=== PATIENT | male | born 1935 | race Caucasian/White ===

== ENCOUNTER 2023-08-07 19:16 | Emergency (ER) | payer OTHER, SELFPAY ==
[2023-08-07 19:17] VITALS: BP 184/92
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
[2023-08-07 21:26] VITALS: BP 180/97
[2023-08-07 21:35] LABS: % Basophils 0.2 % (0-2); % Eosinophils 0.6 % (0-6); % Immature Granulocytes 0.8 % (0-0.5); % Monocytes 5.5 % (1.7-9.3); % Neutrophils 89.9 % (42.2-75.2); Absolute Eosinophils 0.1 10^3/uL (0-0.7); Absolute Immature Granulocytes 0.1 10^3/uL (0-0.05); Absolute Lymphocytes 0.6 10^3/uL (1.2-3.4); Absolute Neutrophils 16.7 10^3/uL (1.4-6.5); Hematocrit 43.2 % (39.0-52.0); Hemoglobin 14.7 g/dL (13.0-18.0); Mean Corpuscular Hgb 31.3 pg (27.0-31.0); Mean Corpuscular Volume 91.9 fL (80.0-94.0); Mean Platelet Volume 9.6 fL (7.4-10.4); Nucleated Red Blood Cells % 0 % (-); Platelet Count 346 10^3/uL (130-400); Red Cell Dist. Width 12.2 % (11.5-14.5); White Blood Cell Count 18.6 10^3/uL (4.8-10.8)
[2023-08-07 21:51] LABS: ALT (SGPT) 40 U/L (0-50); AST (SGOT) 59 U/L (17-59); Albumin 4.6 g/dl (3.5-5.0); Alkaline Phosphatase 80 U/L (38-126); Blood Urea Nitrogen 24 mg/dl (9-20); Carbon Dioxide 28 mmol/L (22-30); Chloride 97 mmol/L (98-107); Glucose 153 mg/dl (70-99); Sodium 136 mmol/L (135-145); Total Bilirubin 0.6 mg/dl (0.2-1.3); Total Protein 7.1 g/dl (6.3-8.2); eGFR > 60.00
[2023-08-07 22:00] VITALS: BP 146/91
[2023-08-07] MEDS: TYLENOL 650 MG PO (22:35)
[2023-08-07 23:00] VITALS: BP 148/88
== END 2023-08-07 23:42 | disposition home or self-care (01) ==
LOC: EMR 19:16
PROVIDERS: Physician Assistant; EMERGENCY PHYSICIAN Emergency Medicine; FAMILY PHYSICIAN Registered Nurse
DX: S39.012A Strain of muscle, fascia and tendon of lower back, initial encounter (principal); S80.02XA Contusion of left knee, initial encounter; V89.2XXA Person injured in unspecified motor-vehicle accident, traffic, initial encounter; Y92.410 Unspecified street and highway as the place of occurrence of the external cause; I48.91 Unspecified atrial fibrillation; I10 Essential (primary) hypertension; Z79.01 Long term (current) use of anticoagulants
CPT/HCPCS: 99284; 70450; 71260; 72050; 73564; 74177; 80053; 85025; Q9967

== ENCOUNTER 2023-08-13 14:18 | Emergency (ER) | payer OTHER, SELFPAY ==
[2023-08-13 14:20] VITALS: BP 119/72
[2023-08-13 14:34] LABS: % Basophils 0.2 % (0-2); % Eosinophils 0.4 % (0-6); % Immature Granulocytes 0.9 % (0-0.5); % Lymphocytes 6.7 % (20.5-51.1); % Monocytes 7.6 % (1.7-9.3); % Neutrophils 84.2 % (42.2-75.2); Absolute Eosinophils 0.1 10^3/uL (0-0.7); Absolute Immature Granulocytes 0.1 10^3/uL (0-0.05); Absolute Lymphocytes 0.9 10^3/uL (1.2-3.4); Absolute Neutrophils 11.1 10^3/uL (1.4-6.5); Hematocrit 30.3 % (39.0-52.0); Mean Corp Hgb Conc. 34.7 g/dL (33.0-37.0); Mean Corpuscular Hgb 31.6 pg (27.0-31.0); Mean Corpuscular Volume 91.3 fL (80.0-94.0); Mean Platelet Volume 9.4 fL (7.4-10.4); Nucleated Red Blood Cells % 0 % (-); Platelet Count 347 10^3/uL (130-400); Red Blood Cell Count 3.32 10^6/uL (4.70-6.10); Red Cell Dist. Width 12.6 % (11.5-14.5); White Blood Cell Count 13.2 10^3/uL (4.8-10.8)
[2023-08-13 14:52] LABS: Blood Urea Nitrogen 29 mg/dl (9-20); Calcium 9.4 mg/dl (8.4-10.2); Carbon Dioxide 24 mmol/L (22-30); Chloride 100 mmol/L (98-107); Glucose 216 mg/dl (70-99); Sodium 132 mmol/L (135-145); eGFR > 60.00
[2023-08-13 14:59] LABS: Hemoglobin 10.5 g/dL (13.0-18.0)
[2023-08-13 16:35] VITALS: BMI 23.9
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
[2023-08-13] MEDS: NSS 1000 IV (17:07)
[2023-08-13 18:03] LABS: Urine Albumin Negative (Neg - Trace); Urine Bilirubin Negative (Negative); Urine Character Clear (Clear); Urine Color Yellow; Urine Glucose Negative (Negative); Urine Ketone Negative (Negative); Urine Leukocyte Negative (Negative); Urine Nitrite Negative (Negative); Urine Occult Blood Negative (Negative); Urine Urobilinogen Negative (Neg - 1+); Urine pH 6.5 (5.0-9.0)
[2023-08-13 18:43] VITALS: BP 155/82
== END 2023-08-13 18:44 | disposition home or self-care (01) ==
LOC: EMR 14:18
PROVIDERS: Emergency Medicine; Physician Assistant; EMERGENCY PHYSICIAN Student in an Organized Health Care Education/Training Program; FAMILY PHYSICIAN Family Medicine
DX: S80.12XA Contusion of left lower leg, initial encounter (principal); S80.02XA Contusion of left knee, initial encounter; R53.83 Other fatigue; K59.00 Constipation, unspecified; V49.9XXA Car occupant (driver) (passenger) injured in unspecified traffic accident, initial encounter; D64.9 Anemia, unspecified; I10 Essential (primary) hypertension; I48.91 Unspecified atrial fibrillation; Z79.01 Long term (current) use of anticoagulants; Z88.2 Allergy status to sulfonamides; Z88.8 Allergy status to other drugs, medicaments and biological substances
CPT/HCPCS: 99284; 96360; 80048; 81003; 85025

== ENCOUNTER → 2023-08-18 12:58 | Outpatient (REF) | payer OTHER, SELFPAY | LOC: HWRAD 12:58 | PROVIDERS: ATTENDING PHYSICIAN Student in an Organized Health Care Education/Training Program | DX: S80.12XD Contusion of left lower leg, subsequent encounter (principal); T14.8XXA Other injury of unspecified body region, initial encounter | CPT/HCPCS: 93971 ==

== ENCOUNTER 2023-08-21 21:55 | Inpatient (IN) | payer OTHER, SELFPAY ==
[2023-08-21 13:55] VITALS: BP 129/77
[2023-08-21 14:16] LABS: % Basophils 0.1 % (0-2); % Eosinophils 0.3 % (0-6); % Immature Granulocytes 0.6 % (0-0.5); % Lymphocytes 5.3 % (20.5-51.1); % Monocytes 9.4 % (1.7-9.3); % Neutrophils 84.3 % (42.2-75.2); Absolute Immature Granulocytes 0.1 10^3/uL (0-0.05); Absolute Lymphocytes 0.8 10^3/uL (1.2-3.4); Absolute Monocytes 1.3 10^3/uL (0.1-0.6); Hematocrit 31.6 % (39.0-52.0); Hemoglobin 10.8 g/dL (13.0-18.0); Mean Corp Hgb Conc. 34.2 g/dL (33.0-37.0); Mean Corpuscular Hgb 30.9 pg (27.0-31.0); Mean Corpuscular Volume 90.5 fL (80.0-94.0); Mean Platelet Volume 8.8 fL (7.4-10.4); Nucleated Red Blood Cells % 0 % (-); Platelet Count 695 10^3/uL (130-400); Red Blood Cell Count 3.49 10^6/uL (4.70-6.10); Red Cell Dist. Width 13.3 % (11.5-14.5); White Blood Cell Count 14.2 10^3/uL (4.8-10.8)
[2023-08-21 14:35] LABS: ALT (SGPT) 30 U/L (0-50); AST (SGOT) 35 U/L (17-59); Albumin 4.1 g/dl (3.5-5.0); Alkaline Phosphatase 167 U/L (38-126); Blood Urea Nitrogen 47 mg/dl (9-20); Calcium 9.5 mg/dl (8.4-10.2); Carbon Dioxide 30 mmol/L (22-30); Chloride 95 mmol/L (98-107); Glucose 176 mg/dl (70-99); Potassium 4.9 mmol/L (3.5-5.1); Sodium 131 mmol/L (135-145); Total Bilirubin 1.2 mg/dl (0.2-1.3); eGFR > 60.00
[2023-08-21 14:43] LABS: NT-proBNP 2570 pg/ml
[2023-08-21 19:02] LABS: Lactic Acid 1.3 mmol/L (0.7-2.0)
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
[2023-08-21] MEDS: VANCOCIN 200 IV (20:16)
[2023-08-21 21:25] VITALS: BP 137/76
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
[2023-08-21 22:09] LABS: Iron 59 ug/dl (49-181)
[2023-08-21 22:17] LABS: Percent Saturation 18 % (20-50); Total Iron Binding Capacity 321 ug/dl (261-462)
[2023-08-22] VITALS (8 sets, daily range): BP systolic 113–145; BP diastolic 60–96; PULSE 102; BMI 23.6
[2023-08-22] MEDS: ANCEF 10 IV ×3 (02:19→17:55)
--- NOTE | 2023-08-22 04:45 | PTCARENOTE ---
Pt received from the ED NAD. BRIA Pt with no complaints of pain at this time. Oriented to room, call rodney within reach
[2023-08-22 05:15] LABS: Folate 13.4 ng/ml (2.76-20); Vitamin B12 296 pg/ml (239-931)
[2023-08-22 05:37] LABS: Hematocrit 26.9 % (39.0-52.0); Hemoglobin 9.4 g/dL (13.0-18.0); Mean Corp Hgb Conc. 34.9 g/dL (33.0-37.0); Mean Corpuscular Hgb 31.2 pg (27.0-31.0); Mean Corpuscular Volume 89.4 fL (80.0-94.0); Mean Platelet Volume 8.7 fL (7.4-10.4); Platelet Count 545 10^3/uL (130-400); Red Blood Cell Count 3.01 10^6/uL (4.70-6.10)
[2023-08-22 06:04] LABS: Blood Urea Nitrogen 38 mg/dl (9-20); Calcium 9.1 mg/dl (8.4-10.2); Carbon Dioxide 29 mmol/L (22-30); Chloride 95 mmol/L (98-107); Estimated Creatinine Clearance 63 ml/min; Glucose 131 mg/dl (70-99); Potassium 3.9 mmol/L (3.5-5.1); Sodium 132 mmol/L (135-145); eGFR > 60.00
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
[2023-08-22 08:10] LABS: Glucose - Point of Care 131 mg/dl (70-99)
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
[2023-08-22 08:32] LABS: Glycohemoglobin (HgbA1c) 6.8 % (4.0-5.6)
[2023-08-22] MEDS: NOVOLOG FLEXPEN-LOW RESISTANCE SC (08:36)
[2023-08-22] MEDS: TENORMIN 50 MG PO (08:37)
[2023-08-22] MEDS: ZESTRIL 40 MG PO (08:37)
[2023-08-22] MEDS: ORETIC 25 MG PO (08:37)
[2023-08-22] MEDS: TYLENOL 1000 MG PO ×3 (09:52→21:08)
--- NOTE | 2023-08-22 10:58 | WOUNDNOTE ---
L DORSAL FOOT WITH PHOTO FLASH
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
[2023-08-22] MEDS: ROXICODONE 5 MG PO (12:03)
[2023-08-22 12:07] LABS: Glucose - Point of Care 253 mg/dl (70-99)
[2023-08-22] MEDS: NOVOLOG FLEXPEN-LOW RESISTANCE 3 UNITS SC ×2 (12:20→17:55)
[2023-08-22] MEDS: SANTYL OINTMENT 1 APPLIC TOPICAL (12:33)
[2023-08-22] MEDS: LOPRESSOR 50 MG PO ×3 (15:55→23:29)
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
[2023-08-22 16:48] LABS: Glucose - Point of Care 178 mg/dl (70-99)
[2023-08-22 17:44] LABS: Glucose - Point of Care 263 mg/dl (70-99)
[2023-08-22] MEDS: CRESTOR 20 MG PO (17:54)
[2023-08-22 21:50] LABS: Glucose - Point of Care 153 mg/dl (70-99)
[2023-08-23] MEDS: ANCEF 10 IV ×3 (01:55→18:02)
[2023-08-23] MEDS: ROXICODONE 5 MG PO ×3 (05:10→18:00)
[2023-08-23] MEDS: LOPRESSOR 50 MG PO (06:25)
[2023-08-23 06:42] LABS: Hematocrit 29.1 % (39.0-52.0); Hemoglobin 9.6 g/dL (13.0-18.0); Mean Corpuscular Hgb 30.5 pg (27.0-31.0); Mean Corpuscular Volume 92.4 fL (80.0-94.0); Mean Platelet Volume 8.9 fL (7.4-10.4); Platelet Count 550 10^3/uL (130-400); Red Blood Cell Count 3.15 10^6/uL (4.70-6.10); Red Cell Dist. Width 13.1 % (11.5-14.5); White Blood Cell Count 9.2 10^3/uL (4.8-10.8)
[2023-08-23 07:00] VITALS: BP 125/73
[2023-08-23 07:02] LABS: Blood Urea Nitrogen 26 mg/dl (9-20); Calcium 8.7 mg/dl (8.4-10.2); Carbon Dioxide 31 mmol/L (22-30); Chloride 98 mmol/L (98-107); Estimated Creatinine Clearance 72 ml/min; Glucose 149 mg/dl (70-99); Magnesium 1.9 mg/dl (1.6-2.3); Sodium 133 mmol/L (135-145); eGFR > 60.00
[2023-08-23 07:53] LABS: Glucose - Point of Care 155 mg/dl (70-99)
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
[2023-08-23] MEDS: SANTYL OINTMENT 1 APPLIC TOPICAL (09:15)
[2023-08-23] MEDS: TYLENOL 1000 MG PO ×3 (09:15→20:42)
[2023-08-23] MEDS: NOVOLOG FLEXPEN-LOW RESISTANCE 1 UNITS SC ×2 (09:16→18:01)
[2023-08-23] MEDS: ORETIC 25 MG PO (09:16)
[2023-08-23] MEDS: ZESTRIL 40 MG PO (09:16)
[2023-08-23] MEDS: LOPRESSOR 25 MG PO ×2 (11:25→20:42)
[2023-08-23 12:11] LABS: Glucose - Point of Care 260 mg/dl (70-99)
--- NOTE | 2023-08-23 12:14 | VNURNOTE ---
Home Health Liaison met with patient and son Florian at 1145 to discuss [facility] nurse/therapy, visits, schedule and homebound status. Patient is agreeable and understands that visits at home will be 2-3 x per week to assess and teach medical management
and wound care.
[facility] brochure provided with contact information. Patient is aware that [facility] will contact him for start of care in 1-2 days after discharge from .
[facility] referral completed in [facility].
--- NOTE | 2023-08-23 14:14 | W.PN.GS2 ---
Today's Communication / Plan
-
No acute surgical intervention warranted at this time. The black eschar over the knee will slough off with time.
Wound care/activity: Ricky wrap and elevate the leg above the level of the heart is much as possible to reduce swelling when resting. Periodic ice packs as able as well. Company with nonocclusive dressing. Okay to ambulate and bear weight as able.
NSAIDs for pain control.
Continue holding anticoagulation for now, consider restarting tomorrow.
Reasonable for short course of antibiotics x 7 days
Surgery will continue to follow.
Assessment / Plan
-
This is an 88-year-old male with a history of A-fib on Eliquis, CHF, diabetes, COPD who presents with a traumatic left lower extremity hematoma. There is no underlying bony pathology and his motor sensory exam is reassuring. His white count is
normal and he is afebrile. There are no signs of infected hematoma at this time.
No acute surgical intervention warranted at this time. The black eschar over the knee will slough off with time.
Wound care/activity: Ricky wrap and elevate the leg above the level of the heart is much as possible to reduce swelling when resting. Periodic ice packs as able as well. Company with nonocclusive dressing. Okay to ambulate and bear weight as able.
NSAIDs for pain control.
Continue holding anticoagulation for now, consider restarting tomorrow.
Reasonable for short course of antibiotics x 7 days
Surgery will continue to follow.
Time Spent
Total Time Spent with Patient (in minutes): 20
Subjective Data
-
Date of Service: August 23, 2023
Interval Events:
No acute events overnight. Slept well. Pain Controlled.
Objective Data
-
Intake and Output
08/22/23 08/23/23 08/24/23
06:59 06:59 06:59
Intake Total 1380 / 1380
Output Total 200 / 200 1575 / 1575
Balance -200 / -200 -195 / -195
Intake:
Oral fluids 1380 / 1380
Output:
Urine, Voided 200 / 200 1575 / 1575
Vital Signs
Temp Pulse Resp BP Pulse Ox
97.4 F 83 16 125/73 98
08/23/23 07:00 08/23/23 07:00 08/23/23 07:00 08/23/23 07:00 08/23/23 07:00
Lab Results
08/23/23 06:12
08/23/23 06:12
Calcium 8.7 mg/dl (8.4-10.2) 08/23/23 06:12
Magnesium 1.9 mg/dl (1.6-2.3) 08/23/23 06:12
Total Bilirubin 1.2 mg/dl (0.2-1.3) 08/21/23 14:07
AST 35 U/L (17-59) 08/21/23 14:07
ALT 30 U/L (0-50) 08/21/23 14:07
Alkaline Phosphatase 167 U/L (38-126) H 08/21/23 14:07
Total Protein 7.0 g/dl (6.3-8.2) 08/21/23 14:07
Albumin 4.1 g/dl (3.5-5.0) 08/21/23 14:07
Physical Exam
-
GENERAL/NEURO: Awake, Alert, no distress
CHEST: Unlabored breathing on RA
ABDOMEN: Soft, Non-Tender, Non-Distended
Left lower extremity: He has some mild edema in the left lower extremity below the knee. He has a roughly 3 x 4 cm black eschar over the knee with no sign of an underlying infection. There is bruising noted down to the level of the toes however
motor and sensation is intact and equal bilaterally.
[2023-08-23 15:00] VITALS: BP 132/70
[2023-08-23 15:08] LABS: Glucose - Point of Care 291 mg/dl (70-99)
[2023-08-23] MEDS: NOVOLOG FLEXPEN-LOW RESISTANCE 3 UNITS SC (15:31)
[2023-08-23 17:17] LABS: Glucose - Point of Care 151 mg/dl (70-99)
[2023-08-23] MEDS: CRESTOR 20 MG PO (18:02)
[2023-08-23] MEDS: ANCEF IV (18:08)
[2023-08-23 21:35] LABS: Glucose - Point of Care 201 mg/dl (70-99)
[2023-08-23 23:35] VITALS: BP 118/59
[2023-08-24] MEDS: ANCEF 10 IV ×3 (02:38→17:04)
[2023-08-24] MEDS: ROXICODONE 5 MG PO ×3 (03:51→20:41)
[2023-08-24 05:40] LABS: Hematocrit 32.4 % (39.0-52.0); Hemoglobin 10.8 g/dL (13.0-18.0); Mean Corp Hgb Conc. 33.3 g/dL (33.0-37.0); Mean Corpuscular Hgb 30.9 pg (27.0-31.0); Mean Corpuscular Volume 92.8 fL (80.0-94.0); Mean Platelet Volume 8.8 fL (7.4-10.4); Platelet Count 614 10^3/uL (130-400); Red Blood Cell Count 3.49 10^6/uL (4.70-6.10); Red Cell Dist. Width 13.1 % (11.5-14.5); White Blood Cell Count 10.3 10^3/uL (4.8-10.8)
[2023-08-24 05:58] LABS: Blood Urea Nitrogen 26 mg/dl (9-20); Carbon Dioxide 29 mmol/L (22-30); Chloride 99 mmol/L (98-107); Estimated Creatinine Clearance 72 ml/min; Glucose 138 mg/dl (70-99); Magnesium 1.9 mg/dl (1.6-2.3); Potassium 4.3 mmol/L (3.5-5.1); Sodium 132 mmol/L (135-145); eGFR > 60.00
[2023-08-24 06:00] VITALS: BMI 22.3
[2023-08-24 07:41] VITALS: BP 143/79
[2023-08-24 08:02] LABS: Glucose - Point of Care 147 mg/dl (70-99)
[2023-08-24] MEDS: NOVOLOG FLEXPEN-LOW RESISTANCE SC ×2 (08:03→16:51)
[2023-08-24] MEDS: TYLENOL 1000 MG PO ×3 (08:58→21:37)
[2023-08-24] MEDS: ZESTRIL 20 MG PO (08:58)
[2023-08-24] MEDS: ELIQUIS 5 MG PO ×2 (08:59→20:41)
[2023-08-24] MEDS: ORETIC 25 MG PO (08:59)
[2023-08-24] MEDS: LOPRESSOR 25 MG PO ×2 (08:59→20:42)
[2023-08-24] MEDS: SANTYL OINTMENT 1 APPLIC TOPICAL (08:59)
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
--- NOTE | 2023-08-24 10:54 | W.PN.GS2 ---
Addendum entered and electronically signed by Mikey Mcgregor MD 08/24/23 11:44:
pt seen and examined with FI[employer] PRO[employer] MANAGER
family at bedside
pt and family report significant improvement in redness and swelling
LLE dressing/wrap removed: minimal erythema, persistent knee swelling/fluctuance and dry clean eschar in place
A/P: no role for surgical debridement/drainage
compression
just simple wound care to keep eschar covered for now
abx for cellulitis
outpt follow up with [facility]
signing off, please call if can be of further assistance with care
Original Note:
Today's Communication / Plan
-
Local wound care
Assessment / Plan
-
This is an 88-year-old male with a history of A-fib on Eliquis, CHF, diabetes, COPD who presents with a traumatic left lower extremity hematoma. There is no underlying bony pathology and his motor sensory exam is reassuring. His white count is
normal and he is afebrile. There are no signs of infected hematoma at this time.
[facility]
Labs stable
Will continue to follow non-operatively. The black eschar over the knee will slough off with time.
Wound care/activity: Ricky wrap and elevate the leg to reduce swelling when resting. Periodic ice packs as able as well. Company with nonocclusive dressing. Okay to ambulate and bear weight as able.
NSAIDs for pain control.
Ok to restart AC
Reasonable for short course of antibiotics x 7 days
Follow up in wound care clinic
Subjective Data
-
Date of Service: August 24, 2023
Patient seen and examined at bedside with Dr. Mcgregor. No significant pain to extremity. Edema improved.
Objective Data
-
Intake and Output
08/23/23 08/24/23 08/25/23
06:59 06:59 06:59
Intake Total 1380 / 1380 920 / 920
Output Total 1575 / 1575 750 / 750
Balance -195 / -195 170 / 170
Intake:
Oral fluids 1380 / 1380 920 / 920
Output:
Urine, Voided 1575 / 1575 750 / 750
Vital Signs
Temp Pulse Resp BP Pulse Ox
97.3 F 75 16 143/79 98
08/24/23 07:41 08/24/23 07:41 08/24/23 07:41 08/24/23 07:41 08/24/23 07:41
Lab Results
08/24/23 05:17
08/24/23 05:17
Calcium 9.0 mg/dl (8.4-10.2) 08/24/23 05:17
Magnesium 1.9 mg/dl (1.6-2.3) 08/24/23 05:17
Total Bilirubin 1.2 mg/dl (0.2-1.3) 08/21/23 14:07
AST 35 U/L (17-59) 08/21/23 14:07
ALT 30 U/L (0-50) 08/21/23 14:07
Alkaline Phosphatase 167 U/L (38-126) H 08/21/23 14:07
Total Protein 7.0 g/dl (6.3-8.2) 08/21/23 14:07
Albumin 4.1 g/dl (3.5-5.0) 08/21/23 14:07
Physical Exam
-
NAD
Left lower extremity: He has some mild edema in the left lower extremity below the knee. He has a roughly 3 x 4 cm black eschar over the knee with underlying hematoma. There is bruising noted down to the level of the toes however motor and
sensation is intact and equal bilaterally.
[2023-08-24 12:19] LABS: Glucose - Point of Care 260 mg/dl (70-99)
[2023-08-24] MEDS: LEXAPRO 10 MG PO (12:40)
[2023-08-24] MEDS: NOVOLOG FLEXPEN-LOW RESISTANCE 3 UNITS SC (12:40)
[2023-08-24 14:01] VITALS: BP 127/75
[2023-08-24 15:40] VITALS: BP 123/62
[2023-08-24 16:46] LABS: Glucose - Point of Care 129 mg/dl (70-99)
[2023-08-24] MEDS: CRESTOR 20 MG PO (17:04)
[2023-08-24 21:40] LABS: Glucose - Point of Care 273 mg/dl (70-99)
[2023-08-24 23:33] VITALS: BP 110/66
[2023-08-25] MEDS: ANCEF 10 IV ×2 (02:00→08:51)
[2023-08-25 05:37] LABS: Hematocrit 32.7 % (39.0-52.0); Hemoglobin 10.7 g/dL (13.0-18.0); Mean Corp Hgb Conc. 32.7 g/dL (33.0-37.0); Mean Corpuscular Hgb 30.5 pg (27.0-31.0); Mean Corpuscular Volume 93.2 fL (80.0-94.0); Mean Platelet Volume 8.6 fL (7.4-10.4); Platelet Count 602 10^3/uL (130-400); Red Blood Cell Count 3.51 10^6/uL (4.70-6.10); White Blood Cell Count 9.2 10^3/uL (4.8-10.8)
[2023-08-25 06:00] VITALS: BMI 22.1
[2023-08-25 06:10] LABS: Blood Urea Nitrogen 24 mg/dl (9-20); Calcium 9.2 mg/dl (8.4-10.2); Carbon Dioxide 29 mmol/L (22-30); Chloride 97 mmol/L (98-107); Estimated Creatinine Clearance 69 ml/min; Glucose 142 mg/dl (70-99); Potassium 4.2 mmol/L (3.5-5.1); Sodium 133 mmol/L (135-145); eGFR > 60.00
[2023-08-25 07:54] VITALS: BP 151/90
[2023-08-25 08:10] LABS: Glucose - Point of Care 136 mg/dl (70-99)
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
[2023-08-25] MEDS: NOVOLOG FLEXPEN-LOW RESISTANCE SC (08:40)
[2023-08-25] MEDS: TYLENOL 1000 MG PO (08:48)
[2023-08-25] MEDS: ZESTRIL 20 MG PO (08:49)
[2023-08-25] MEDS: SANTYL OINTMENT 1 APPLIC TOPICAL (08:49)
[2023-08-25] MEDS: LEXAPRO 10 MG PO (08:49)
[2023-08-25] MEDS: LOPRESSOR 25 MG PO (08:49)
[2023-08-25] MEDS: ORETIC 25 MG PO (08:49)
[2023-08-25] MEDS: ELIQUIS 5 MG PO (08:49)
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
--- NOTE | 2023-08-25 11:39 | CM ---
Pt for discharge today
[facility] to follow for wound care
Pt has ride home
Discussed IMM
Plan - home with [facility]
[2023-08-25 11:59] LABS: Glucose - Point of Care 253 mg/dl (70-99)
[2023-08-25] MEDS: NOVOLOG FLEXPEN-LOW RESISTANCE 3 UNITS SC (12:13)
[2023-08-25 12:27] VITALS: BP 132/83
--- NOTE | 2023-08-25 14:43 | VNURNOTE ---
Call received from patient's daughter in law late 08/24 to discuss private caregivers.
Private caregiver resource list provided along with contact for Stacy Knowles and discussed.
Wound care instructions scanned and emailed to above [employer] coordinator Stacy Knowles.
== END 2023-08-25 12:36 | disposition home health service (06) | DRG 872 ==
LOC: 3 WEST ACU 21:55
PROVIDERS: Nurse Practitioner; Physician Assistant Medical; Student in an Organized Health Care Education/Training Program; ADMITTING PHYSICIAN Hospitalist; ATTENDING PHYSICIAN Family Medicine; EMERGENCY PHYSICIAN Emergency Medicine; FAMILY PHYSICIAN Student in an Organized Health Care Education/Training Program; OTHER PHYSICIAN Surgery
DX: A41.9 Sepsis, unspecified organism (principal); L03.116 Cellulitis of left lower limb; I48.21 Permanent atrial fibrillation; E87.1 Hypo-osmolality and hyponatremia; Z66 Do not resuscitate; D50.0 Iron deficiency anemia secondary to blood loss (chronic); I50.9 Heart failure, unspecified; I11.0 Hypertensive heart disease with heart failure; E11.9 Type 2 diabetes mellitus without complications; Z87.891 Personal history of nicotine dependence; J44.89 Other specified chronic obstructive pulmonary disease; Z79.01 Long term (current) use of anticoagulants; S80.12XA Contusion of left lower leg, initial encounter; E78.00 Pure hypercholesterolemia, unspecified; F41.9 Anxiety disorder, unspecified; F32.A Depression, unspecified; V49.9XXD Car occupant (driver) (passenger) injured in unspecified traffic accident, subsequent encounter
CPT/HCPCS: 76882; 80048; 80053; 82607; 82728; 82746; 82962; 83036; 83540; 83550; 83605; 83735; 83880; 85025; 85027; 87040; 96365; 97116; 97162; 97166; 97530; 97535; 99285

== ENCOUNTER → 2023-09-01 12:36 | Outpatient (REF) | payer OTHER, SELFPAY | LOC: WOUND 12:36 | PROVIDERS: ATTENDING PHYSICIAN Surgery; FAMILY PHYSICIAN Student in an Organized Health Care Education/Training Program | DX: S80.12XA Contusion of left lower leg, initial encounter (principal); X58.XXXA Exposure to other specified factors, initial encounter; L97.229 Non-pressure chronic ulcer of left calf with unspecified severity; I87.2 Venous insufficiency (chronic) (peripheral); I73.9 Peripheral vascular disease, unspecified; I48.91 Unspecified atrial fibrillation; E11.21 Type 2 diabetes mellitus with diabetic nephropathy; I13.0 Hypertensive heart and chronic kidney disease with heart failure and stage 1 through stage 4 chronic kidney disease, or unspecified chronic kidney disease; N18.1 Chronic kidney disease, stage 1; I50.23 Acute on chronic systolic (congestive) heart failure; Z79.01 Long term (current) use of anticoagulants | CPT/HCPCS: 99204 ==

== ENCOUNTER → 2023-09-08 11:32 | Outpatient (REF) | payer OTHER, SELFPAY | LOC: WOUND 11:32 | PROVIDERS: ATTENDING PHYSICIAN Surgery; FAMILY PHYSICIAN Student in an Organized Health Care Education/Training Program | DX: S80.12XA Contusion of left lower leg, initial encounter (principal); L97.229 Non-pressure chronic ulcer of left calf with unspecified severity; I87.2 Venous insufficiency (chronic) (peripheral); I73.9 Peripheral vascular disease, unspecified; I48.91 Unspecified atrial fibrillation; E11.21 Type 2 diabetes mellitus with diabetic nephropathy; I13.0 Hypertensive heart and chronic kidney disease with heart failure and stage 1 through stage 4 chronic kidney disease, or unspecified chronic kidney disease; I50.23 Acute on chronic systolic (congestive) heart failure; Z79.01 Long term (current) use of anticoagulants; N18.1 Chronic kidney disease, stage 1; X58.XXXA Exposure to other specified factors, initial encounter | CPT/HCPCS: 99213 ==

== ENCOUNTER → 2023-09-22 11:16 | Outpatient (REF) | payer OTHER, SELFPAY | LOC: WOUND 11:16 | PROVIDERS: ATTENDING PHYSICIAN Surgery; FAMILY PHYSICIAN Student in an Organized Health Care Education/Training Program | DX: L97.229 Non-pressure chronic ulcer of left calf with unspecified severity (principal); S80.12XA Contusion of left lower leg, initial encounter; I87.2 Venous insufficiency (chronic) (peripheral); I73.9 Peripheral vascular disease, unspecified; I48.91 Unspecified atrial fibrillation; E11.21 Type 2 diabetes mellitus with diabetic nephropathy; I13.0 Hypertensive heart and chronic kidney disease with heart failure and stage 1 through stage 4 chronic kidney disease, or unspecified chronic kidney disease; I50.23 Acute on chronic systolic (congestive) heart failure; N18.1 Chronic kidney disease, stage 1; Z79.01 Long term (current) use of anticoagulants; V89.2XXA Person injured in unspecified motor-vehicle accident, traffic, initial encounter | CPT/HCPCS: 10140; 99213 ==

== ENCOUNTER → 2023-09-29 14:51 | Outpatient (REF) | payer OTHER, SELFPAY | LOC: WOUND 14:51 | PROVIDERS: ATTENDING PHYSICIAN Surgery; FAMILY PHYSICIAN Student in an Organized Health Care Education/Training Program | DX: L97.229 Non-pressure chronic ulcer of left calf with unspecified severity (principal); S51.012A Laceration without foreign body of left elbow, initial encounter; S81.812A Laceration without foreign body, left lower leg, initial encounter; S80.12XA Contusion of left lower leg, initial encounter; I87.2 Venous insufficiency (chronic) (peripheral); I73.9 Peripheral vascular disease, unspecified; I48.91 Unspecified atrial fibrillation; E11.21 Type 2 diabetes mellitus with diabetic nephropathy; I13.0 Hypertensive heart and chronic kidney disease with heart failure and stage 1 through stage 4 chronic kidney disease, or unspecified chronic kidney disease; I50.23 Acute on chronic systolic (congestive) heart failure; N18.1 Chronic kidney disease, stage 1; Z79.01 Long term (current) use of anticoagulants; V89.2XXA Person injured in unspecified motor-vehicle accident, traffic, initial encounter | CPT/HCPCS: 99213 ==

== ENCOUNTER → 2023-10-06 14:39 | Outpatient (REF) | payer OTHER, SELFPAY | LOC: WOUND 14:39 | PROVIDERS: ATTENDING PHYSICIAN Surgery; FAMILY PHYSICIAN Student in an Organized Health Care Education/Training Program | DX: L97.229 Non-pressure chronic ulcer of left calf with unspecified severity (principal); S51.012A Laceration without foreign body of left elbow, initial encounter; S81.812A Laceration without foreign body, left lower leg, initial encounter; I87.2 Venous insufficiency (chronic) (peripheral); I73.9 Peripheral vascular disease, unspecified; I48.91 Unspecified atrial fibrillation; E11.21 Type 2 diabetes mellitus with diabetic nephropathy; I13.0 Hypertensive heart and chronic kidney disease with heart failure and stage 1 through stage 4 chronic kidney disease, or unspecified chronic kidney disease; I50.23 Acute on chronic systolic (congestive) heart failure; N18.1 Chronic kidney disease, stage 1; Z79.01 Long term (current) use of anticoagulants | CPT/HCPCS: 11042 ==

== ENCOUNTER → 2023-10-13 13:52 | Outpatient (REF) | payer OTHER, SELFPAY | LOC: WOUND 13:52 | PROVIDERS: ATTENDING PHYSICIAN Surgery; FAMILY PHYSICIAN Student in an Organized Health Care Education/Training Program | DX: L97.229 Non-pressure chronic ulcer of left calf with unspecified severity (principal); S51.012A Laceration without foreign body of left elbow, initial encounter; S81.812A Laceration without foreign body, left lower leg, initial encounter; S80.12XA Contusion of left lower leg, initial encounter; I87.2 Venous insufficiency (chronic) (peripheral); I73.9 Peripheral vascular disease, unspecified; I48.91 Unspecified atrial fibrillation; E11.21 Type 2 diabetes mellitus with diabetic nephropathy; I13.0 Hypertensive heart and chronic kidney disease with heart failure and stage 1 through stage 4 chronic kidney disease, or unspecified chronic kidney disease; I50.23 Acute on chronic systolic (congestive) heart failure; Z79.01 Long term (current) use of anticoagulants; N18.1 Chronic kidney disease, stage 1; V89.2XXA Person injured in unspecified motor-vehicle accident, traffic, initial encounter | CPT/HCPCS: 99213 ==

== ENCOUNTER → 2023-10-27 13:50 | Outpatient (REF) | payer OTHER, SELFPAY | LOC: WOUND 13:50 | PROVIDERS: ATTENDING PHYSICIAN Surgery; FAMILY PHYSICIAN Student in an Organized Health Care Education/Training Program | DX: L97.229 Non-pressure chronic ulcer of left calf with unspecified severity (principal); S51.012A Laceration without foreign body of left elbow, initial encounter; S81.812A Laceration without foreign body, left lower leg, initial encounter; S80.12XA Contusion of left lower leg, initial encounter; I87.2 Venous insufficiency (chronic) (peripheral); X58.XXXA Exposure to other specified factors, initial encounter | CPT/HCPCS: 11042 ==

== ENCOUNTER → 2023-11-01 12:46 | Outpatient (REF) | payer OTHER, SELFPAY | LOC: RAD 12:46 | PROVIDERS: ATTENDING PHYSICIAN Surgery; FAMILY PHYSICIAN Student in an Organized Health Care Education/Training Program | DX: S80.12XA Contusion of left lower leg, initial encounter (principal); I73.9 Peripheral vascular disease, unspecified; I87.2 Venous insufficiency (chronic) (peripheral) | CPT/HCPCS: 93922; 93925; 93971 ==

== ENCOUNTER → 2023-11-07 13:16 | Outpatient (REF) | payer OTHER, MEDICARE, SELFPAY | LOC: WOUND 13:16 | PROVIDERS: ATTENDING PHYSICIAN Surgery; FAMILY PHYSICIAN Student in an Organized Health Care Education/Training Program | DX: L97.229 Non-pressure chronic ulcer of left calf with unspecified severity (principal); S51.021A Laceration with foreign body of right elbow, initial encounter; X58.XXXA Exposure to other specified factors, initial encounter; S81.812A Laceration without foreign body, left lower leg, initial encounter; S80.12XA Contusion of left lower leg, initial encounter; I87.2 Venous insufficiency (chronic) (peripheral); I73.9 Peripheral vascular disease, unspecified | CPT/HCPCS: 11042 ==

== ENCOUNTER → 2023-11-16 13:33 | Outpatient (REF) | payer OTHER, MEDICARE, SELFPAY | LOC: WOUND 13:33 | PROVIDERS: ATTENDING PHYSICIAN Surgery; FAMILY PHYSICIAN Student in an Organized Health Care Education/Training Program | DX: L97.229 Non-pressure chronic ulcer of left calf with unspecified severity (principal); S51.012A Laceration without foreign body of left elbow, initial encounter; S81.812A Laceration without foreign body, left lower leg, initial encounter; S80.12XA Contusion of left lower leg, initial encounter; I87.2 Venous insufficiency (chronic) (peripheral); I73.9 Peripheral vascular disease, unspecified; I48.91 Unspecified atrial fibrillation; E11.21 Type 2 diabetes mellitus with diabetic nephropathy; I13.0 Hypertensive heart and chronic kidney disease with heart failure and stage 1 through stage 4 chronic kidney disease, or unspecified chronic kidney disease; I50.23 Acute on chronic systolic (congestive) heart failure; N18.1 Chronic kidney disease, stage 1; Z79.01 Long term (current) use of anticoagulants; V89.2XXA Person injured in unspecified motor-vehicle accident, traffic, initial encounter | CPT/HCPCS: 11042 ==

== ENCOUNTER → 2023-12-01 10:54 | Outpatient (REF) | payer OTHER, MEDICARE, SELFPAY | LOC: WOUND 10:54 | PROVIDERS: ATTENDING PHYSICIAN Surgery; FAMILY PHYSICIAN Student in an Organized Health Care Education/Training Program | DX: L97.229 Non-pressure chronic ulcer of left calf with unspecified severity (principal); S51.012A Laceration without foreign body of left elbow, initial encounter; S81.812A Laceration without foreign body, left lower leg, initial encounter; S80.12XA Contusion of left lower leg, initial encounter; I87.2 Venous insufficiency (chronic) (peripheral); I73.9 Peripheral vascular disease, unspecified; I48.91 Unspecified atrial fibrillation; E11.21 Type 2 diabetes mellitus with diabetic nephropathy; I13.0 Hypertensive heart and chronic kidney disease with heart failure and stage 1 through stage 4 chronic kidney disease, or unspecified chronic kidney disease; I50.23 Acute on chronic systolic (congestive) heart failure; Z79.01 Long term (current) use of anticoagulants; N18.1 Chronic kidney disease, stage 1; E11.29 Type 2 diabetes mellitus with other diabetic kidney complication | CPT/HCPCS: 11042 ==

== ENCOUNTER → 2023-12-15 10:54 | Outpatient (REF) | payer OTHER, SELFPAY | LOC: WOUND 10:54 | PROVIDERS: ATTENDING PHYSICIAN Surgery; FAMILY PHYSICIAN Student in an Organized Health Care Education/Training Program | DX: L97.823 Non-pressure chronic ulcer of other part of left lower leg with necrosis of muscle (principal); S81.812A Laceration without foreign body, left lower leg, initial encounter; S80.12XA Contusion of left lower leg, initial encounter; I87.2 Venous insufficiency (chronic) (peripheral); I73.9 Peripheral vascular disease, unspecified; I48.91 Unspecified atrial fibrillation; E11.21 Type 2 diabetes mellitus with diabetic nephropathy; I13.0 Hypertensive heart and chronic kidney disease with heart failure and stage 1 through stage 4 chronic kidney disease, or unspecified chronic kidney disease; I50.23 Acute on chronic systolic (congestive) heart failure; N18.1 Chronic kidney disease, stage 1; Z79.01 Long term (current) use of anticoagulants; E11.22 Type 2 diabetes mellitus with diabetic chronic kidney disease | CPT/HCPCS: 11042 ==

== ENCOUNTER → 2024-01-05 11:03 | Outpatient (REF) | payer OTHER, SELFPAY | LOC: WOUND 11:03 | PROVIDERS: ATTENDING PHYSICIAN Surgery; FAMILY PHYSICIAN Student in an Organized Health Care Education/Training Program | DX: L97.823 Non-pressure chronic ulcer of other part of left lower leg with necrosis of muscle (principal); S81.812A Laceration without foreign body, left lower leg, initial encounter; S80.12XA Contusion of left lower leg, initial encounter; I87.2 Venous insufficiency (chronic) (peripheral); I73.9 Peripheral vascular disease, unspecified; I48.91 Unspecified atrial fibrillation; E11.21 Type 2 diabetes mellitus with diabetic nephropathy; I13.0 Hypertensive heart and chronic kidney disease with heart failure and stage 1 through stage 4 chronic kidney disease, or unspecified chronic kidney disease; N18.1 Chronic kidney disease, stage 1; W19.XXXA Unspecified fall, initial encounter | CPT/HCPCS: 11042 ==

== ENCOUNTER → 2024-01-10 12:52 | Outpatient (REF) | payer OTHER, SELFPAY | LOC: RCS 12:52 | PROVIDERS: ATTENDING PHYSICIAN Internal Medicine Cardiovascular Disease; FAMILY PHYSICIAN Student in an Organized Health Care Education/Training Program | DX: I35.1 Nonrheumatic aortic (valve) insufficiency (principal) | CPT/HCPCS: 93306 ==

== ENCOUNTER → 2024-01-26 11:20 | Outpatient (REF) | payer OTHER, SELFPAY | LOC: WOUND 11:20 | PROVIDERS: ATTENDING PHYSICIAN Surgery; FAMILY PHYSICIAN Student in an Organized Health Care Education/Training Program | DX: L97.823 Non-pressure chronic ulcer of other part of left lower leg with necrosis of muscle (principal); S81.812A Laceration without foreign body, left lower leg, initial encounter; S80.12XA Contusion of left lower leg, initial encounter; I73.9 Peripheral vascular disease, unspecified; I87.2 Venous insufficiency (chronic) (peripheral); I48.91 Unspecified atrial fibrillation; E11.21 Type 2 diabetes mellitus with diabetic nephropathy; I13.0 Hypertensive heart and chronic kidney disease with heart failure and stage 1 through stage 4 chronic kidney disease, or unspecified chronic kidney disease; I50.23 Acute on chronic systolic (congestive) heart failure; N18.1 Chronic kidney disease, stage 1; Z79.01 Long term (current) use of anticoagulants; X58.XXXA Exposure to other specified factors, initial encounter | CPT/HCPCS: 99212 ==

== ENCOUNTER 2024-04-01 08:12 | Inpatient (IN) | payer OTHER, SELFPAY ==
[2024-03-30 12:02] VITALS: BP 131/68
--- NOTE | 2024-03-30 13:00 | ED.GENMED ---
History of Present Illness
<Saritha Vela PA-C - Last Filed: 03/30/24 20:20>
General
Chief Complaint: Swelling
Source: patient and family
Exam Limitations: none
Time Seen by Provider: 03/30/24 12:59
Nursing documentation reviewed up to this point in time: agreed with
History of Present Illness
History of Present Illness:
Patient is an 89-year-old male with history atrial fibrillation on Eliquis, hypertension, hyperlipidemia, chronic back pain presenting to the emergency department with generalized weakness and left lower extremity swelling. Patient states that over
the past week he has been generally weak and fatigued with lack of appetite. Approximately 3 days ago he noticed that his left lower leg was swollen and left foot was red and painful. He is having difficulty ambulating due to pain. He may have
had some chills over the past week. No recent falls or trauma to the foot patient denies any known fevers, chest pain, cough, abdominal pain, urinary symptoms.
Family states that approximately week ago when they saw their dad he was at his baseline and has gradually declined over the past week. They feel that he has been more short of breath with minimal exertion, as well.
Patient did miss a few doses of Eliquis this past week.
Past History
<Saritha Vela PA-C - Last Filed: 03/30/24 20:20>
Past History
ED Past Medical History: Arrthythmia (Atrial fibrillation) and HTN
ED Past Surgical History: None
Social History
Tobacco: Non-smoker
Alcohol: None
Personal:
Living: with family
Employment: Retired
Review of Systems
<Saritha Vela PA-C - Last Filed: 03/30/24 20:20>
Review of Systems
Allergies reviewed?: Yes
All Other Systems: ROS reviewed and negative except as documented in HPI and ROS
Phy Exam
<Saritha Vela PA-C - Last Filed: 03/30/24 20:20>
Physical Exam
Physical Exam:
Vitals: Patient's vital signs are stable. Afebrile
General: Patient is weak appearing. In no apparent distress.
Skin: Warm and dry, no rashes or lesions
Head: Normocephalic, atraumatic
Eyes: Sclera nonicteric. EOMs intact. No nystagmus.
Throat: Dry mucous membranes. Protecting airway
Neck: Normal ROM, no cervical spine tenderness, no meningismus
Cardiac: Irregular rate, normal rhythm, no murmurs.
Pulm: Normal respiratory effort, no wheezes, rales, rhonchi heard on exam.
Abdomen: Abdomen soft and nontender. No rebound tenderness or guarding.
Extremities: 2+ pitting edema of left lower extremity from mid calf to foot. Erythema and tenderness of left foot most notable at left MTP joint with extension across dorsum of foot. Palpable left DP pulse. Negative Homans' sign of left lower
extremity. No edema or cyanosis of RLE with palpable distal pulse.
Neuro: AAOx3. Grossly intact.
Psychiatric: Normal affect.
Scores
<Saritha Vela PA-C - Last Filed: 03/30/24 20:20>
Heart Failure Risk
Heart Failure Risk Score: Yes
History of Stroke or TIA: No
History of intubation for respiratory distress: No
Heart rate on ED arrival >/= 110: No
SaO2 <90% on arrival on room air: No
HR >/=110 during 3min walk test (or too ill to perform test): No
ECG has acute ischemic changes: No
Urea >/=12mmol/L (BUN 33.6mg/dL): Yes
Serum CO2>/=35mmol/L: No
Troponin I or T elevated to OR Level (0.4mg/dL): No
NT-proBNP >/=5,000ng/L (5,000pg/ml): Yes
HF Risk Score: 2
Admission Status: MEDIUM RISK 9.2% Consider observation or discharge to home with homecare & f/u visit to PCP/[employer] Technician, or SNF for treatment
Course
<Saritha Vela PA-C - Last Filed: 03/30/24 20:20>
Orders/Labs/Results
Orders:
Orders
03/30/24 13:24
Electrocardiogram (*1) Urgent
Reason for Study: Fatigue / Weakness
Foot, Left 3 View [CR Foot - Left Min 3 Views] Urgent
Comment:
Reason For Exam: atraumatic pain/swelling L foot near MTP
US Periph Venous LOWER Ext LT Urgent
Comment:
Reason For Exam: atraumtic LLE swelling
03/30/24 13:40
COVID-19 Antigen Urgent
Source: Nasal Swab
Complete Blood Count/With Diff Urgent
Comprehensive Metabolic Panel Urgent
NT-proBNP Urgent
Troponin I Urgent
Uric Acid Urgent
Comment: URIC ACID ADDED ON BY FLOOR 2PM 03-30-24
Influenza A+B Rapid Molecular Urgent
MATTHIEU Source: Nasal Swab
Specimen Description:
03/30/24 14:02
Add On- LAB Urgent
Tests Added?: uric acid
03/30/24 Dinner
Regular
At Your Request: Full Participation
Does patient need a safe tray?: No
03/30/24 15:19
CR Chest - 2 Views Urgent
Comment:
Reason For Exam: shortness of breath, elevated pro-bnp
03/30/24 15:22
0.9% Sodium Chloride 500 ml [Nss] 500 ml IV BOLUS
03/30/24 15:47
Urinalysis Reflex To Culture Urgent
Date Specimen was Collected: 03/30/24
Time Specimen was Collected: 14:51
Urine Microscopic Reflex Cult Urgent
Urine Culture Urgent
MATTHIEU Source: U
Specimen Description:
Date Specimen was Collected: 03/30/24
Time Specimen was Collected: 14:51
03/30/24 16:39
CeFAZolin 2 GRAM [Ancef] 2 grams in 10 ml IV NOW
03/30/24 17:08
Admit/Transfer Patient As Directed
Co-Sign Provider:
Level of Care: Observation services
Assign to:: Medical/Surgical
Physician / Group: preet
Diagnosis: cellulitis, gout
PRN Pain Medication Management As Directed
May give lesser potent ordered pain med per pt: Yes
preference::
Protocol:: Medication orders for pain may be administered in a
manner that supports deferring to patient preference
when the pt is:
- Requesting an ordered lesser potent pain medication.
Least to most potent pain medications are defined
as: acetaminophen < NSAID < tramadol < opioids
(morphine, oxycodone, hydromorphone).
- Requesting a lesser dose of the same medication IF
ORDERED.
- Requesting a less intrusive route of administration
if both routes are prescribed by the provider (PO <
IV).
03/30/24 17:09
Code Status As Directed
Resuscitation Status: Do not resuscitate
Reached after discussion with pt or family/Healthcare POA: Yes
DNR Bracelet Application ONCE
03/30/24 17:45
Acetaminophen [Tylenol] 1,000 mg PO TIDPRN PRN
Dextrose 50%-Water [Dextrose 50% Syringe] 12.5 grams IV [id number] PRN
Glucagon [GlucaGen] 1 mg IM PRN PRN
03/30/24 17:45
VTE Contraindication Routine
VTE Mechanical Device Contraindication: Medical Contraindication
Pharmocologic Contraindication: Medical Contraindication
Activity As Directed
Activity Level: As Tolerated
Bedside Glucose Monitoring As Directed
Frequency: AC&HS
Additional Instructions:: Change to q6h if pt on TPN, tube feeding or not eating
Vital Signs As Directed
Frequency: Per unit guidelines
03/30/24 18:00
Prednisone [Deltasone] 40 mg PO DAILY
Rosuvastatin Calcium [Crestor] 20 mg PO QPM
03/30/24 20:00
Apixaban [Eliquis] 5 mg PO BID
METFORMIN HCl [Glucophage] 500 mg PO BID
Metoprolol [Lopressor] 25 mg PO BID
03/31/24 00:00
CeFAZolin 1 GRAM [Ancef] 1 gram in 5 ml IV Q8
03/31/24 06:00
Complete Blood Count/With Diff IN AM
Comprehensive Metabolic Panel IN AM
Glycohemoglobin (HgbA1c) IN AM
03/31/24 07:30
Insulin Aspart Corrective Low [Novolog Flexpen-Low Resistance] See Protocol SC AC
03/31/24 08:00
Hydrochlorothiazide [Oretic] 25 mg PO DAILY
Lisinopril [Zestril] 10 mg PO DAILY
Abnormal Lab Results
03/30/24 03/30/24
13:40 15:47
WBC 14.8 H 10^3/uL
(4.8-10.8)
RBC 4.34 L 10^6/uL
(4.70-6.10)
Hgb 12.8 L g/dL
(13.0-18.0)
Hct 37.9 L %
(39.0-52.0)
Abs Immat Gran (auto) 0.2 H 10^3/uL
(0-0.05)
Absolute Neuts (auto) 13.3 H 10^3/uL
(1.4-6.5)
Absolute Lymphs (auto) 0.4 L 10^3/uL
(1.2-3.4)
Absolute Monos (auto) 1.0 H 10^3/uL
(0.1-0.6)
Immature Gran % 1.0 H %
(0-0.5)
Neutrophils % 89.4 H %
(42.2-75.2)
Lymphocytes % 2.6 L %
(20.5-51.1)
Sodium 134 L mmol/L
(135-145)
Chloride 94 L mmol/L
(98-107)
BUN 34 H mg/dl
(9-20)
Glucose 158 H mg/dl
(70-99)
Alkaline Phosphatase 191 H U/L
(38-126)
Total Protein 5.9 L g/dl
(6.3-8.2)
Albumin 3.4 L g/dl
(3.5-5.0)
Urine Ketones 1+ A
(Negative)
Ur Occult Blood Reflex 1+ A
(Negative)
Urine Bilirubin 1+ A
(Negative)
Urine RBC 3-6 A /HPF
(0-2)
Urine WBC (Reflex) 11-15 A /HPF
(0-5)
Urine Bacteria (Reflex) Few A
(Negative)
Urine Albumin (Reflex) 2+ A
(Neg - Trace)
03/30/24 13:40
03/30/24 13:40
Vital Signs
Initial and Last Documented VS:
Initial Vital Signs
Temp Pulse Resp BP Pulse Ox
98.1 F 96 18 131/68 99
03/30/24 12:02 03/30/24 12:02 03/30/24 12:02 03/30/24 12:02 03/30/24 12:02
Last Documented Vital Signs
Temp Pulse Resp BP Pulse Ox
98 F 120 18 168/88 94
03/30/24 18:33 03/30/24 17:55 03/30/24 17:55 03/30/24 17:55 03/30/24 18:33
<Chandan Miguel, DO - Last Filed: 03/30/24 15:28>
Orders/Labs/Results
Orders:
Orders
03/30/24 13:24
Electrocardiogram (*1) Urgent
Reason for Study: Fatigue / Weakness
Foot, Left 3 View [CR Foot - Left Min 3 Views] Urgent
Comment:
Reason For Exam: atraumatic pain/swelling L foot near MTP
US Periph Venous LOWER Ext LT Urgent
Comment:
Reason For Exam: atraumtic LLE swelling
03/30/24 13:40
COVID-19 Antigen Urgent
Source: Nasal Swab
Complete Blood Count/With Diff Urgent
Comprehensive Metabolic Panel Urgent
NT-proBNP Urgent
Troponin I Urgent
Uric Acid Urgent
Comment: URIC ACID ADDED ON BY FLOOR 2PM 03-30-24
Influenza A+B Rapid Molecular Urgent
MATTHIEU Source: Nasal Swab
Specimen Description:
03/30/24 14:02
Add On- LAB Urgent
Tests Added?: uric acid
03/30/24 Dinner
Regular
At Your Request: Full Participation
Does patient need a safe tray?: No
03/30/24 15:19
CR Chest - 2 Views Urgent
Comment:
Reason For Exam: shortness of breath, elevated pro-bnp
03/30/24 15:22
0.9% Sodium Chloride 500 ml [Nss] 500 ml IV BOLUS
03/30/24 15:47
Urinalysis Reflex To Culture Urgent
Date Specimen was Collected: 03/30/24
Time Specimen was Collected: 14:51
Urine Microscopic Reflex Cult Urgent
Urine Culture Urgent
MATTHIEU Source: U
Specimen Description:
Date Specimen was Collected: 03/30/24
Time Specimen was Collected: 14:51
03/30/24 16:39
CeFAZolin 2 GRAM [Ancef] 2 grams in 10 ml IV NOW
03/30/24 17:08
Admit/Transfer Patient As Directed
Co-Sign Provider:
Level of Care: Observation services
Assign to:: Medical/Surgical
Physician / Group: preet
Diagnosis: cellulitis, gout
PRN Pain Medication Management As Directed
May give lesser potent ordered pain med per pt: Yes
preference::
Protocol:: Medication orders for pain may be administered in a
manner that supports deferring to patient preference
when the pt is:
- Requesting an ordered lesser potent pain medication.
Least to most potent pain medications are defined
as: acetaminophen < NSAID < tramadol < opioids
(morphine, oxycodone, hydromorphone).
- Requesting a lesser dose of the same medication IF
ORDERED.
- Requesting a less intrusive route of administration
if both routes are prescribed by the provider (PO <
IV).
03/30/24 17:09
Code Status As Directed
Resuscitation Status: Do not resuscitate
Reached after discussion with pt or family/Healthcare POA: Yes
DNR Bracelet Application ONCE
03/30/24 17:45
Acetaminophen [Tylenol] 1,000 mg PO TIDPRN PRN
Dextrose 50%-Water [Dextrose 50% Syringe] 12.5 grams IV [id number] PRN
Glucagon [GlucaGen] 1 mg IM PRN PRN
03/30/24 17:45
VTE Contraindication Routine
VTE Mechanical Device Contraindication: Medical Contraindication
Pharmocologic Contraindication: Medical Contraindication
Activity As Directed
Activity Level: As Tolerated
Bedside Glucose Monitoring As Directed
Frequency: AC&HS
Additional Instructions:: Change to q6h if pt on TPN, tube feeding or not eating
Vital Signs As Directed
Frequency: Per unit guidelines
03/30/24 18:00
Prednisone [Deltasone] 40 mg PO DAILY
Rosuvastatin Calcium [Crestor] 20 mg PO QPM
03/30/24 20:00
Apixaban [Eliquis] 5 mg PO BID
METFORMIN HCl [Glucophage] 500 mg PO BID
Metoprolol [Lopressor] 25 mg PO BID
03/31/24 00:00
CeFAZolin 1 GRAM [Ancef] 1 gram in 5 ml IV Q8
03/31/24 06:00
Complete Blood Count/With Diff IN AM
Comprehensive Metabolic Panel IN AM
Glycohemoglobin (HgbA1c) IN AM
03/31/24 07:30
Insulin Aspart Corrective Low [Novolog Flexpen-Low Resistance] See Protocol SC AC
03/31/24 08:00
Hydrochlorothiazide [Oretic] 25 mg PO DAILY
Lisinopril [Zestril] 10 mg PO DAILY
Abnormal Lab Results
03/30/24 03/30/24
13:40 15:47
WBC 14.8 H 10^3/uL
(4.8-10.8)
RBC 4.34 L 10^6/uL
(4.70-6.10)
Hgb 12.8 L g/dL
(13.0-18.0)
Hct 37.9 L %
(39.0-52.0)
Abs Immat Gran (auto) 0.2 H 10^3/uL
(0-0.05)
Absolute Neuts (auto) 13.3 H 10^3/uL
(1.4-6.5)
Absolute Lymphs (auto) 0.4 L 10^3/uL
(1.2-3.4)
Absolute Monos (auto) 1.0 H 10^3/uL
(0.1-0.6)
Immature Gran % 1.0 H %
(0-0.5)
Neutrophils % 89.4 H %
(42.2-75.2)
Lymphocytes % 2.6 L %
(20.5-51.1)
Sodium 134 L mmol/L
(135-145)
Chloride 94 L mmol/L
(98-107)
BUN 34 H mg/dl
(9-20)
Glucose 158 H mg/dl
(70-99)
Alkaline Phosphatase 191 H U/L
(38-126)
Total Protein 5.9 L g/dl
(6.3-8.2)
Albumin 3.4 L g/dl
(3.5-5.0)
Urine Ketones 1+ A
(Negative)
Ur Occult Blood Reflex 1+ A
(Negative)
Urine Bilirubin 1+ A
(Negative)
Urine RBC 3-6 A /HPF
(0-2)
Urine WBC (Reflex) 11-15 A /HPF
(0-5)
Urine Bacteria (Reflex) Few A
(Negative)
Urine Albumin (Reflex) 2+ A
(Neg - Trace)
03/30/24 13:40
03/30/24 13:40
Vital Signs
Initial and Last Documented VS:
Initial Vital Signs
Temp Pulse Resp BP Pulse Ox
98.1 F 96 18 131/68 99
03/30/24 12:02 03/30/24 12:02 03/30/24 12:02 03/30/24 12:02 03/30/24 12:02
Last Documented Vital Signs
Temp Pulse Resp BP Pulse Ox
98 F 120 18 168/88 94
03/30/24 18:33 03/30/24 17:55 03/30/24 17:55 03/30/24 17:55 03/30/24 18:33
<Saritha Vela PA-C - Last Filed: 03/30/24 20:20>
MDM/Problems Addressed
Differential Diagnosis Includes:
Not limited to: Dehydration, viral illness, UTI, cardiac arrhythmia, DVT, cellulitis, gouty arthritis, osteomyelitis, CHF, etc.
MDM/Problems Addressed:
89-year-old male with history as documented presenting with new onset left lower extremity swelling and fatigue over the past week. No fevers. No chest pain or shortness of breath. Patient did miss a few doses of his Eliquis this week. Vital
stable. Patient is afebrile. He is not hypoxic. On exam�patient does appear weak appearing although in no apparent distress. He does have 2+ pitting edema of his left lower extremity from mid calf to foot with erythema noted at left first MTP
extending across his dorsal foot. There is no open wound or purulent drainage. LLE with palpable distal pulses. Patient's family did also mention that he seems more short of breath over the past few weeks. Differential broad at this time although
concern for possible cellulitis versus gout of foot. Will check labs, urine, x-ray left foot. Given recent noncompliance with Eliquis�will obtain ultrasound to rule out DVT. Given possible dyspnea and weakness�will check BNP, troponin, and chest
x-ray. Will closely monitor and reassess.
Chronic conditions affecting care:
Hypertension, atrial fibrillation on Eliquis
Acute Exacerbation and/or Progression of Chronic Illness:
N/A
<Saritha Vela PA-C - Last Filed: 03/30/24 20:20>
*Radiology
Radiology exam reviewed: preliminary read by ED provider (Chest x-ray reviewed by dc-no acute abnormalities) and radiology read reviewed
*Pulse Oximetry
Patient hypoxic: no
*EKG
Interpreted by ED Provider?: Yes
EKG Intrepretation Date: 03/30/24
Interpretation: abnormal
Comparison EKG: no changes
Heart Rate: 105
Rate: tachycardiac
Rhythm: a-fib and PVC's
[place]: normal axis
Interval: normal QT interval
Ischemia: no ischemia
*Computer Operations Supervisor Interpretation
Rate: normal
Interpretation: abnormal
Heart Rate: 96
Rhythm: a-fib
*Critical Care Note
Total Time (30-74mins, 75-104mins- exclusive of procedures): Not Applicable
Data Reviewed
Review of Other/Old Records Reveals: Progress Notes (Hospital records from admission from 08/21/2023 to 08/25/2023 for cellulitis of left lower leg treated with Ancef)
<Saritha Vela PA-C - Last Filed: 03/30/24 20:20>
Patient Management
Discussion with other providers: Hospitalist
Escalation/DeEscalation of care consider admission/obs:
Admit for IV antibiotics
<Saritha Vela PA-C - Last Filed: 03/30/24 20:20>
Update Note
Update Note:
Update: Labs reviewed. Leukocytosis of 14.8 noted. Mild dehydration noted on chemistry. proBNP 5790, troponin of 0.021. Viral swabs negative. X-ray of left foot shows degenerative changes around the first MTP joint without acute abnormalities.
Fortunately�ultrasound was negative for DVT of left lower extremity. Chest x-ray without acute disease. Given patient is not overtly in heart failure�will small bolus of IV fluids given he has been without p.o. intake over the past week.
Consideration of cellulitis versus gout of left lower extremity. Given history of cellulitis and left leg with [place] ptosis and distribution of erythema�will initiate antibiotics to cover possible infectious process. Patient will be admitted to
the hospital for IV antibiotics, further evaluation. Patient started on Ancef in emergency department. Patient accepted to hospitalist service in stable condition with urine studies still pending. Case seen with attending physician.
ED Attending Note
<Saritha Vela PA-C - Last Filed: 03/30/24 20:20>
-
Portions of this chart may have been created with voice recognition software.� Occasional wrong word or��sound alike� substitutions may have occurred due to the inherent limitations of voice recognition software.
<Chandan Miguel DO - Last Filed: 03/30/24 15:28>
ED Attending Note
Patient seen and examined by attending physician: Yes
I performed the substantive portion of visit, reviewed & personally made and approve the management plan that is documented in note by myself or SUJIT.: Yes
ED Attending Note:
89-year-old male with a history of sciatica, A-fib, cellulitis of left lower extremity who presents with generalized weakness, mild shortness of breath and swelling and redness to the left lower extremity. Patient's son's had additional history.
They present a picture of the way his foot look last night which was much darker small standing. Today looks little better but still red and swollen. He did hold his ELiquis due to recent dental infection and bleeding. felt a little feverish. no
cp. mild SOB on exertion. also noted redness in the R 2nd MCP joint. Son also reports that he is just not been himself. Exam: Redness noted at the right second MCP joint with some mild swelling. There is normal motion here. Left lower extremity
is edematous. There is redness noted starting at the left MTP but radiates across the dorsum of the foot and has redness at the left lower extremity as well. Her is warm and well-perfused. Right lower extremity grossly unremarkable. Heart
irregularly irregular. Lungs clear. Assessment plan: Check chest x-ray, await DVT scan. Question whether this is cellulitic as he has a history of that left lower gouty arthritis. Given his age and findings, admit for IV antibiotics and
reassessment.
Discharge Plan
Departure
Patient Disposition: Admit
Date of Disposition: 03/30/24
Time of Disposition: 16:41
Presentation/result/management discussed w/ accepting MD/DO: Hospitalist
Discharge Problem:
Cellulitis of foot, left, Left leg swelling, Weakness
Interventions
Interventions:
*Risk Screen - Suicide Last Done: 03/30/24 12:02
*General Assessment Last Done: 03/30/24 12:02
*Neglect/Abuse Screening Last Done: 03/30/24 12:02
ED- Fall Risk Assessment Last Done: 03/30/24 17:43
*ED COVID-19 Vaccine History Last Done: 03/30/24 17:58
*Nursing Disposition Last Done: 03/30/24 17:43
ED- Cardiac Assessment Last Done: 03/30/24 15:58
ED- Pulmonary Assessment Last Done: 03/30/24 15:58
ED-Skin Assessment Last Done: 03/30/24 15:58
Discharge Date and Time
Discharge Date/Time: 03/30/24 17:45
[2024-03-30 13:51] LABS: % Basophils 0.2 % (0-2); % Lymphocytes 2.6 % (20.5-51.1); % Monocytes 6.8 % (1.7-9.3); % Neutrophils 89.4 % (42.2-75.2); Absolute Immature Granulocytes 0.2 10^3/uL (0-0.05); Absolute Lymphocytes 0.4 10^3/uL (1.2-3.4); Absolute Neutrophils 13.3 10^3/uL (1.4-6.5); Hematocrit 37.9 % (39.0-52.0); Hemoglobin 12.8 g/dL (13.0-18.0); Mean Corp Hgb Conc. 33.8 g/dL (33.0-37.0); Mean Corpuscular Hgb 29.5 pg (27.0-31.0); Mean Corpuscular Volume 87.3 fL (80.0-94.0); Nucleated Red Blood Cells % 0 % (-); Platelet Count 283 10^3/uL (130-400); Red Blood Cell Count 4.34 10^6/uL (4.70-6.10); Red Cell Dist. Width 13.5 % (11.5-14.5); White Blood Cell Count 14.8 10^3/uL (4.8-10.8)
[2024-03-30 14:08] LABS: ALT (SGPT) 44 U/L (0-50); AST (SGOT) 47 U/L (17-59); Albumin 3.4 g/dl (3.5-5.0); Alkaline Phosphatase 191 U/L (38-126); Blood Urea Nitrogen 34 mg/dl (9-20); Calcium 8.5 mg/dl (8.4-10.2); Carbon Dioxide 29 mmol/L (22-30); Chloride 94 mmol/L (98-107); Glucose 158 mg/dl (70-99); Potassium 3.5 mmol/L (3.5-5.1); Sodium 134 mmol/L (135-145); Total Bilirubin 0.7 mg/dl (0.2-1.3); Total Protein 5.9 g/dl (6.3-8.2); eGFR > 60.00
[2024-03-30 14:19] LABS: NT-proBNP 5790 pg/ml; Troponin I 0.021 ng/ml
[2024-03-30 14:23] LABS: COVID-19 Antigen Negative (Negative)
[2024-03-30 15:08] LABS: Uric Acid 6.2 mg/dl (3.5-8.5)
[2024-03-30] MEDS: NSS 500 IV (15:46)
[2024-03-30 15:50] VITALS: BP 135/69
[2024-03-30 16:37] LABS: Urine Albumin 2+ (Neg - Trace); Urine Bilirubin 1+ (Negative); Urine Character Slightly Cloudy (Clear); Urine Color Yellow; Urine Glucose Negative (Negative); Urine Ketone 1+ (Negative); Urine Leukocyte Negative (Negative); Urine Nitrite Negative (Negative); Urine Occult Blood 1+ (Negative); Urine Specific Gravity 1.015 (<1.030); Urine Urobilinogen 1+ (Neg - 1+)
[2024-03-30] MEDS: ANCEF 10 IV (16:53)
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
[2024-03-30 17:26] LABS: Urine Granular Cast >15 /LPF (0)
[2024-03-30 17:28] LABS: Urine Amorphous Seen; Urine Bacteria Few (Negative)
[2024-03-30 17:55] VITALS: BP 168/88
[2024-03-30 18:03] LABS: Glucose - Point of Care 174 mg/dl (70-99)
[2024-03-30] MEDS: CRESTOR 20 MG PO (18:17)
[2024-03-30] MEDS: DELTASONE 40 MG PO (18:17)
[2024-03-30] MEDS: TYLENOL 1000 MG PO (18:18)
[2024-03-30 18:20] VITALS: BMI 23.2
[2024-03-30 19:55] VITALS: BP 120/77
[2024-03-30] MEDS: ELIQUIS 5 MG PO (20:31)
[2024-03-30] MEDS: GLUCOPHAGE 500 MG PO (20:32)
[2024-03-30] MEDS: LOPRESSOR 25 MG PO (20:32)
[2024-03-30 21:31] LABS: Glucose - Point of Care 190 mg/dl (70-99)
[2024-03-30] MEDS: ANCEF 5 IV (23:05)
[2024-03-30 23:38] VITALS: BP 139/81
[2024-03-31 06:00] VITALS: BMI 22.6
[2024-03-31 07:25] LABS: Glucose - Point of Care 157 mg/dl (70-99)
[2024-03-31] MEDS: ORETIC 25 MG PO (07:35)
[2024-03-31] MEDS: LOPRESSOR 25 MG PO ×2 (07:36→21:57)
[2024-03-31] MEDS: NOVOLOG FLEXPEN-LOW RESISTANCE 1 UNITS SC ×2 (07:36→12:58)
[2024-03-31] MEDS: ZESTRIL 10 MG PO (07:36)
[2024-03-31] MEDS: ELIQUIS 5 MG PO ×2 (07:36→21:57)
[2024-03-31] MEDS: DELTASONE 40 MG PO (07:36)
[2024-03-31] MEDS: GLUCOPHAGE 500 MG PO ×2 (07:36→21:57)
[2024-03-31] MEDS: ANCEF 5 IV ×3 (07:37→23:00)
[2024-03-31] MEDS: FLUSH (NSS) 1 FLUSH IV ×2 (07:37→16:31)
[2024-03-31 07:40] VITALS: BP 153/107
[2024-03-31 07:41] LABS: % Basophils 0.2 % (0-2); % Immature Granulocytes 1.1 % (0-0.5); % Lymphocytes 2.7 % (20.5-51.1); % Monocytes 3.3 % (1.7-9.3); % Neutrophils 92.7 % (42.2-75.2); Absolute Immature Granulocytes 0.2 10^3/uL (0-0.05); Absolute Lymphocytes 0.5 10^3/uL (1.2-3.4); Absolute Monocytes 0.6 10^3/uL (0.1-0.6); Absolute Neutrophils 15.4 10^3/uL (1.4-6.5); Hematocrit 38.6 % (39.0-52.0); Hemoglobin 13.6 g/dL (13.0-18.0); Mean Corp Hgb Conc. 35.2 g/dL (33.0-37.0); Mean Corpuscular Hgb 30.5 pg (27.0-31.0); Mean Corpuscular Volume 86.5 fL (80.0-94.0); Mean Platelet Volume 10.7 fL (7.4-10.4); Nucleated Red Blood Cells % 0 % (-); Platelet Count 318 10^3/uL (130-400); Red Blood Cell Count 4.46 10^6/uL (4.70-6.10); Red Cell Dist. Width 13.3 % (11.5-14.5); White Blood Cell Count 16.6 10^3/uL (4.8-10.8)
[2024-03-31 08:31] LABS: ALT (SGPT) 35 U/L (0-50); AST (SGOT) 40 U/L (17-59); Albumin 3.4 g/dl (3.5-5.0); Alkaline Phosphatase 209 U/L (38-126); Blood Urea Nitrogen 33 mg/dl (9-20); Calcium 8.4 mg/dl (8.4-10.2); Carbon Dioxide 29 mmol/L (22-30); Chloride 94 mmol/L (98-107); Estimated Creatinine Clearance 61 ml/min; Glucose 181 mg/dl (70-99); Potassium 3.5 mmol/L (3.5-5.1); Sodium 139 mmol/L (135-145); Total Bilirubin 0.7 mg/dl (0.2-1.3); Total Protein 6.1 g/dl (6.3-8.2); eGFR > 60.00
[2024-03-31 11:11] LABS: Glucose - Point of Care 189 mg/dl (70-99)
--- NOTE | 2024-03-31 12:55 | W.PN.HOSP.TC ---
Today's Communication/Plan
-
stop HCTZ
stop steroids
add Colchicine
continue Ancef
consult Inf Dis
Assessment / Plan
Assessment / Plan
# Left lower extremity cellulitis of calf region and left distal foot
# Prior history of left lower extremity cellulitis after traumatic injury
-Leukocytosis
-Venous ultrasound without evidence of DVT
-IV fluids given, hold further fluids
-Cefazolin. Calf looks like cellulitis, difficult to tell if foot is cellulitic or gout, pt on steroids since yesterday and does not look classic for either entity
WBC 14.8-->16.6k
# Likely gout of right MCP joint of thumb
-Uric acid level 6.2
-Ankle x-ray unremarkable
-Stop prednisone 40 mg daily and change to daily Colchicine
Will request opinion of Inf Dis
# Chronic dyspnea
-Not overtly in heart failure
-Influenza and flu negative
-Cardiac BNP of 5700
-Chest x-ray negative
-Hold further IV fluids
Permanent atrial fibrillation
-Continue metoprolol
-Continue Eliquis
Essential hypertension
-Continue lisinopril,
stop hydrochlorothiazide, concern for association with gout
Hyperlipidemia
-Continue statin
Chronic back pain
-Continue Tylenol
Anxiety/depression
Type 2 diabetes
-Continue metformin
-Insulin sliding scale
Hga1c 7.0%
will stop steroids in pt who is diabetic
DNR/DNI
DVT prophylaxis-Eliquis
Regular diet
met with 2 sons and d-i-l in room, many questions and issues
time 50 minutes
Anticipated Discharge: 24 - 48 hours
Subjective/Interval History
-
Date of Service: March 31, 2024
Still with pain in left foot and rt hand
Objective Data
-
Labs:
Laboratory Results
03/31/24
06:37
WBC 16.6 H
Hgb 13.6
Hct 38.6 L
Plt Count 318
Sodium 139
Potassium 3.5
Chloride 94 L
Carbon Dioxide 29
BUN 33 H
Creatinine 0.8
Glucose 181 H
Calcium 8.4
Total Bilirubin 0.7
AST 40
ALT 35
Alkaline Phosphatase 209 H
Vital Signs:
Vital Signs
Temp Pulse Resp BP Pulse Ox
97.6 F 91 19 153/107 98
03/31/24 07:40 03/31/24 07:40 03/31/24 07:40 03/31/24 07:40 03/31/24 10:00
I&O
03/30/24 03/31/24 04/01/24
06:59 06:59 06:59
Intake Total 240 / 240
Output Total 250 / 250
Balance -10 / -10
Review of Systems
-
History Source: Patient and Family (2 sons and 1 d-i-l)
Constitutional: Denies Fever
EENT: Reports No Symptoms Reported
Respiratory: Reports Trouble Breathing (chronic sob)
Cardiac: Reports No Symptoms; Denies Chest Pain
Abdomen/GI: Reports No Symptoms
Genitourinary: Reports No Symptoms
Skin: Reports Rash
Physical Exam
-
General: Well Developed, Well Nourished and No Apparent Distress
HEENT: Normocephalic, Atraumatic and Moist Mucous Membranes
Respiratory: Clear to Auscultation; Negative Wheezes, Rales or Rhonchi
Cardiac: S1/S2 and Irregular Rhythm
GI: Nontender and Nondistended
Skin: Rash (Rt 1st MCP joint with gout changes. Left foot and distal left leg with marked errythema and cellulitic changes)
Neuro: Awake, Alert and Oriented
--- NOTE | 2024-03-31 13:46 | CM ---
Patient seen at bedside.
Dx: gout, cellulitis
PMH: chronic back pain, htn, afib, hyperlipidemia
Lives in a 2 story home alone, 1 step to enter - has a stair glide
PLOF: Independent, driving
DME: walker, shower chair, cane,toilet rails,
Denies SNF/[facility] in past
Denies housing/utilities/food/transportation insecurities
PCP: Simi Green
Pharmacy: [facility] [place] [facility], [place]
PLAN: Home, no needs anticipated
[2024-03-31] MEDS: COLCHICINE 0.6 MG PO (14:09)
[2024-03-31 15:39] VITALS: BP 132/79
[2024-03-31 15:52] LABS: Glucose - Point of Care 214 mg/dl (70-99)
[2024-03-31] MEDS: TYLENOL 1000 MG PO ×2 (16:30→22:04)
[2024-03-31] MEDS: CRESTOR 20 MG PO (18:01)
[2024-03-31] MEDS: NOVOLOG FLEXPEN-LOW RESISTANCE 2 UNITS SC (18:02)
[2024-03-31 21:40] LABS: Glucose - Point of Care 297 mg/dl (70-99)
[2024-03-31 23:30] VITALS: BP 117/72
[2024-04-01 07:45] LABS: Glucose - Point of Care 166 mg/dl (70-99)
[2024-04-01 07:54] VITALS: BP 146/93
[2024-04-01] MEDS: NOVOLOG FLEXPEN-LOW RESISTANCE 1 UNITS SC ×2 (08:00→11:57)
[2024-04-01] MEDS: ZESTRIL 10 MG PO (08:01)
[2024-04-01] MEDS: ELIQUIS 5 MG PO ×2 (08:01→22:10)
[2024-04-01] MEDS: ANCEF 5 IV (08:01)
[2024-04-01] MEDS: GLUCOPHAGE 500 MG PO ×2 (08:02→22:10)
[2024-04-01] MEDS: COLCHICINE 0.6 MG PO (08:02)
[2024-04-01] MEDS: LOPRESSOR 25 MG PO ×2 (08:02→22:10)
[2024-04-01 08:05] LABS: Hematocrit 39.2 % (39.0-52.0); Hemoglobin 13.8 g/dL (13.0-18.0); Mean Corp Hgb Conc. 35.2 g/dL (33.0-37.0); Mean Corpuscular Hgb 30.1 pg (27.0-31.0); Mean Corpuscular Volume 85.6 fL (80.0-94.0); Red Blood Cell Count 4.58 10^6/uL (4.70-6.10); Red Cell Dist. Width 13.5 % (11.5-14.5); White Blood Cell Count 26.4 10^3/uL (4.8-10.8)
[2024-04-01 08:15] LABS: Erythrocyte Sed Rate 37 mm/hour (0-20)
[2024-04-01 08:17] LABS: % Basophils 0.2 % (0-2); % Immature Granulocytes 1.3 % (0-0.5); % Lymphocytes 2.8 % (20.5-51.1); % Monocytes 4.5 % (1.7-9.3); % Neutrophils 91.2 % (42.2-75.2); Absolute Immature Granulocytes 0.4 10^3/uL (0-0.05); Absolute Lymphocytes 0.8 10^3/uL (1.2-3.4); Absolute Monocytes 1.2 10^3/uL (0.1-0.6); Absolute Neutrophils 24.1 10^3/uL (1.4-6.5); Mean Platelet Volume 10.4 fL (7.4-10.4); Nucleated Red Blood Cells % 0 % (-); Platelet Count 405 10^3/uL (130-400)
[2024-04-01 08:39] LABS: Blood Urea Nitrogen 53 mg/dl (9-20); Calcium 8.4 mg/dl (8.4-10.2); Carbon Dioxide 29 mmol/L (22-30); Chloride 93 mmol/L (98-107); Estimated Creatinine Clearance 40 ml/min; Glucose 160 mg/dl (70-99); Potassium 3.5 mmol/L (3.5-5.1); Sodium 136 mmol/L (135-145); eGFR 58.17
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
[2024-04-01 11:36] LABS: Glucose - Point of Care 168 mg/dl (70-99)
[2024-04-01 15:20] VITALS: BP 136/93
--- NOTE | 2024-04-01 15:21 | CM ---
Addendum entered by Peyton Linder 04/01/24 16:38:
Physical therapy are recommending home health for patient and behavioral health case manager reviewed options with patient and patient is agreeable to [facility], referral sent to [facility].
Original Note:
Chart reviewed and patient switched to inpatient, IMM completed and placed on chart. Patient would benefit from PT/OT to assisted with discharge planing for patient.
Plan; Await PT/OT evaluations.
--- NOTE | 2024-04-01 15:34 | W.PN.HOSP.TC ---
Today's Communication/Plan
-
PT/OT evals for possible DC
Assessment / Plan
Assessment / Plan
Assessment:
LLE foot gout
R MCP joint of thumb gout
- both acute flares
- continue Colchicine daily x 7 days and PCP f/u
- no concern per ID for infectious etiology requiring Abx. Abx stopped. DVT study was negative.
Steroid induced leukocytosis
- no concern per ID for infectious etiology requiring Abx. Abx stopped.
Chronic dyspnea
- Not overtly in heart failure
- Influenza and flu negative
- Cardiac BNP of 5700
- Chest x-ray negative
Permanent atrial fibrillation
- continue metoprolol
- continue Eliquis
Essential hypertension
- continue lisinopril,
- stop hydrochlorothiazide, concern for association with gout
Hyperlipidemia
- continue statin
Chronic back pain
- continue Tylenol
Anxiety/depression
Type 2 diabetes
- continue metformin
- insulin sliding scale
- A1c 7.0%
DVT ppx: Eliquis
Code: DNR/DNI
Anticipated Discharge: Within 24 hours
Subjective/Interval History
-
Date of Service: April 01, 2024
reports R thumb improving, L foot improving
Objective Data
-
Labs:
Laboratory Results
04/01/24
07:09
WBC 26.4 H
Hgb 13.8
Hct 39.2
Plt Count 405 H D
Sodium 136
Potassium 3.5
Chloride 93 L
Carbon Dioxide 29
BUN 53 H
Creatinine 1.2
Glucose 160 H
Calcium 8.4
Vital Signs:
Vital Signs
Temp Pulse Resp BP Pulse Ox
97.3 F 123 20 136/93 96
04/01/24 15:20 04/01/24 15:20 04/01/24 15:20 04/01/24 15:20 04/01/24 15:20
I&O
03/31/24 04/01/24 04/02/24
06:59 06:59 06:59
Intake Total 240 / 240 720 / 720
Output Total 250 / 250 650 / 650
Balance -10 / -10 70 / 70
Physical Exam
-
General: No Apparent Distress
HEENT: Normocephalic and Atraumatic
Respiratory: Negative Wheezes
Cardiac: Regular Rhythm and S1/S2
GI: Soft
Genito-urinary: No Costovertebral Tender
Musculoskeletal: Other (R thumb gout, improving. LLE gout improving)
Neuro: AO x 3
Hematologic / Lymphatic: No Lymphadenopathy
Psych: Calm
Data Reviewed
-
Total Time Spent with Patient (in minutes): 42
Labs: Labs Reviewed by me
[2024-04-01 16:08] VITALS: BP 142/96; PULSE 110; O2SAT 94
[2024-04-01] MEDS: NOVOLOG FLEXPEN-LOW RESISTANCE SC (16:14)
[2024-04-01 16:40] LABS: Glucose - Point of Care 160 mg/dl (70-99)
[2024-04-01] MEDS: CRESTOR 20 MG PO (17:47)
[2024-04-01 21:43] LABS: Glucose - Point of Care 186 mg/dl (70-99)
[2024-04-01 23:44] VITALS: BP 160/89
[2024-04-02] MEDS: TYLENOL 1000 MG PO ×2 (02:51→07:46)
[2024-04-02 07:07] VITALS: BP 156/86
[2024-04-02 07:29] LABS: Glucose - Point of Care 155 mg/dl (70-99)
[2024-04-02] MEDS: NOVOLOG FLEXPEN-LOW RESISTANCE 1 UNITS SC (07:46)
[2024-04-02] MEDS: ZESTRIL 10 MG PO (07:47)
[2024-04-02] MEDS: GLUCOPHAGE 500 MG PO (07:47)
[2024-04-02] MEDS: ELIQUIS 5 MG PO (07:47)
[2024-04-02] MEDS: LOPRESSOR 25 MG PO (07:47)
[2024-04-02] MEDS: COLCHICINE 0.6 MG PO (07:48)
--- NOTE | 2024-04-02 09:56 | VNURNOTE ---
Home Health Liaison met with patient and sons at bedside to discuss [facility] nurse/therapy, visits, schedule and homebound status. Patient is agreeable and understands that visits at home will be 2-3 x per week to assess and teach medical management.
He is familiar with [facility] services.
[facility] brochure provided with contact information. Patient is aware that [facility] will contact them for start of care in 1-2 days after discharge from .
[facility] referral updated in [facility].
--- NOTE | 2024-04-02 10:04 | W.PN.HOSP.TC ---
Today's Communication/Plan
-
dc to home/VN
Assessment / Plan
Assessment / Plan
Assessment:
LLE foot gout
R MCP joint of thumb gout
- both acute flares
- continue Colchicine daily x 7 days and PCP f/u
- no concern per ID for infectious etiology requiring Abx. Abx stopped. DVT study was negative.
Steroid induced leukocytosis
- no concern per ID for infectious etiology requiring Abx. Abx stopped.
Chronic dyspnea
- Not overtly in heart failure
- Influenza and flu negative
- Cardiac BNP of 5700
- Chest x-ray negative
Permanent atrial fibrillation
- continue metoprolol
- continue Eliquis
Essential hypertension
- continue lisinopril,
- stop hydrochlorothiazide, concern for association with gout
Hyperlipidemia
- continue statin
Chronic back pain
- continue Tylenol
Anxiety/depression
Type 2 diabetes
- continue metformin
- insulin sliding scale
- A1c 7.0%
DVT ppx: Eliquis
Code: DNR/DNI
More than 30 minutes spent in discharge including
Final examination of the patient
Summarizing hospital stay
Instructions for continuing care to all relevant caregivers
Preparation of discharge records, prescriptions, and referral forms
Total time spent (in minutes): 41
Anticipated Discharge: Today
Subjective/Interval History
-
Date of Service: April 02, 2024
denies any new complaints
Objective Data
-
Vital Signs:
Vital Signs
Temp Pulse Resp BP Pulse Ox
97.8 F 112 18 156/86 95
04/02/24 07:07 04/02/24 07:07 04/02/24 07:07 04/02/24 07:47 04/02/24 07:07
I&O
04/01/24 04/02/24 04/03/24
06:59 06:59 06:59
Intake Total 720 / 720 540 / 540
Output Total 650 / 650 1165 / 1165
Balance 70 / 70 -625 / -625
Physical Exam
-
General: No Apparent Distress
HEENT: Normocephalic and Atraumatic
Respiratory: Negative Wheezes
Cardiac: Regular Rhythm and S1/S2
GI: Soft and Nontender
Genito-urinary: No Costovertebral Tender
Neuro: AO x 3
Hematologic / Lymphatic: No Lymphadenopathy
Psych: Calm
Data Reviewed
-
Total Time Spent with Patient (in minutes): 42
Labs: Labs Reviewed by me
--- NOTE | 2024-04-02 10:06 | W.DS.TRANS ---
DC Summary - Clinical Transplant Coordinator
-
Discharge Instructions:
Discharge Diagnosis/Procedures gout flares R thumb, LLE foot
Diet Regular
Activity As tolerated
Instructions:
Stand-Alone Forms:
Changes to Home Medications: Yes
Discharge Medications:
DC Medications w/original date entered in [employer]
apixaban 5 mg tablet (Eliquis) 5 mg PO BID Blood Clot Prevention/Tx 08/21/23
metformin 500 mg tablet 500 mg PO BID Diabetes 08/21/23
omega 4-dfg-duy-fish oil 1,000 mg (120 mg-180 mg) capsule (Fish Oil) 1 cap PO DAILY Supplement 08/21/23
rosuvastatin 20 mg tablet 20 mg PO QPM High Cholesterol 08/21/23
metoprolol tartrate 25 mg tablet 25 mg PO BID #60 tabs 08/25/23
acetaminophen 500 mg tablet (Tylenol Extra Strength) 1,000 mg PO TIDPRN PRN mild pain 03/30/24
lisinopril 10 mg tablet 10 mg PO DAILY Blood Pressure 03/30/24
colchicine 0.6 mg tablet 0.6 mg PO DAILY #7 tabs 04/01/24
Home Medication Changes
stop HCTZ
Pending Results: No
Total time spent discharging patient (in min): 41
--- NOTE | 2024-04-02 10:16 | CM ---
Chart reviewed and [facility] has been cleared for discharge home today with [facility].
Plan; Home with [facility].
[2024-04-02 12:04] LABS: Glucose - Point of Care 203 mg/dl (70-99)
[2024-04-02 12:20] VITALS: BP 148/78
== END 2024-04-02 13:15 | disposition home health service (06) | DRG 554 ==
LOC: 4 WEST ACU 08:12
PROVIDERS: Internal Medicine; Physician Assistant; ADMITTING PHYSICIAN Hospitalist; ATTENDING PHYSICIAN Internal Medicine; EMERGENCY PHYSICIAN Emergency Medicine; FAMILY PHYSICIAN Student in an Organized Health Care Education/Training Program; OTHER PHYSICIAN Internal Medicine Infectious Disease
DX: M1A.0720 Idiopathic chronic gout, left ankle and foot, without tophus (tophi) (principal); L03.116 Cellulitis of left lower limb; I48.21 Permanent atrial fibrillation; I50.30 Unspecified diastolic (congestive) heart failure; Z79.01 Long term (current) use of anticoagulants; I11.0 Hypertensive heart disease with heart failure; E78.5 Hyperlipidemia, unspecified; G89.29 Other chronic pain; E11.9 Type 2 diabetes mellitus without complications; F32.A Depression, unspecified; F41.9 Anxiety disorder, unspecified; Z66 Do not resuscitate; M10.9 Gout, unspecified; M19.90 Unspecified osteoarthritis, unspecified site; Z11.52 Encounter for screening for COVID-19
CPT/HCPCS: 71046; 73630; 80048; 80053; 81003; 81015; 82962; 83036; 83880; 84484; 84550; 85025; 85652; 87086; 87502; 87811; 93005; 93971; 96361; 96374; 97163; 99285

== ENCOUNTER 2024-04-08 09:59 | Inpatient (IN) | payer OTHER, SELFPAY ==
[2024-04-08] VITALS (8 sets, daily range): BP systolic 104–143; BP diastolic 57–89
--- NOTE | 2024-04-08 05:56 | ED.GENMED ---
History of Present Illness
<Maribel Bartlett MD, Resident - Last Filed: 04/08/24 22:54>
General
Chief Complaint: Back Pain
Time Seen by Provider: 04/08/24 05:22
History of Present Illness
History of Present Illness:
89-year-old male with past medical history of A-fib on Eliquis, diabetes, hypertension, hyperlipidemia and chronic back pain presenting to the ED with chronic back pain. Patient gets intraspinal injection for his pain and is due for his fourth
injection next week. Patient was seen here about 1 week ago for gout flares (right MCP and left MTP) and was treated with steroid and colchicine. Patient family notes he was driving and living independently until 2 weeks but has not been his usual
self recently, has had low energy, decreased appetite and trouble sleeping due to pain. Patient notes worsening of bilateral lower back pain for the past 3 days, with radiation to anterior left thigh. Denies urinary incontinence, fever, vomiting,
chest pain, abdominal pain, URI. Family also notes urinary retention for the past few days.
Past History
<Maribel Bartlett MD, Resident - Last Filed: 04/08/24 22:54>
Past History
ED Past Medical History: Arrthythmia (Atrial fibrillation) and HTN
ED Past Surgical History: None
Social History
Tobacco: Non-smoker
Alcohol: None
Personal:
Living: with family
Employment: Retired
Review of Systems
<Maribel Bartlett MD, Resident - Last Filed: 04/08/24 22:54>
Review of Systems
Constitutional: Reports fatigue and sleep disturbance
EENT: Reports no symptoms
Respiratory: Reports no symptoms
Cardiac: Reports no symptoms
ABD/GI: Reports no symptoms
: Reports difficulty voiding
Musculoskeletal: Reports edema
Skin: Reports no symptoms
Neurological: Reports no symptoms
Endocrine: Reports no symptoms
Hematologic/Lymphatic: Reports no symptoms
Psychiatric: Reports no symptoms
Phy Exam
<Maribel Bartlett MD, Resident - Last Filed: 04/08/24 22:54>
Physical Exam
Physical Exam:
GENERAL: Alert, awake, in no apparent distress.
EYE: Pupils equal and reactive.
NECK: Supple, no significant adenopathy. No midline tenderness.
ENT: o/p clr, mmm.
CARDIAC: Regular rate.
LUNGS: Clear breath sounds bilaterally, no acute respiratory distress, no wheezes/rales/rhonchi
ABDOMEN: Soft, without focal tenderness, no r/g, no cvat.
NEUROLOGICAL: Alert and oriented, equally weak lower extremities due to pain.
SKIN: Warm and dry, skin intact.
MUSCULOSKELETAL: Bilateral lower extremity edema (left greater than right), well perfused. Pulses strong bilaterally.
PSYCH: Normal and appropriate interaction.
Course
<Maribel aBrtlett MD, Resident - Last Filed: 04/08/24 22:54>
Orders/Labs/Results
Orders:
Orders
04/08/24 06:39
Ondansetron Injectable [Zofran] 4 mg IV NOW STA
04/08/24 06:40
Electrocardiogram (*1) Urgent
Reason for Study: Fatigue / Weakness
EKG- Treatment ONCE
04/08/24 06:43
Ketorolac [Toradol] 30 mg IV NOW STA
04/08/24 07:17
COVID-19 Antigen Urgent
Source: Nasal Swab
Complete Blood Count/With Diff Urgent
Comprehensive Metabolic Panel Urgent
Magnesium Urgent
Troponin I Urgent
Urinalysis Reflex To Culture Urgent
Date Specimen was Collected: 04/08/24
Time Specimen was Collected: 07:00
Urine Microscopic Reflex Cult Urgent
Influenza A+B Rapid Molecular Urgent
MATTHIEU Source: Nasal Swab
Specimen Description:
04/08/24 07:58
Metoprolol [Lopressor] 5 mg IV NOW STA
04/08/24 08:07
CR Lumbar Spine 2 Or 3 Views Urgent
Reason For Exam: low back pain
04/08/24 08:44
Lower Ext Arterial & JUANJOSE US [US Periph Art LOWER Ext w JUANJOSE] Urgent
Comment:
Reason For Exam: back pain, weakness
04/08/24 09:21
Admit/Transfer Patient As Directed
Co-Sign Provider:
Level of Care: Inpatient admission
Assign to:: Telemetry
Physician / Group: Hospitalist
Diagnosis: Weakness
Reason for Telemetry: Medication for Arrhythmia
Date to Stop Telemetry: 04/10/24
Time to Stop Telemetry: 11:00
Reason for Hospitalization: .
Expected length of stay greater than two midnights?: Yes
ELOS- Estimated Length of Stay in days: 3
I certify the patient meets the requirements for IP care: Yes
PRN Pain Medication Management As Directed
May give lesser potent ordered pain med per pt: Yes
preference::
Protocol:: Medication orders for pain may be administered in a
manner that supports deferring to patient preference
when the pt is:
- Requesting an ordered lesser potent pain medication.
Least to most potent pain medications are defined
as: acetaminophen < NSAID < tramadol < opioids
(morphine, oxycodone, hydromorphone).
- Requesting a lesser dose of the same medication IF
ORDERED.
- Requesting a less intrusive route of administration
if both routes are prescribed by the provider (PO <
IV).
04/08/24 09:22
Code Status As Directed
Resuscitation Status: Do not resuscitate
Reached after discussion with pt or family/Healthcare POA: Yes
04/08/24 09:23
DNR Bracelet Application ONCE
04/08/24 Lunch
Regular
At Your Request: Limited, Winding Department Supervisor Required
04/08/24 11:35
Metoprolol [Lopressor] 5 mg IV Q4HPRN PRN
04/08/24 15:07
Allopurinol [Zyloprim] 100 mg PO DAILY
MethylPREDNISolone PF [Solu-Medrol Pf] 40 mg IV DAILY
04/08/24 15:07
Consult Vascular Surgery [Vascular Surgery Consult] Routine
Consulting Provider: Jeferson Huertas
Was physician already notified: Yes
Reason for consult: .
04/08/24 16:30
Metoclopramide [Reglan] 5 mg IV AC
04/08/24 18:00
Rosuvastatin Calcium [Crestor] 20 mg PO QPM
04/08/24 20:00
Apixaban [Eliquis] 5 mg PO BID
Metoprolol [Lopressor] 25 mg PO BID
04/09/24 06:00
Ot Eval And Treat IN AM
Pt Eval And Treat IN AM
Activity Level: Ambulate
04/10/24 11:00
DC Protocol for Telemetry ONCE
Abnormal Lab Results
04/08/24
07:17
WBC 15.6 H 10^3/uL
(4.8-10.8)
RBC 4.31 L 10^6/uL
(4.70-6.10)
Hgb 12.5 L g/dL
(13.0-18.0)
Hct 38.5 L %
(39.0-52.0)
MCHC 32.5 L g/dL
(33.0-37.0)
Plt Count 476 H 10^3/uL
(130-400)
Abs Immat Gran (auto) 0.2 H 10^3/uL
(0-0.05)
Absolute Neuts (auto) 13.7 H 10^3/uL
(1.4-6.5)
Absolute Lymphs (auto) 0.4 L 10^3/uL
(1.2-3.4)
Absolute Monos (auto) 1.2 H 10^3/uL
(0.1-0.6)
Immature Gran % 1.0 H %
(0-0.5)
Neutrophils % 88.2 H %
(42.2-75.2)
Lymphocytes % 2.7 L %
(20.5-51.1)
Chloride 96 L mmol/L
(98-107)
BUN 26 H mg/dl
(9-20)
Glucose 165 H mg/dl
(70-99)
Alkaline Phosphatase 235 H U/L
(38-126)
Albumin 3.3 L g/dl
(3.5-5.0)
Urine Ketones 1+ A
(Negative)
Leukocyte Esterase Rfl Trace A
(Negative)
Urine Bacteria (Reflex) Few A
(Negative)
Urine Albumin (Reflex) 1+ A
(Neg - Trace)
04/08/24 07:17
04/08/24 07:17
Vital Signs
Initial and Last Documented VS:
Initial Vital Signs
Temp Pulse Resp BP Pulse Ox
98.2 F 87 16 143/86 94
04/08/24 03:38 04/08/24 03:38 04/08/24 03:38 04/08/24 03:38 04/08/24 03:38
Last Documented Vital Signs
Temp Pulse Resp BP Pulse Ox
98.6 F 127 20 129/85 96
04/08/24 18:20 04/08/24 19:58 04/08/24 18:20 04/08/24 19:58 04/08/24 18:20
<Mazin Iyer, DO - Last Filed: 04/08/24 10:11>
Orders/Labs/Results
Orders:
Orders
04/08/24 06:39
Ondansetron Injectable [Zofran] 4 mg IV NOW STA
04/08/24 06:40
Electrocardiogram (*1) Urgent
Reason for Study: Fatigue / Weakness
EKG- Treatment ONCE
04/08/24 06:43
Ketorolac [Toradol] 30 mg IV NOW STA
04/08/24 07:17
COVID-19 Antigen Urgent
Source: Nasal Swab
Complete Blood Count/With Diff Urgent
Comprehensive Metabolic Panel Urgent
Magnesium Urgent
Troponin I Urgent
Urinalysis Reflex To Culture Urgent
Date Specimen was Collected: 04/08/24
Time Specimen was Collected: 07:00
Urine Microscopic Reflex Cult Urgent
Influenza A+B Rapid Molecular Urgent
MATTHIEU Source: Nasal Swab
Specimen Description:
04/08/24 07:58
Metoprolol [Lopressor] 5 mg IV NOW STA
04/08/24 08:07
CR Lumbar Spine 2 Or 3 Views Urgent
Reason For Exam: low back pain
04/08/24 08:44
Lower Ext Arterial & JUANJOSE US [US Periph Art LOWER Ext w JUANJOSE] Urgent
Comment:
Reason For Exam: back pain, weakness
04/08/24 09:21
Admit/Transfer Patient As Directed
Co-Sign Provider:
Level of Care: Inpatient admission
Assign to:: Telemetry
Physician / Group: Hospitalist
Diagnosis: Weakness
Reason for Telemetry: Medication for Arrhythmia
Date to Stop Telemetry: 04/10/24
Time to Stop Telemetry: 11:00
Reason for Hospitalization: .
Expected length of stay greater than two midnights?: Yes
ELOS- Estimated Length of Stay in days: 3
I certify the patient meets the requirements for IP care: Yes
PRN Pain Medication Management As Directed
May give lesser potent ordered pain med per pt: Yes
preference::
Protocol:: Medication orders for pain may be administered in a
manner that supports deferring to patient preference
when the pt is:
- Requesting an ordered lesser potent pain medication.
Least to most potent pain medications are defined
as: acetaminophen < NSAID < tramadol < opioids
(morphine, oxycodone, hydromorphone).
- Requesting a lesser dose of the same medication IF
ORDERED.
- Requesting a less intrusive route of administration
if both routes are prescribed by the provider (PO <
IV).
04/08/24 09:22
Code Status As Directed
Resuscitation Status: Do not resuscitate
Reached after discussion with pt or family/Healthcare POA: Yes
04/08/24 09:23
DNR Bracelet Application ONCE
04/08/24 Lunch
Regular
At Your Request: Limited, Winding Department Supervisor Required
04/08/24 11:35
Metoprolol [Lopressor] 5 mg IV Q4HPRN PRN
04/08/24 15:07
Allopurinol [Zyloprim] 100 mg PO DAILY
MethylPREDNISolone PF [Solu-Medrol Pf] 40 mg IV DAILY
04/08/24 15:07
Consult Vascular Surgery [Vascular Surgery Consult] Routine
Consulting Provider: Jeferson Huertas
Was physician already notified: Yes
Reason for consult: .
04/08/24 16:30
Metoclopramide [Reglan] 5 mg IV AC
04/08/24 18:00
Rosuvastatin Calcium [Crestor] 20 mg PO QPM
04/08/24 20:00
Apixaban [Eliquis] 5 mg PO BID
Metoprolol [Lopressor] 25 mg PO BID
04/09/24 06:00
Ot Eval And Treat IN AM
Pt Eval And Treat IN AM
Activity Level: Ambulate
04/10/24 11:00
DC Protocol for Telemetry ONCE
Abnormal Lab Results
04/08/24
07:17
WBC 15.6 H 10^3/uL
(4.8-10.8)
RBC 4.31 L 10^6/uL
(4.70-6.10)
Hgb 12.5 L g/dL
(13.0-18.0)
Hct 38.5 L %
(39.0-52.0)
MCHC 32.5 L g/dL
(33.0-37.0)
Plt Count 476 H 10^3/uL
(130-400)
Abs Immat Gran (auto) 0.2 H 10^3/uL
(0-0.05)
Absolute Neuts (auto) 13.7 H 10^3/uL
(1.4-6.5)
Absolute Lymphs (auto) 0.4 L 10^3/uL
(1.2-3.4)
Absolute Monos (auto) 1.2 H 10^3/uL
(0.1-0.6)
Immature Gran % 1.0 H %
(0-0.5)
Neutrophils % 88.2 H %
(42.2-75.2)
Lymphocytes % 2.7 L %
(20.5-51.1)
Chloride 96 L mmol/L
(98-107)
BUN 26 H mg/dl
(9-20)
Glucose 165 H mg/dl
(70-99)
Alkaline Phosphatase 235 H U/L
(38-126)
Albumin 3.3 L g/dl
(3.5-5.0)
Urine Ketones 1+ A
(Negative)
Leukocyte Esterase Rfl Trace A
(Negative)
Urine Bacteria (Reflex) Few A
(Negative)
Urine Albumin (Reflex) 1+ A
(Neg - Trace)
04/08/24 07:17
04/08/24 07:17
Vital Signs
Initial and Last Documented VS:
Initial Vital Signs
Temp Pulse Resp BP Pulse Ox
98.2 F 87 16 143/86 94
04/08/24 03:38 04/08/24 03:38 04/08/24 03:38 04/08/24 03:38 04/08/24 03:38
Last Documented Vital Signs
Temp Pulse Resp BP Pulse Ox
98.6 F 127 20 129/85 96
04/08/24 18:20 04/08/24 19:58 04/08/24 18:20 04/08/24 19:58 04/08/24 18:20
<Mazin Iyer, DO - Last Filed: 04/08/24 10:11>
MDM/Problems Addressed
Differential Diagnosis Includes:
Arterial occlusion, vertebral compression fracture
MDM/Problems Addressed:
89-year-old male with low back pain, likely vertebral compression fracture, but unknown age. Discussed with vascular surgery, who evaluated patient as well, and were able to locate dorsalis pedis pulses. Rapid atrial fibrillation with mild with IV
Lopressor admit to hospitalist for further evaluation
Chronic conditions affecting care: Arrhythmia
Acute Exacerbation and/or Progression of Chronic Illness: Arrhythmia
<Mazin Iyer, DO - Last Filed: 04/08/24 10:11>
*Radiology
Radiology exam reviewed: preliminary read by ED provider (Lumbar x-ray with L1 compression fracture of uncertain age)
*Pulse Oximetry
Patient hypoxic: no
*EKG
Interpreted by ED Provider?: Yes
EKG Intrepretation Date: 04/08/24
EKG Intrepretation Time: 06:58
Interpretation: abnormal
Comparison EKG: changes noted
Heart Rate: 121
Rate: tachycardiac
Rhythm: a-fib
[place]: normal axis
Interval: normal interval
QRS Pattern: normal QRS
Ischemia: non-specific ST changes
*Frog Catcher Interpretation
Rate: tachycardiac
Interpretation: abnormal
Heart Rate: 121
Rhythm: a-fib
*Critical Care Note
Total Time (30-74mins, 75-104mins- exclusive of procedures): 30
comment:
Critical care statement: A total of 30 minutes of critical care time was provided for this patient. This includes management of unstable vital signs, evaluation of the patient at bedside, reviewing the patient's pertinent medical records, discussion
with consultants, review of old EKGs and review of pertinent medical records. This time with separate from time utilized to perform the aforementioned documented procedures
<Mazin Iyer, - Last Filed: 04/08/24 10:11>
Patient Management
Social determinants of health affecting care: Living situation
Discussion with other providers: Hospitalist and Pipe Line Walker (Vascular surgeon, Dr. Huertas)
Escalation/DeEscalation of care consider admission/obs:
Admit indicated
ED Attending Note
<Maribel Bartlett MD, Resident - Last Filed: 04/08/24 22:54>
-
Portions of this chart may have been created with voice recognition software.� Occasional wrong word or��sound alike� substitutions may have occurred due to the inherent limitations of voice recognition software.
<Mazin Iyer DO - Last Filed: 04/08/24 10:11>
ED Attending Note
Patient seen and examined by attending physician: Yes
I performed a history and physical exam of patient and discussed management with resident, I reviewed resident's note and agree with documented findings and plan of care.: Yes
ED Attending Note:
I reviewed and agree with history and treatment plan by Maribel Verdugo MD. My exam revealed
Physical Exam
General: Elderly, afebrile
Neck: supple. no meningeal signs. normal posterior pharynx
Heart: s1/s2 irregular rhythm, no murmur. equal radial
pulses.
HEENT: Pupils equal round reactive to light, EOMI
Lungs: no acute respiratory distress. clear bilaterally
Abdomen: normal bowel sounds. not tender. no CVAT
Neuro: alert and oriented. no focal neurological deficits cranial nerves II through XII intact
Skin: no rash
Psychiatric: well kept. interactive and cooperative
Extremities: no edema. no calf tenderness. negative homans. good distal pulses
Discharge Plan
Departure
Patient Disposition: Admit
Date of Disposition: 04/08/24
Time of Disposition: 07:59
Admit to: IMU
Presentation/result/management discussed w/ accepting MD/DO: Hospitalist
Patient with high blood pressure during this ER visit?: Yes
Condition: Fair
Discharge Problem:
Atrial fibrillation with rapid ventricular response, Closed compression fracture of lumbar vertebra
Interventions
Interventions:
*Risk Screen - Suicide Last Done: 04/08/24 19:30
*General Assessment Last Done: 04/08/24 03:38
*Neglect/Abuse Screening Last Done: 04/08/24 05:55
ED- Fall Risk Assessment Last Done: 04/08/24 05:55
*ED COVID-19 Vaccine History Last Done: 04/08/24 19:30
*Nursing Disposition Last Done: 04/08/24 18:22
ED-Musculoskeletal Assessment Last Done: 04/08/24 05:55
Discharge Date and Time
Discharge Date/Time: 04/08/24 18:23
[2024-04-08] MEDS: TORADOL 30 MG IV (07:23)
[2024-04-08] MEDS: ZOFRAN 4 MG IV (07:23)
[2024-04-08 07:35] LABS: Urine Albumin 1+ (Neg - Trace); Urine Bilirubin Negative (Negative); Urine Character Clear (Clear); Urine Color Yellow; Urine Glucose Negative (Negative); Urine Ketone 1+ (Negative); Urine Leukocyte Trace (Negative); Urine Nitrite Negative (Negative); Urine Occult Blood Negative (Negative); Urine Urobilinogen Negative (Neg - 1+)
[2024-04-08 07:37] LABS: % Basophils 0.1 % (0-2); % Eosinophils 0.1 % (0-6); % Lymphocytes 2.7 % (20.5-51.1); % Monocytes 7.9 % (1.7-9.3); % Neutrophils 88.2 % (42.2-75.2); Absolute Immature Granulocytes 0.2 10^3/uL (0-0.05); Absolute Lymphocytes 0.4 10^3/uL (1.2-3.4); Absolute Monocytes 1.2 10^3/uL (0.1-0.6); Absolute Neutrophils 13.7 10^3/uL (1.4-6.5); Hematocrit 38.5 % (39.0-52.0); Hemoglobin 12.5 g/dL (13.0-18.0); Mean Corp Hgb Conc. 32.5 g/dL (33.0-37.0); Mean Corpuscular Volume 89.3 fL (80.0-94.0); Mean Platelet Volume 9.4 fL (7.4-10.4); Nucleated Red Blood Cells % 0 % (-); Platelet Count 476 10^3/uL (130-400); Red Blood Cell Count 4.31 10^6/uL (4.70-6.10); Red Cell Dist. Width 13.7 % (11.5-14.5); White Blood Cell Count 15.6 10^3/uL (4.8-10.8)
[2024-04-08 07:51] LABS: ALT (SGPT) 40 U/L (0-50); AST (SGOT) 37 U/L (17-59); Albumin 3.3 g/dl (3.5-5.0); Alkaline Phosphatase 235 U/L (38-126); Blood Urea Nitrogen 26 mg/dl (9-20); Calcium 8.7 mg/dl (8.4-10.2); Carbon Dioxide 28 mmol/L (22-30); Chloride 96 mmol/L (98-107); Glucose 165 mg/dl (70-99); Magnesium 1.6 mg/dl (1.6-2.3); Potassium 3.7 mmol/L (3.5-5.1); Sodium 137 mmol/L (135-145); Total Bilirubin 0.9 mg/dl (0.2-1.3); Total Protein 6.3 g/dl (6.3-8.2); eGFR > 60.00
[2024-04-08 07:53] LABS: Urine Squamous Cell 0-2 /LPF (Few)
[2024-04-08 07:54] LABS: Urine Hyaline Cast 0-2 /LPF (0-2); Urine Red Blood Cell None Seen /HPF (0-2)
[2024-04-08 07:55] LABS: Urine Bacteria Few (Negative)
[2024-04-08 07:56] LABS: COVID-19 Antigen Negative (Negative)
[2024-04-08 08:02] LABS: Troponin I < 0.012 ng/ml
[2024-04-08] MEDS: LOPRESSOR 5 MG IV ×3 (08:04→19:58)
--- NOTE | 2024-04-08 09:05 | CON.VAS ---
Addendum entered and electronically signed by Jeferson Huertas MD 04/08/24 13:33:
Seen and examined with TOMER Mcguire. Agree with findings as noted below. Patient presented as noted with generalized weakness/decreased p.o. intake/nausea and worsening lower back pain. He has history of gout that affected his left foot but even that
has been improving. He endorses no pain or symptoms in his right lower extremity. However in the emergency room was noted to have concern for diminished pulses in the right foot and therefore we were consulted. On exam he is awake and alert. He
is in no acute distress. Breathing is unlabored. Abdomen is soft. Lower extremity with 2+ femoral and popliteal pulses. Nonpalpable distally bilaterally. Feet are both warm. Right distal toes may be slightly cooler than the left side but still
pink with reasonable capillary refill. Doppler signals present as noted below. Noninvasive arterial imaging studies reviewed. Plan/likely some degree of chronic peripheral arterial disease with medial calcinosis (JUANJOSE not obtainable) and possible
small vessel disease with TBI of 0 (although may be not reliable as well). Regardless no evidence of acute ischemic symptoms, no rest pain/tissue loss. No indication for any urgent revascularization. Recommend management of his current ongoing
issues, and we can see him in the outpatient setting.
Original Note:
Consultation
Consultation Request
Date/Time Consultation Performed: 04/08/24 9040
Requesting Provider: Mazin Iyer MD
Performing Provider: Zandra Mcguire, WELDER FITTER APPRENTICE-C for Jeferson Huertas MD
Reason for Consultation: PAD, unable to obtain DP pulse in right foot
Medical History
-
Chief Complaint: Generalized weakness and poor p.o. intake
History of Present Illness:
This is an 89-year-old male with significant past medical history for atrial fibrillation, diabetes, hypertension, hyperlipidemia, chronic back pain, and recent diagnosis of gout who presents to [facility] with reports of worsening generalized
weakness, decreased p.o. intake, nausea, and worsening chronic lower back pain. Patient and 3 sons who are at bedside are contributing to HPI, and all parties agree starting roughly 10 days patient exhibited generalized fatigue/weakness, poor p.o.
intake, and worsening of his chronic back pain that has just continued to progress over the past 2 weeks. Of note patient was recently admitted to the hospital from 03/30/2024 to 04/02/2024 with left foot/lower extremity pain he was ultimately
diagnosed with gout and discharged after treatment. Vascular surgery has been consulted from the ED as reports of difficulty obtaining right foot DP Doppler signal. Patient denies any pain, decreased motor function, coolness to right foot, or
changes in sensation to right lower extremity. He notes prior to 10 days ago he was able to ambulate without difficulty and denies symptoms of claudication or rest pain. Denies prior history of vascular surgical interventions. Offers no
complaints of bilateral lower extremity pain, does endorse chronic back pain. He denies fever, chills, cough, abdominal pain, vomiting, and loose stools.
Past Medical History
Past Medical History: Arrhythmias (Atrial fibrillation), Asthma, GERD, HTN, NIDDM and Other (Hyperlipidemia)
Past Surgical History: Tonsilectomy
Social History
Tobacco: Former Smoker (Quit in )
Allergies / Home Medications
Allergy/AdvReac Type Severity Reaction Status Date / Time
diltiazem Allergy Severe Unknown Verified 03/30/24 12:05
sulfamethoxazole Allergy Severe Unknown Verified 03/30/24 12:05
Sulfa (Sulfonamide Allergy Unknown Verified 03/30/24 12:05
Antibiotics)
�Medication �Instructions �Recorded �Confirmed �Type
apixaban 5 mg tablet (Eliquis) 5 mg PO BID Blood Clot 08/21/23 04/08/24 History
Prevention/Tx
metformin 500 mg tablet 500 mg PO BID Diabetes 08/21/23 04/08/24 History
omega [id number]-zzu-fish oil 1,000 mg 1 cap PO DAILY Supplement 08/21/23 04/08/24 History
(120 mg-180 mg) capsule (Fish Oil)
rosuvastatin 20 mg tablet 20 mg PO QPM High Cholesterol 08/21/23 04/08/24 History
metoprolol tartrate 25 mg tablet 25 mg PO BID #60 tabs 08/25/23 04/08/24 Rx
lisinopril 10 mg tablet 10 mg PO DAILY Blood Pressure 03/30/24 04/08/24 History
colchicine 0.6 mg tablet 0.6 mg PO DAILY #7 tabs 04/01/24 04/08/24 Rx
acetaminophen 650 mg 1,300 mg PO Q8HPRN PRN mild pain 04/08/24 04/08/24 History
tablet,extended release (Tylenol
Arthritis Pain)
Review of Systems
-
History Source: Patient
Constitutional: Reports Fatigue and Other (Generalized weakness)
Respiratory: Reports Other (Does endorse dyspnea on exertion)
Cardiac: Reports No Symptoms
Vascular: Denies Leg Pain / Claudication, Numbness or Tingling
Abdomen/GI: Reports No Symptoms
: Reports No Symptoms
Musculoskeletal: Reports Other (Back pain)
Skin: Reports Other (Erythema at left foot present since diagnosis of gout)
Neurological: Reports Weakness (Generalized); Denies Numbness
Endocrine: Reports No Symptoms
Physical Exam
Vital Signs
Temp Pulse Resp BP Pulse Ox
98.2 F 117 16 125/76 94
04/08/24 07:29 04/08/24 08:04 04/08/24 08:08 04/08/24 08:04 04/08/24 08:04
Lab Results
04/08/24 07:17
04/08/24 07:17
Troponin I < 0.012 ng/ml 04/08/24 07:17
Physical Exam
General: No Apparent Distress
HEENT: Normocephalic, Anicteric and Atraumatic
Respiratory: Non Labored Respirations
Cardiac: Irregular Rhythm; Negative JVD
GI: Soft, Non Tender and Non Distended
Musculoskeletal: Edema (+1 edema at left lower extremity)
Skin: Other (Left lower extremity with edema and erythema present at left foot, additionally left foot is warm to touch, right foot is cooler in comparison to left but every refill within normal limits)
Neuro: Awake and Alert
Psych: Calm
Pulses: Bilateral Femoral: +2, Bilateral Dorsalis Pedis: Doppler and Bilateral Posterior Tibial: Doppler
Assessment / Plan
-
Assessment: 89-year-old male presenting to hospital with generalized weakness, acute on chronic back pain, and decreased p.o. intake over the past roughly 10 days
Plan:
Physical exam of Doppler distal pulses at bilateral lower extremities and HPI with no indication of coolness, pain, or decrease sensation at bilateral lower extremities does not support diagnosis of acute limb threatening ischemia, for completeness
we will obtain arterial ultrasound with JUANJOSE/TBI.
I performed this shared service with the attending. I evaluated the patient [id number] and have entered clinical documentation as shown in the encounter note. I performed the following component(s):�history and physical exam. Note that medical
decision making is not final until attested by vascular attending.
--- NOTE | 2024-04-08 09:26 | HPS.HSE ---
Family Physician
-
Family Physician: Simi Green PA-C
Chief Complaint
-
Weakness in last few days
History of Present Illness
89 years old male was brought in from home by his son. Patient was noticed to be weak and recent days. He started to have worsening back pain. Patient has a chronic back pain. No fever or chills. Patient reported loss of appetite. No nausea or
vomiting. No GI bleeding or diarrhea. He was noticed to have uncontrolled atrial fibrillation but patient denied chest pain or palpitation. No hypoxia on admission. Patient was recently in [facility] for acute gout was discharged on
colchicine treatment. His toe is feeling better with no acute pain. Patient uses a walker at home. Patient has caregiver at home and lives alone.
Medical History
Past Medical History
Past Medical History: Reports Other (atrial fibrillation on Eliquis, diabetes, hypertension, hyperlipidemia, chronic back pain))
Past Surgical History: Reports Other (No recent major surgery)
Social History
Tobacco: Non-smoker
Alcohol: Occasional
Drug: None
Personal:
Living: Alone
Employment: Retired
Family History
Family History: Not pertinent
Allergies / Home Medications
Allergies reflects when Allergies were last updated in [employer].
Home Medications with original date entered in [employer]
Allergy/Medication List:
Allergies
Allergy/AdvReac Type Severity Reaction Status Date / Time
diltiazem Allergy Severe Unknown Verified 03/30/24 12:05
sulfamethoxazole Allergy Severe Unknown Verified 03/30/24 12:05
Sulfa (Sulfonamide Allergy Unknown Verified 03/30/24 12:05
Antibiotics)
Home Medications
apixaban 5 mg tablet (Eliquis) 5 mg PO BID Blood Clot Prevention/Tx 08/21/23
metformin 500 mg tablet 500 mg PO BID Diabetes 08/21/23
omega 0-ewu-wod-fish oil 1,000 mg (120 mg-180 mg) capsule (Fish Oil) 1 cap PO DAILY Supplement 08/21/23
rosuvastatin 20 mg tablet 20 mg PO QPM High Cholesterol 08/21/23
metoprolol tartrate 25 mg tablet 25 mg PO BID #60 tabs 08/25/23
lisinopril 10 mg tablet 10 mg PO DAILY Blood Pressure 03/30/24
colchicine 0.6 mg tablet 0.6 mg PO DAILY #7 tabs 04/01/24
acetaminophen 650 mg tablet,extended release (Tylenol Arthritis Pain) 1,300 mg PO Q8HPRN PRN mild pain 04/08/24
Review of Systems
-
History Source: Patient
A 12 point ROS was completed and negative except as noted: Yes
Constitutional: Reports Fatigue; Denies Fever or Chills
EENT: Denies Sore Throat or Runny Nose
Respiratory: Denies Cough or Trouble Breathing
Cardiac: Denies Chest Pain or Palpitations
Abdomen/GI: Reports Anorexia; Denies Abdominal Pain, Nausea, Vomiting or Bloody Stools
: Reports Incontinence and Difficulty Voiding; Denies Dysuria
Musculoskeletal: Denies Muscle Pain or Muscle Stiffness
Skin: Denies Rash
Neurological: Reports Weakness; Denies Headache or Numbness
Endocrine: Denies Temp Intolerance
Hematologic/Lymphatic: Denies Bruising
Psych: Denies Panic Disorder
Physical Exam
Vital Signs
Vital Signs
Temp Pulse Resp BP Pulse Ox
99.4 F 117 16 125/76 94
04/08/24 09:06 04/08/24 08:04 04/08/24 08:08 04/08/24 08:04 04/08/24 08:04
Physical Exam
General: No Apparent Distress and Comfortable
HEENT: Moist mucous membranes and Atraumatic
Respiratory: Clear
Cardiac: S1/S2 and Irregular Rhythm
GI: Soft, Non Tender and Non Distended
Rectal: No Maroon Stools
Genito-urinary: Clear Urine and No costovertebral tender; No Bloody Urine
Musculoskeletal: No Clubbing, No Cyanosis and No Edema
Skin: Warm; No Jaundice
Neuro: AO x 3 and Nonfocal/grossly intact; No Slurred Speech or Tremors
Psych: Calm and Intact Judgment/Insight
Laboratory Results
-
04/08/24 07:17
04/08/24 07:17
Laboratory Results
Total Bilirubin 0.9 mg/dl (0.2-1.3) 04/08/24 07:17
AST 37 U/L (17-59) 04/08/24 07:17
ALT 40 U/L (0-50) 04/08/24 07:17
Alkaline Phosphatase 235 U/L (38-126) H 04/08/24 07:17
Troponin I < 0.012 ng/ml 04/08/24 07:17
Impression/Plan
-
# Recent episode of acute gout of left big toe
Currently on last day of colchicine.
Stop colchicine as it is probably causing anorexia and loss of appetite. Will start the patient on low-dose allopurinol and overlap with a dose of steroid.
# Steroid-induced leukocytosis, WBC coming down. No fevers.
# Ambulatory dysfunction. Consult PT/OT
# Acute on chronic back pain.
Lower back pain. Lumbar x-ray showed moderate compression deformity of L1 with multilevel degenerative joint disease.
Will continue with Tylenol [id number]. PT/OT. Patient gets epidural injection in outpatient setting
# History of permanent atrial fibrillation
Presented with rapid ventricular response
Last echo in December 2023 showed LVEF 59%, mild concentric LVH, mild AI, normal RV size and function.
Continue with oral Eliquis. Continue with oral beta-blockers and increase dose to adjust. Order as needed IV metoprolol
Monitor on telemetry.
Negative troponin. Patient denied chest pain or palpitations
Primary silk snapper Dr. Hernandez
# Patient was noted to have diminished peripheral pulses in the ER. Vascular surgery was consulted.
# Chronic dyspnea
History of mild asthma. No wheezes on exam. No hypoxia
History of COPD, not in exacerbation
-Not overtly in heart failure
#Essential hypertension
-Continue BB for now
# History of urinary incontinence
Hyperlipidemia
-Continue statin
Chronic back pain
-Continue Tylenol
Anxiety/depression
Type 2 diabetes
-Insulin sliding scale while on prednisone
Added Premeal insulin and long-acting. Hold metformin for now
-Insulin sliding scale
DNR/DNI, confirmed with POA son, Rohit.
DVT prophylaxis-Eliquis
Regular diet
Total time spent to see the patient on the floor, examine the patient, review data and lab results, discuss treatment plan with patient, ER doctor, nursing staff around 75 minutes.
[2024-04-08] MEDS: NOVOLOG FLEXPEN-MODERATE RESISTANCE SC ×2 (17:19→19:16)
[2024-04-08 17:21] LABS: Glucose - Point of Care 139 mg/dl (70-99)
[2024-04-08] MEDS: TYLENOL 1000 MG PO ×2 (17:22→21:44)
[2024-04-08] MEDS: SOLU-MEDROL PF 40 MG IV (17:22)
--- NOTE | 2024-04-08 18:15 | PTCARENOTE ---
Patient admitted to room 437-1. Sons at bedside. Patient oriented to unit and call rodney system. Telemetry monitoring initiated.
[2024-04-08] MEDS: LOPRESSOR 25 MG PO (19:18)
[2024-04-08] MEDS: REGLAN 5 MG IV (19:19)
[2024-04-08] MEDS: ELIQUIS 5 MG PO (19:20)
[2024-04-08] MEDS: CRESTOR 20 MG PO (19:20)
[2024-04-08] MEDS: ZYLOPRIM 100 MG PO (19:20)
[2024-04-08] MEDS: NovoLIN R Flexpen 5 UNITS SC (19:21)
--- NOTE | 2024-04-08 20:58 | PTCARENOTE ---
Patient recieved in room on unit at start of shift. Both sons in room with patient and assisted with admission. AAOX3. Pleasant and cooperative with care. Oriented to unit. Call rodney with in reach.
[2024-04-08 22:08] LABS: Glucose - Point of Care 268 mg/dl (70-99)
[2024-04-08] MEDS: ULTRAM 25 MG PO (23:19)
[2024-04-09] VITALS (8 sets, daily range): BP systolic 101–144; BP diastolic 65–85; PULSE 75–150; O2SAT 97–98
[2024-04-09 07:46] LABS: Glucose - Point of Care 231 mg/dl (70-99)
--- NOTE | 2024-04-09 08:15 | VNURNOTE ---
Chart reviewed. Patient is current [facility] and [facility]. Will continue to follow hospital course and DC plans.
[2024-04-09] MEDS: NOVOLOG FLEXPEN-MODERATE RESISTANCE 3 UNITS SC (08:57)
[2024-04-09] MEDS: NovoLIN R Flexpen 5 UNITS SC ×3 (08:57→16:59)
[2024-04-09] MEDS: REGLAN 5 MG IV ×2 (08:58→17:00)
[2024-04-09] MEDS: SOLU-MEDROL PF 20 MG IV (08:59)
[2024-04-09] MEDS: LOPRESSOR 50 MG PO ×2 (08:59→20:23)
[2024-04-09] MEDS: ELIQUIS 5 MG PO ×2 (08:59→20:25)
[2024-04-09] MEDS: TYLENOL 1000 MG PO ×3 (09:02→22:56)
[2024-04-09] MEDS: ZYLOPRIM 100 MG PO (09:02)
--- NOTE | 2024-04-09 09:21 | W.PN.HOSP.TC ---
Today's Communication/Plan
-
IV PPI
Reduce dose of steroid and Reglan
PT/OT
Assessment / Plan
Assessment / Plan
Physical Exam
General: No Apparent Distress and Comfortable
HEENT: Moist mucous membranes and Atraumatic
Respiratory: Clear
Cardiac: S1/S2 and Irregular Rhythm, no tachycardia.
GI: Soft, Non Tender and Non Distended
Rectal: No Maroon Stools
Genito-urinary: Clear Urine and No costovertebral tender; No Bloody Urine
Musculoskeletal: No Clubbing, No Cyanosis and No Edema
Skin: Warm; No Jaundice
Neuro: AO x 3 and Nonfocal/grossly intact; No Slurred Speech or Tremors
Psych: Calm and Intact Judgment/Insight
# Recent episode of acute gout of left big toe
Currently on last day of colchicine but he started to have anorexia and loss of appetite. Started the patient on low-dose allopurinol and overlap with a dose of steroid to avoid flare-up. Reduce steroid dose.
Reduce dose of Reglan to BID
# nausea, likely due to Colchicine
Trial of Reglan
Add Protonix.
# Steroid-induced leukocytosis, WBC coming down. No fevers.
# Ambulatory dysfunction. Consult PT/OT
# Acute on chronic back pain.
He feels much better. Lumbar x-ray showed moderate compression deformity of L1 with multilevel degenerative joint disease.
Will continue with Tylenol [id number]. PRN Tramadol. IV steroid. PT/OT ordered . Patient gets epidural injection in outpatient setting
# History of permanent atrial fibrillation
Presented with rapid ventricular response
Better controlled, increase dose of metoprolol and monitor for hypotension/ bradycardia.
Last echo in December 2023 showed LVEF 59%, mild concentric LVH, mild AI, normal RV size and function.
Continue with oral Eliquis. Continue with oral beta-blockers and increase dose to adjust. Order as needed IV metoprolol
Monitor on telemetry.
Negative troponin. Patient denied chest pain or palpitations
Primary adjunct physical education instructor Dr. Aparicio
# Patient was noted to have diminished peripheral pulses in the ER. Vascular surgery was consulted.
# Chronic dyspnea
History of mild asthma. No wheezes on exam. No hypoxia
History of COPD, not in exacerbation
-Not overtly in heart failure
#Essential hypertension
-Continue BB for now
# History of urinary incontinence
Hyperlipidemia
-Continue statin
Anxiety/depression
Type 2 diabetes
-Insulin sliding scale while on steroid
Added Premeal insulin and long-acting. Held metformin for now
-Insulin sliding scale
DNR/DNI, confirmed with POA son, Rohit.
DVT prophylaxis-Eliquis
Regular diet
Total time spent to see the patient on the floor, examine the patient, review data and lab results, discuss treatment plan with patient, nursing staff around 55 minutes.
Anticipated Discharge: 24 - 48 hours
Subjective/Interval History
-
Date of Service: April 09, 2024
No chest pain
No sob
No fevers
Objective Data
-
Vital Signs:
Vital Signs
Temp Pulse Resp BP Pulse Ox
98.6 F 96 18 121/85 96
04/09/24 07:34 04/09/24 07:34 04/09/24 07:34 04/09/24 07:34 04/09/24 07:34
I&O
04/08/24 04/09/24 04/10/24
06:59 06:59 06:59
Intake Total 480 / 480
Output Total 500 / 500
Balance -20 / -20
[2024-04-09] MEDS: NSS (PRESERVATIVE FREE) 10 ML IV (09:59)
[2024-04-09] MEDS: PROTONIX IV 40 MG IV (09:59)
[2024-04-09 11:50] LABS: Glucose - Point of Care 329 mg/dl (70-99)
[2024-04-09] MEDS: NOVOLOG FLEXPEN-MODERATE RESISTANCE 7 UNITS SC ×2 (12:27→16:59)
[2024-04-09] MEDS: ULTRAM 25 MG PO ×2 (15:38→22:52)
[2024-04-09 16:00] LABS: Glucose - Point of Care 338 mg/dl (70-99)
--- NOTE | 2024-04-09 16:17 | CM ---
executive kitchen manager reviewed patient's chart and met with patient and patient states that he lives alone in a multilevel home, with one step to enter, patient is independent with adl's and ambulation, patient drives, stair glide to 2nd floor. Patient is
current with [facility], patient to resume services with [facility].
PCP: Simi Green
Pharmacy: [facility]
Plan; Home with [facility].
[2024-04-09] MEDS: CRESTOR 20 MG PO (17:01)
[2024-04-09 21:20] LABS: Glucose - Point of Care 218 mg/dl (70-99)
[2024-04-10 03:35] VITALS: BP 133/82
[2024-04-10] MEDS: ULTRAM 25 MG PO ×2 (04:41→22:08)
[2024-04-10 07:16] VITALS: BP 136/88
[2024-04-10] MEDS: NovoLIN R Flexpen 5 UNITS SC ×3 (08:19→17:19)
[2024-04-10] MEDS: ELIQUIS 5 MG PO ×2 (08:21→20:04)
[2024-04-10] MEDS: NOVOLOG FLEXPEN-MODERATE RESISTANCE 1 UNITS SC ×2 (08:21→17:18)
[2024-04-10] MEDS: TYLENOL 1000 MG PO ×3 (08:21→22:09)
[2024-04-10] MEDS: LOPRESSOR 50 MG PO ×2 (08:21→20:05)
[2024-04-10] MEDS: ZYLOPRIM 100 MG PO (08:21)
[2024-04-10] MEDS: PROTONIX IV 40 MG IV (08:22)
[2024-04-10] MEDS: NSS (PRESERVATIVE FREE) 10 ML IV (08:22)
[2024-04-10] MEDS: SOLU-MEDROL PF IV (08:25)
[2024-04-10 08:44] LABS: Glucose - Point of Care 155 mg/dl (70-99)
[2024-04-10 08:58] LABS: Hematocrit 37.6 % (39.0-52.0); Hemoglobin 12.7 g/dL (13.0-18.0); Mean Corp Hgb Conc. 33.8 g/dL (33.0-37.0); Mean Corpuscular Hgb 30.1 pg (27.0-31.0); Mean Corpuscular Volume 89.1 fL (80.0-94.0); Mean Platelet Volume 9.7 fL (7.4-10.4); Platelet Count 571 10^3/uL (130-400); Red Blood Cell Count 4.22 10^6/uL (4.70-6.10); Red Cell Dist. Width 13.7 % (11.5-14.5); White Blood Cell Count 24.4 10^3/uL (4.8-10.8)
[2024-04-10 09:28] LABS: ALT (SGPT) 82 U/L (0-50); AST (SGOT) 70 U/L (17-59); Albumin 3.4 g/dl (3.5-5.0); Alkaline Phosphatase 248 U/L (38-126); Blood Urea Nitrogen 34 mg/dl (9-20); Calcium 8.7 mg/dl (8.4-10.2); Carbon Dioxide 30 mmol/L (22-30); Chloride 94 mmol/L (98-107); Estimated Creatinine Clearance 62 ml/min; Glucose 145 mg/dl (70-99); Magnesium 1.9 mg/dl (1.6-2.3); Potassium 4.4 mmol/L (3.5-5.1); Sodium 136 mmol/L (135-145); Total Bilirubin 0.6 mg/dl (0.2-1.3); Total Protein 6.5 g/dl (6.3-8.2); eGFR > 60.00
--- NOTE | 2024-04-10 09:42 | W.PN.HOSP.TC ---
Today's Communication/Plan
-
Family wants SNF
c/w Tylenol
Monitor glucose level
Assessment / Plan
Assessment / Plan
Physical Exam
General: No Apparent Distress and Comfortable
HEENT: Moist mucous membranes and Atraumatic
Respiratory: Clear
Cardiac: S1/S2 and Irregular Rhythm, no tachycardia.
GI: Soft, Non Tender and Non Distended
Rectal: No Maroon Stools
Genito-urinary: Clear Urine and No costovertebral tender; No Bloody Urine
Musculoskeletal: No Clubbing, No Cyanosis and No Edema
Skin: Warm; No Jaundice
Neuro: AO x 3 and Nonfocal/grossly intact; No Slurred Speech or Tremors
Psych: Calm and Intact Judgment/Insight
# Recent episode of acute gout of left big toe
Stopped colchicine ( finished course given to him )
Pt started to have anorexia and loss of appetite. Started the patient on low-dose allopurinol and overlap with a dose of steroid to avoid flare-up. Reduced steroid dose and stop.
s/p Reglan to BID
# Nausea, likely due to Colchicine
Seems to resolve
Trial of Reglan, PPI and no colchicine. Change Reglan to PRN
# Steroid-induced leukocytosis. No fevers.
# elevated liver enzymes, likely steroid induced. No abd pain
# Ambulatory dysfunction. Consulted PT/OT
# Acute on chronic back pain.
He feels back pain this morning. . Lumbar x-ray showed moderate compression deformity of L1 with multilevel degenerative joint disease.
c/w Tylenol [id number]. PRN Tramadol. IV steroid is done for short course. PT/OT ordered . Patient gets epidural injection in outpatient setting
# History of permanent atrial fibrillation
Presented with rapid ventricular response
Better controlled, increased dose of metoprolol and monitor for hypotension/ bradycardia.
Last echo in December 2023 showed LVEF 59%, mild concentric LVH, mild AI, normal RV size and function.
Continue with oral Eliquis. Continue with oral beta-blockers and increase dose to adjust. Order as needed IV metoprolol
Monitor on telemetry.
Ordered daily weight
Negative troponin. Patient denied chest pain or palpitations
Primary hospice executive director Dr. Aparicio
# Patient was noted to have diminished peripheral pulses in the ER. Vascular surgery was consulted.
# Chronic dyspnea
History of mild asthma. No wheezes on exam. No hypoxia
History of COPD, not in exacerbation
-Not overtly in heart failure
#Essential hypertension
-Continue BB for now
# History of urinary incontinence
Hyperlipidemia
-Continue statin
#Anxiety/depression
# Type 2 diabetes
Blood glucose is better with no steroid
-Insulin sliding scale while on steroid
Added Premeal insulin and long-acting. Held metformin for now
-Insulin sliding scale
DNR/DNI, confirmed with POA son, Rohit.
DVT prophylaxis-Eliquis
Regular diet
Total time spent to see the patient on the floor, examine the patient, review data and lab results, discuss treatment plan with patient, son, nursing staff around 55 minutes.
Anticipated Discharge: 24 - 48 hours
Subjective/Interval History
-
Date of Service: April 10, 2024
No chest pain
No sob
No fevers
Objective Data
-
Labs:
Laboratory Results
04/10/24
08:26
WBC 24.4 H
Hgb 12.7 L
Hct 37.6 L
Plt Count 571 H
Sodium 136
Potassium 4.4
Chloride 94 L
Carbon Dioxide 30
BUN 34 H
Creatinine 0.8
Glucose 145 H
Calcium 8.7
Total Bilirubin 0.6
AST 70 H
ALT 82 H
Alkaline Phosphatase 248 H
Vital Signs:
Vital Signs
Temp Pulse Resp BP Pulse Ox
97.5 F 93 16 136/88 96
04/10/24 07:16 04/10/24 07:16 04/10/24 07:16 04/10/24 07:16 04/10/24 07:16
I&O
04/09/24 04/10/24 04/11/24
06:59 06:59 06:59
Intake Total 480 / 480 1200 / 1200
Output Total 500 / 500 1220 / 1220
Balance -20 / -20 -20 / -20
[2024-04-10 11:00] VITALS: BP 114/63
--- NOTE | 2024-04-10 11:52 | W.PN.UPDATE ---
Update Note
Progress Note Update
tried to call Florian few times but no answer, left him VM with my number
Jose Alejandro the other son wanted me to talk to Florian only
[2024-04-10 12:02] LABS: Glucose - Point of Care 267 mg/dl (70-99)
[2024-04-10] MEDS: NOVOLOG FLEXPEN-MODERATE RESISTANCE 5 UNITS SC (13:17)
--- NOTE | 2024-04-10 14:11 | CM ---
CM following re: discharge planning.
Reviewed pt's chart, met with pt and spoke to pt's son Florian over the phone.
PT and OT evaluation noted - home PT recommended.
Per MD pt's family wants SNF.
CM spoke to pt's son Florian and he stated that he and his brother want to know regarding pt's medical/clinical situation first before making any decision regarding SNF oh home care. Pt's son Florian requested a meeting for tomorrow at 10:00 a.m. to
discuss pt's health situation. MD is aware.
D/C plan: most likely home with VN services and family support. PT and OT will re-evaluate.
CM will follow with discharge plan updates as hospitalization progresses
[2024-04-10 15:00] VITALS: BP 153/78
[2024-04-10 17:14] LABS: Glucose - Point of Care 184 mg/dl (70-99)
[2024-04-10] MEDS: CRESTOR 20 MG PO (17:18)
[2024-04-10 19:25] VITALS: BP 114/62
[2024-04-10 21:33] LABS: Glucose - Point of Care 217 mg/dl (70-99)
[2024-04-10 23:24] VITALS: BP 129/62
[2024-04-11] VITALS (7 sets, daily range): BP systolic 116–139; BP diastolic 63–90; PULSE 89; O2SAT 97
[2024-04-11] MEDS: ULTRAM 25 MG PO (00:30)
[2024-04-11 08:01] LABS: Hematocrit 38.4 % (39.0-52.0); Hemoglobin 12.4 g/dL (13.0-18.0); Mean Corp Hgb Conc. 32.3 g/dL (33.0-37.0); Mean Corpuscular Volume 89.9 fL (80.0-94.0); Mean Platelet Volume 9.4 fL (7.4-10.4); Platelet Count 576 10^3/uL (130-400); Red Blood Cell Count 4.27 10^6/uL (4.70-6.10); Red Cell Dist. Width 13.8 % (11.5-14.5); White Blood Cell Count 16.3 10^3/uL (4.8-10.8)
--- NOTE | 2024-04-11 08:56 | W.PN.HOSP.TC ---
Today's Communication/Plan
-
Consult ortho
Assessment / Plan
Assessment / Plan
Physical Exam
General: No Apparent Distress and Comfortable
HEENT: Moist mucous membranes and Atraumatic
Respiratory: Clear
Cardiac: S1/S2 and Irregular Rhythm, no tachycardia.
GI: Soft, Non Tender and Non Distended
Rectal: No Maroon Stools
Genito-urinary: Clear Urine and No costovertebral tender; No Bloody Urine
Musculoskeletal: No Clubbing, No Cyanosis and No Edema
Skin: Warm; No Jaundice
Neuro: AO x 3 and Nonfocal/grossly intact; No Slurred Speech or Tremors
Psych: Calm and Intact Judgment/Insight
# Recent episode of acute gout of left big toe
Stopped colchicine ( finished course given to him )
Pt started to have anorexia and loss of appetite. Started the patient on low-dose allopurinol and overlap with a dose of steroid to avoid flare-up. Reduced steroid dose and stop.
s/p Reglan to BID
# Nausea, likely due to Colchicine
Resolved.
Trial of Reglan, PPI and no colchicine. Change Reglan to PRN
# Steroid-induced leukocytosis. No fevers.
# elevated liver enzymes, likely steroid induced. No abd pain
# Ambulatory dysfunction. Consulted PT/OT
# Acute on chronic back pain.
Back pain is not improving, will consult ortho, d/w son Rohit.
Lumbar x-ray showed moderate compression deformity of L1 with multilevel degenerative joint disease.
c/w Tylenol [id number]. PRN Tramadol. IV steroid is done for short course. PT/OT ordered . Patient gets epidural injection in outpatient setting
# History of permanent atrial fibrillation
Presented with rapid ventricular response
Better controlled, increased dose of metoprolol and monitor for hypotension/ bradycardia.
Last echo in December 2023 showed LVEF 59%, mild concentric LVH, mild AI, normal RV size and function.
Continue with oral Eliquis. Continue with oral beta-blockers and increase dose to adjust. Order as needed IV metoprolol
Monitored on telemetry.
Ordered daily weight
Negative troponin. Patient denied chest pain or palpitations
Primary residential supervisor Dr. Aparicio
# Patient was noted to have diminished peripheral pulses in the ER. Vascular surgery was consulted.
# Chronic dyspnea
History of mild asthma. No wheezes on exam. No hypoxia
History of COPD, not in exacerbation
-Not overtly in heart failure
#Essential hypertension
-Continue BB for now
# History of urinary incontinence
Hyperlipidemia
-Continue statin
#Anxiety/depression
# Type 2 diabetes
Blood glucose is better with no steroid
-Insulin sliding scale while on steroid
Added Premeal insulin and long-acting. Held metformin for now
-Insulin sliding scale
DNR/DNI, confirmed with POA son, Rohit.
DVT prophylaxis-Eliquis
Regular diet
Total time spent to see the patient on the floor, examine the patient, review data and lab results, discuss treatment plan with patient, son, nursing staff around 55 minutes.
Anticipated Discharge: Within 24 hours
Subjective/Interval History
-
Date of Service: April 11, 2024
No chest pain
Back pain overnight with confusion
Objective Data
-
Labs:
Laboratory Results
04/11/24
07:35
WBC 16.3 H
Hgb 12.4 L
Hct 38.4 L
Plt Count 576 H
Sodium Pending
Potassium Pending
Chloride Pending
Carbon Dioxide Pending
BUN Pending
Creatinine Pending
Glucose Pending
Calcium Pending
Total Bilirubin Pending
AST Pending
ALT Pending
Alkaline Phosphatase Pending
Vital Signs:
Vital Signs
Temp Pulse Resp BP Pulse Ox
97.4 F 84 16 139/90 96
04/11/24 03:05 04/11/24 03:05 04/11/24 03:05 04/11/24 03:05 04/11/24 03:05
I&O
04/10/24 04/11/24 04/12/24
06:59 06:59 06:59
Intake Total 1200 / 1200 720 / 720
Output Total 1220 / 1220 1900 / 1900
Balance -20 / -20 -1180 / -1180
[2024-04-11 09:01] LABS: ALT (SGPT) 85 U/L (0-50); AST (SGOT) 57 U/L (17-59); Albumin 3.4 g/dl (3.5-5.0); Alkaline Phosphatase 234 U/L (38-126); Blood Urea Nitrogen 34 mg/dl (9-20); Calcium 8.9 mg/dl (8.4-10.2); Carbon Dioxide 30 mmol/L (22-30); Chloride 94 mmol/L (98-107); Estimated Creatinine Clearance 62 ml/min; Glucose 182 mg/dl (70-99); Potassium 4.7 mmol/L (3.5-5.1); Sodium 135 mmol/L (135-145); Total Bilirubin 0.7 mg/dl (0.2-1.3); Total Protein 6.4 g/dl (6.3-8.2); eGFR > 60.00
[2024-04-11] MEDS: REGLAN 5 MG IV (09:26)
[2024-04-11] MEDS: NOVOLOG FLEXPEN-MODERATE RESISTANCE 1 UNITS SC ×2 (09:28→12:41)
[2024-04-11] MEDS: NovoLIN R Flexpen 5 UNITS SC ×3 (09:28→17:12)
[2024-04-11] MEDS: TYLENOL 1000 MG PO ×3 (09:33→21:45)
[2024-04-11] MEDS: LOPRESSOR 50 MG PO ×2 (09:34→21:43)
[2024-04-11] MEDS: ZYLOPRIM 100 MG PO (09:34)
[2024-04-11] MEDS: PROTONIX IV 40 MG IV (09:34)
[2024-04-11] MEDS: NSS (PRESERVATIVE FREE) 10 ML IV (09:34)
[2024-04-11] MEDS: ELIQUIS 5 MG PO ×2 (09:34→21:43)
[2024-04-11 11:53] LABS: Glucose - Point of Care 163 mg/dl (70-99)
[2024-04-11 16:29] LABS: Glucose - Point of Care 263 mg/dl (70-99)
[2024-04-11] MEDS: NOVOLOG FLEXPEN-MODERATE RESISTANCE 5 UNITS SC (17:10)
[2024-04-11] MEDS: CRESTOR 20 MG PO (17:24)
[2024-04-11] MEDS: ULTRAM PO (19:55)
[2024-04-11 21:23] LABS: Glucose - Point of Care 193 mg/dl (70-99)
[2024-04-11] MEDS: MELATONIN 5 MG PO (21:44)
[2024-04-11] MEDS: REMERON 7.5 MG PO (21:49)
[2024-04-12] MEDS: TYLENOL 500 MG PO (01:09)
[2024-04-12] MEDS: LIDOCAINE 4% PATCH 1 PATCH TOPICAL (01:10)
[2024-04-12 03:13] VITALS: BP 167/90
[2024-04-12 07:00] VITALS: BP 131/84
[2024-04-12 09:14] LABS: Glucose - Point of Care 158 mg/dl (70-99)
[2024-04-12] MEDS: TYLENOL 1000 MG PO ×2 (09:24→21:02)
[2024-04-12] MEDS: ZYLOPRIM 100 MG PO (09:28)
[2024-04-12] MEDS: ELIQUIS 5 MG PO (09:28)
[2024-04-12] MEDS: LOPRESSOR 50 MG PO ×2 (09:29→21:01)
[2024-04-12] MEDS: NSS (PRESERVATIVE FREE) 10 ML IV (09:30)
[2024-04-12] MEDS: PROTONIX IV 40 MG IV (09:30)
[2024-04-12] MEDS: NOVOLOG FLEXPEN-MODERATE RESISTANCE 1 UNITS SC (09:31)
[2024-04-12] MEDS: NovoLIN R Flexpen 5 UNITS SC ×2 (09:32→14:02)
--- NOTE | 2024-04-12 10:57 | CM ---
Chart reviewed and per physical therapy notes from yesterday, patient is doing well with physical therapy and recommendation is to home, patient is still complaining about pain and patient is for possible epidural today.
Plan; Home with [facility] when stable.
[2024-04-12 11:52] VITALS: BP 108/59
[2024-04-12 12:03] LABS: Glucose - Point of Care 337 mg/dl (70-99)
--- NOTE | 2024-04-12 13:53 | W.PN.HOSP.TC ---
Today's Communication/Plan
-
Stop tramadol, start oxycodone 5 mg as needed
Hold Eliquis for 4 doses/48 hours
IR consult for TOÑO
PT eval when pain improved
Assessment / Plan
Assessment / Plan
#Acute on chronic back pain
#Closed compression fracture of lumbar vertebrae
-Lumbar x-ray showed compression deformity of L1 with multilevel degenerative disease
-Follows in the outpatient setting for epidural steroid injections
-Acute worsening of back pain has limited his ability to work with PT here
-Son states he did not react well with the tramadol, became 'loopy'
-Holding Eliquis for 48 hours in preparation of TOÑO with IR
-Start oxycodone 5 mg as needed for moderate to severe pain
-Continue with fyisy-pgn-eofcs Tylenol
-PT/OT when pain controlled
#Gout flare
-Completed course of colchicine here
-Status post course of steroids
-Now on low-dose allopurinol
-Improved
#Elevated LFTs
-Unclear cause, only mildly elevated near 2X upper normal limit
-Will continue to monitor LFTs here
-Consider holding statin if worsening
#Permanent AF
-Nonvalvular, high [id number]; home medications include beta-leighton and Eliquis
-No known history of electrophysiologic interventions
-Presented in RVR, heart rate now WNL
#Hypertension
-Home medication includes beta-leighton; no first-line agent
-No known history of hypertensive systemic disease
-Blood pressure currently elevated in the context of pain
-Will add on hydralazine as needed
#Dyslipidemia
-No known ASCVD history, remains on home statin therapy
#T2DM
-Home medications include metformin 500 mg twice daily
-Metformin held on arrival, started on mealtime insulin with ISS
-S/p steroid course, glucose remains elevated at times
-Will continue with current regimen and monitor ISS requirements
-BG goal 100-200, avoid hypoglycemia
#Moderate aortic stenosis
-TTE from 12/2023 with Peak/mean gradients 39/21 mmHg, SHARATH 2 cm
-Does have murmur consistent with aortic stenosis on exam
-Will need follow-up after discharge
CODE STATUS: DNR/DNI, confirmed with POA son, Rohit.
DVT prophylaxis: Eliquis
Regular diet
Anticipated Discharge: > 48 hours
Subjective/Interval History
-
Date of Service: April 12, 2024
Seen and examined at the bedside. No acute events reported overnight. AFVSS this morning
Son was at the bedside and updated. Patient has ongoing severe back pain that is limited his ability to work with PT. Significant discomfort at time of my evaluation.
Denies any acute complaints. States pain in foot from gout is much improved and really not issue at this time
Objective Data
-
Vital Signs:
Vital Signs
Temp Pulse Resp BP Pulse Ox
97.7 F 99 18 108/59 97
04/12/24 11:52 04/12/24 11:52 04/12/24 11:52 04/12/24 11:52 04/12/24 11:52
I&O
04/11/24 04/12/24 04/13/24
06:59 06:59 06:59
Intake Total 720 / 720 720 / 720
Output Total 1900 / 1900 350 / 350
Balance -1180 / -1180 370 / 370
Review of Systems
-
History Source: Patient
All other systems: Reviewed and negative
Physical Exam
-
General: Well Developed, Well Nourished and Pain
HEENT: Normocephalic, Atraumatic, Moist Mucous Membranes, Anicteric and PERRLA
Respiratory: Clear to Auscultation and Non Labored Respirations; Negative Wheezes, Rales or Rhonchi
Cardiac: S1/S2, Irregular Rhythm, Murmur (3/6 GINA) and Tachycardic; Negative Rub or Gallop
GI: Soft, Nontender, Nondistended and Normal Bowel Sounds
Musculoskeletal: No Clubbing, No Cyanosis and No Edema
Skin: Warm and Dry; Negative Rash
Neuro: AO x 3, Nonfocal/Grossly Intact and Other (Limited assessment secondary to pain)
Data Reviewed
-
Medical Tests (Nuc Med, Echo etc): Discussed with Physician (Interventional radiology)
Labs: Labs Reviewed by me, Discussed with Patient and Discussed with Family
[2024-04-12] MEDS: NOVOLOG FLEXPEN-MODERATE RESISTANCE 7 UNITS SC (14:00)
[2024-04-12] MEDS: ROXICODONE 5 MG PO ×2 (14:03→21:01)
[2024-04-12 15:00] VITALS: BP 136/73
[2024-04-12 16:52] LABS: Glucose - Point of Care 211 mg/dl (70-99)
[2024-04-12] MEDS: CRESTOR 20 MG PO (18:37)
[2024-04-12] MEDS: NOVOLOG FLEXPEN-MODERATE RESISTANCE SC (18:39)
[2024-04-12] MEDS: NovoLIN R Flexpen SC (18:39)
[2024-04-12] MEDS: TYLENOL PO (18:40)
[2024-04-12 19:51] VITALS: BP 141/86
[2024-04-12] MEDS: MELATONIN 5 MG PO (21:00)
[2024-04-12 21:06] LABS: Glucose - Point of Care 124 mg/dl (70-99)
[2024-04-12] MEDS: REMERON 7.5 MG PO (21:07)
[2024-04-12 23:23] VITALS: BP 139/76
[2024-04-13] VITALS (7 sets, daily range): BP systolic 100–154; BP diastolic 59–89
[2024-04-13] MEDS: ROXICODONE 5 MG PO ×3 (02:45→22:47)
[2024-04-13 07:41] LABS: % Basophils 0.1 % (0-2); % Immature Granulocytes 0.8 % (0-0.5); % Lymphocytes 2.5 % (20.5-51.1); % Monocytes 5.8 % (1.7-9.3); % Neutrophils 90.8 % (42.2-75.2); Absolute Immature Granulocytes 0.2 10^3/uL (0-0.05); Absolute Lymphocytes 0.5 10^3/uL (1.2-3.4); Absolute Monocytes 1.1 10^3/uL (0.1-0.6); Absolute Neutrophils 17.3 10^3/uL (1.4-6.5); Hematocrit 39.9 % (39.0-52.0); Hemoglobin 13.2 g/dL (13.0-18.0); Mean Corp Hgb Conc. 33.1 g/dL (33.0-37.0); Mean Corpuscular Hgb 29.3 pg (27.0-31.0); Mean Corpuscular Volume 88.5 fL (80.0-94.0); Mean Platelet Volume 9.7 fL (7.4-10.4); Nucleated Red Blood Cells % 0 % (-); Platelet Count 544 10^3/uL (130-400); Red Blood Cell Count 4.51 10^6/uL (4.70-6.10)
[2024-04-13 08:00] LABS: Blood Urea Nitrogen 26 mg/dl (9-20); Calcium 9.1 mg/dl (8.4-10.2); Carbon Dioxide 28 mmol/L (22-30); Chloride 96 mmol/L (98-107); Estimated Creatinine Clearance 62 ml/min; Glucose 175 mg/dl (70-99); Potassium 4.6 mmol/L (3.5-5.1); Sodium 137 mmol/L (135-145); eGFR > 60.00
[2024-04-13 08:41] LABS: Glucose - Point of Care 211 mg/dl (70-99)
--- NOTE | 2024-04-13 09:18 | W.PN.HOSP.TC ---
Today's Communication/Plan
-
Await ortho input and to d/w son ( family request)
Plan for EP injection on Monday or Monday, holding Eliquis
Give SQ Heparin while off Eliquis
Compression stockings to both legs ( edema) , dose of Lasix.
c/w night time Remeron, melatonin
Assessment / Plan
Assessment / Plan
Physical Exam
General: No Apparent Distress and Comfortable
HEENT: Moist mucous membranes and Atraumatic
Respiratory: Clear
Cardiac: S1/S2 and Irregular Rhythm, no tachycardia.
GI: Soft, Non Tender and Non Distended
Rectal: No Maroon Stools
Genito-urinary: Clear Urine and No costovertebral tender; No Bloody Urine
Musculoskeletal: No Clubbing, No Cyanosis, ++ edema in both lower legs
Skin: Warm; No Jaundice
Neuro: AO to self and surroundings, No Slurred Speech or Tremors
Psych: Calm and Intact Judgment/Insight
#Acute on chronic back pain
#Closed compression fracture of lumbar vertebrae
-Lumbar x-ray showed compression deformity of L1 with multilevel degenerative disease
-Follows in the outpatient setting for epidural steroid injections ( Dr Appiah)
-Acute worsening of back pain has limited his ability to work with PT here
- Tramadol made him lethargic, trial of oxycodone.
-Holding Eliquis for 48 hours in preparation of TOÑO with IR
-Started oxycodone 5 mg as needed for moderate to severe pain
-Continue with [id number]-viagi Tylenol
- d/w IR, plan to EP injection on Monday or Monday after holding Eliquis for two days, last dose was 12/13 AM time.
_ family asked for ortho input, reached out [facility] with consult to service
-PT/OT when pain controlled
# Edema in both legs, c/w dependent edema, will do compression stockings, and dose of Lasix.
#Gout flare
-Completed course of colchicine here
-Status post course of steroids
-Now on low-dose allopurinol
-Improved
# Anorexia, probably due to worsening pain
Trial of Remeron with melatonin to help with sleep also
c/w PPI
#Elevated LFTs
likely due to steroid
No abdominal pain, monitor
#Permanent AF
-Nonvalvular, high [id number]; home medications include beta-leighton and Eliquis
-No known history of electrophysiologic interventions
-Presented in RVR, heart rate now WNL
#Primary Hypertension
-Home medication includes beta-leighton; no first-line agent
-No known history of hypertensive systemic disease
-Blood pressure currently elevated in the context of pain
-Will add on hydralazine as needed
#Dyslipidemia
-No known ASCVD history, remains on home statin therapy
#T2DM
-Home medications include metformin 500 mg twice daily
-Metformin held on arrival, started on mealtime insulin with ISS
-S/p steroid course, glucose remains elevated at times
-Will continue with current regimen and monitor ISS requirements
-BG goal 100-200, avoid hypoglycemia
#Moderate aortic stenosis
-TTE from 12/2023 with Peak/mean gradients 39/21 mmHg, SHARATH 2 cm
-Does have murmur consistent with aortic stenosis on exam
-Will need follow-up after discharge
CODE STATUS: DNR/DNI, confirmed with POA sonRohit.
DVT prophylaxis: holding Eliquis, will do SQ heparin
Regular diet
Total time spent to see the patient on the floor, examine the patient, review data and lab results, discuss treatment plan with patient, son, nursing staff around 55 minutes.
Anticipated Discharge: > 48 hours
Subjective/Interval History
-
Date of Service: April 13, 2024
Reports back pain, mostly on left flank area
Objective Data
-
Labs:
Laboratory Results
04/13/24
07:09
WBC 19.0 H
Hgb 13.2
Hct 39.9
Plt Count 544 H
Sodium 137
Potassium 4.6
Chloride 96 L
Carbon Dioxide 28
BUN 26 H
Creatinine 0.8
Glucose 175 H
Calcium 9.1
Vital Signs:
Vital Signs
Temp Pulse Resp BP Pulse Ox
97.9 F 104 18 154/89 98
04/13/24 04:00 04/13/24 04:00 04/13/24 04:00 04/13/24 04:00 04/13/24 04:00
I&O
04/12/24 04/13/24 04/14/24
06:59 06:59 06:59
Intake Total 720 / 720 1200 / 1200
Output Total 350 / 350 300 / 300
Balance 370 / 370 900 / 900
[2024-04-13] MEDS: NOVOLOG FLEXPEN-MODERATE RESISTANCE 3 UNITS SC ×2 (09:25→13:54)
[2024-04-13] MEDS: NovoLIN R Flexpen 5 UNITS SC ×3 (09:25→17:33)
[2024-04-13] MEDS: TYLENOL 1000 MG PO ×3 (09:26→21:22)
[2024-04-13] MEDS: LOPRESSOR 50 MG PO ×2 (09:26→21:22)
[2024-04-13] MEDS: PROTONIX 40 MG PO (09:29)
[2024-04-13] MEDS: ZYLOPRIM 100 MG PO (09:29)
--- NOTE | 2024-04-13 10:16 | W.PN.UPDATE ---
Update Note
Progress Note Update
Full orthopedic consult to be dictated: Son Florian present at bedside
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
Plan: Patient is well-known to the office for degenerative disc disease and lumbar radiculopathy into his left leg. He has had 1 epidural shot several weeks ago and is currently scheduled to have second epidural shot April 16, 2024 with
[facility]. Unfortunately he continues with his radicular symptoms and recently had a gout flareup recently prompting admission to . His son Florian relays that it has been very difficult for him to ambulate and be in his home. They believe that he
really needs placement. Spoke to hospitalist ,Dr. Dominguez, who relays that he is currently scheduled with IR to receive epidural shot injection in the near future. Hopefully he sees improvement with this shot and can find placement until he can get
stronger and be safe in his home. If IR cannot do TOÑO patient can keep his appointment with Dr. Andre. Orthopedics to sign off for now.
[2024-04-13] MEDS: LASIX 40 MG PO (12:27)
[2024-04-13 13:00] LABS: Glucose - Point of Care 224 mg/dl (70-99)
[2024-04-13 17:05] LABS: Glucose - Point of Care 330 mg/dl (70-99)
[2024-04-13] MEDS: NOVOLOG FLEXPEN-MODERATE RESISTANCE 7 UNITS SC (17:31)
[2024-04-13] MEDS: CRESTOR 20 MG PO (17:31)
[2024-04-13 20:50] LABS: Glucose - Point of Care 163 mg/dl (70-99)
[2024-04-13] MEDS: HEPARIN 5000 UNITS SC (21:20)
[2024-04-13] MEDS: MELATONIN 5 MG PO (21:22)
[2024-04-13] MEDS: REMERON 7.5 MG PO (21:23)
[2024-04-14 03:00] VITALS: BP 134/85
[2024-04-14 05:48] VITALS: BMI 22.4
[2024-04-14 07:04] VITALS: BP 162/97
[2024-04-14 08:52] LABS: Glucose - Point of Care 166 mg/dl (70-99)
[2024-04-14] MEDS: ZYLOPRIM 100 MG PO (08:54)
[2024-04-14] MEDS: LOPRESSOR 50 MG PO ×2 (08:54→20:49)
[2024-04-14] MEDS: PROTONIX 40 MG PO (08:54)
[2024-04-14] MEDS: TYLENOL 1000 MG PO ×2 (08:55→21:25)
[2024-04-14] MEDS: HEPARIN 5000 UNITS SC ×2 (08:55→20:48)
[2024-04-14] MEDS: NOVOLOG FLEXPEN-MODERATE RESISTANCE 1 UNITS SC ×3 (09:08→17:33)
[2024-04-14] MEDS: NovoLIN R Flexpen 5 UNITS SC ×3 (09:08→17:32)
[2024-04-14] MEDS: ROXICODONE 5 MG PO (09:22)
--- NOTE | 2024-04-14 09:47 | W.PN.HOSP.TC ---
Today's Communication/Plan
-
Work up for right wrist pain, likely Gout
c/w Tylenol, PRN Oxy ( use as minimal)
Encourage to use heating pad to back
Add MiraLAX to avoid constipation
Will follow
Assessment / Plan
Assessment / Plan
Physical Exam
General: No Apparent Distress and Comfortable
HEENT: Moist mucous membranes and Atraumatic
Respiratory: Clear
Cardiac: S1/S2 and Irregular Rhythm, no tachycardia.
GI: Soft, Non Tender and Non Distended
Rectal: No Maroon Stools
Genito-urinary: Clear Urine and No costovertebral tender; No Bloody Urine
Musculoskeletal: No Clubbing, No Cyanosis, ++ edema in both lower legs
Skin: Warm; No Jaundice
Neuro: AO to self and surroundings, No Slurred Speech or Tremors
Psych: Calm and Intact Judgment/Insight
#Acute on chronic back pain
#Closed compression fracture of lumbar vertebrae
-Lumbar x-ray showed compression deformity of L1 with multilevel degenerative disease
-Follows in the outpatient setting for epidural steroid injections ( Dr Appiah)
-Acute worsening of back pain has limited his ability to work with PT here,
c/w heating pad
- Tramadol made him lethargic, trial of oxycodone.
-Holding Eliquis for 48 hours in preparation of TOÑO with IR
-Started oxycodone 5 mg as needed for moderate to severe pain
-Continue with uvvzq-hbc-[id number] Tylenol
- d/w IR, plan to EP injection on Monday or Monday after holding Eliquis for two days, last dose was 12/13 AM time.
_ family asked for ortho input, ortho agreed to plan, last injected level: Left L4-L5 ) per ortho)
-PT/OT when pain controlled
-Add MiraLAX to avoid constipation
# Edema in both legs, c/w dependent edema, c/w compression stockings, and s/p dose of Lasix.
#Gout flare
04/14, Seems to have developed right wrist pain with swelling/ red and tenderness , 2nd metacarpal bone base , likely gout, probably precipitated by Lasix dose yesterday. Will check CRP&ESR, do x ray, likely give steroid
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
-Now on low-dose allopurinol, will titrate up
# Anorexia, improving
Trial of Remeron with melatonin to help with sleep also
c/w PPI
#Elevated LFTs
likely due to steroid
No abdominal pain, monitor
#Permanent AF
-Nonvalvular, high [id number]; home medications include beta-leighton and Eliquis
-No known history of electrophysiologic interventions
-Presented in RVR, heart rate now WNL
#Primary Hypertension
-Home medication includes beta-leighton; no first-line agent
-No known history of hypertensive systemic disease
-Blood pressure currently elevated in the context of pain
-Will add on hydralazine as needed
#Dyslipidemia
-No known ASCVD history, remains on home statin therapy
#T2DM
-Home medications include metformin 500 mg twice daily
-Metformin held on arrival, started on mealtime insulin with ISS
-S/p steroid course, glucose remains elevated at times
-Will continue with current regimen and monitor ISS requirements
-BG goal 100-200, avoid hypoglycemia
#Moderate aortic stenosis
-TTE from 12/2023 with Peak/mean gradients 39/21 mmHg, SHARATH 2 cm
-Does have murmur consistent with aortic stenosis on exam
-Will need follow-up after discharge
CODE STATUS: DNR/DNI, confirmed with POA son, Rohit.
DVT prophylaxis: holding Eliquis, ordered SQ heparin
Regular diet
Total time spent to see the patient on the floor, examine the patient, review data and lab results, discuss treatment plan with patient, sons at bed side, nursing staff around 55 minutes.
Anticipated Discharge: > 48 hours
Subjective/Interval History
-
Date of Service: April 14, 2024
Still back pain, mostly this morning
Slept well
No fevers later started to complain of right wrist pain
Objective Data
-
Vital Signs:
Vital Signs
Temp Pulse Resp BP Pulse Ox
97.7 F 100 18 162/97 96
04/14/24 07:04 04/14/24 07:04 04/14/24 07:04 04/14/24 07:04 04/14/24 07:04
I&O
04/13/24 04/14/24 04/15/24
06:59 06:59 06:59
Intake Total 1200 / 1200 1200 / 1200
Output Total 300 / 300 610 / 610 100 / 100
Balance 900 / 900 590 / 590 -100 / -100
--- NOTE | 2024-04-14 09:48 | CM ---
Chart reviewed and case planner continues to follow with patient progress notes and spoke with patient and patient's son and daughter in law, Sahron [phone] this morning, physical therapy are recommending skilled and skilled options discussed
with patient and family and they are agreeable to [facility] skilled, referral sent to [facility] skilled.
Plan; Skilled placement at [facility], patient is for possible epidural prior to rehab placement.
[2024-04-14 10:59] LABS: Erythrocyte Sed Rate 51 mm/hour (0-20)
[2024-04-14 11:59] LABS: C-Reactive Protein > 270.00 mg/L (0.0-10.00)
[2024-04-14 12:41] VITALS: BP 137/76
[2024-04-14 12:57] LABS: Glucose - Point of Care 165 mg/dl (70-99)
[2024-04-14] MEDS: SOLU-MEDROL PF 40 MG IV (14:06)
[2024-04-14] MEDS: TYLENOL PO (15:27)
[2024-04-14 15:49] VITALS: BP 143/82
[2024-04-14 17:31] LABS: Glucose - Point of Care 184 mg/dl (70-99)
[2024-04-14] MEDS: CRESTOR 20 MG PO (17:32)
[2024-04-14 19:47] VITALS: BP 124/72
[2024-04-14 20:50] LABS: Glucose - Point of Care 539 mg/dl (70-99)
[2024-04-14] MEDS: MIRALAX 17 GRAMS PO (21:24)
[2024-04-14] MEDS: MELATONIN 5 MG PO (21:25)
[2024-04-14] MEDS: DULCOLAX 10 MG PO (21:25)
[2024-04-14] MEDS: REMERON 7.5 MG PO (21:25)
[2024-04-14 21:33] LABS: Glucose 577 mg/dl (70-99)
[2024-04-14] MEDS: NOVOLOG FLEXPEN 10 UNITS SC (22:03)
[2024-04-14 23:12] LABS: Glucose - Point of Care 424 mg/dl (70-99)
[2024-04-14 23:12] LABS: Glucose - Point of Care 477 mg/dl (70-99)
[2024-04-14 23:29] VITALS: BP 120/74
[2024-04-14 23:53] LABS: Glucose - Point of Care 394 mg/dl (70-99)
[2024-04-15] VITALS (8 sets, daily range): BP systolic 69–152; BP diastolic 69–85; BMI 22.3
[2024-04-15 03:43] LABS: Glucose - Point of Care 463 mg/dl (70-99)
[2024-04-15 04:41] LABS: Glucose 285 mg/dl (70-99)
[2024-04-15 07:41] LABS: Hematocrit 39.2 % (39.0-52.0); Hemoglobin 12.9 g/dL (13.0-18.0); Mean Corp Hgb Conc. 32.9 g/dL (33.0-37.0); Mean Corpuscular Hgb 28.9 pg (27.0-31.0); Mean Corpuscular Volume 87.9 fL (80.0-94.0); Mean Platelet Volume 9.6 fL (7.4-10.4); Platelet Count 542 10^3/uL (130-400); Red Blood Cell Count 4.46 10^6/uL (4.70-6.10); Red Cell Dist. Width 14.1 % (11.5-14.5); White Blood Cell Count 21.3 10^3/uL (4.8-10.8)
[2024-04-15 07:53] LABS: Glucose - Point of Care 286 mg/dl (70-99)
[2024-04-15 08:18] LABS: ALT (SGPT) 81 U/L (0-50); AST (SGOT) 60 U/L (17-59); Albumin 3.4 g/dl (3.5-5.0); Alkaline Phosphatase 253 U/L (38-126); Blood Urea Nitrogen 32 mg/dl (9-20); Calcium 9.2 mg/dl (8.4-10.2); Carbon Dioxide 27 mmol/L (22-30); Chloride 96 mmol/L (98-107); Estimated Creatinine Clearance 69 ml/min; Glucose 259 mg/dl (70-99); Potassium 4.6 mmol/L (3.5-5.1); Sodium 136 mmol/L (135-145); Total Bilirubin 0.7 mg/dl (0.2-1.3); Total Protein 6.4 g/dl (6.3-8.2); eGFR > 60.00
[2024-04-15 08:23] LABS: INR 1.32; PT 16.7 Sec (11.4-14.6)
[2024-04-15] MEDS: PROTONIX 40 MG PO (08:46)
[2024-04-15] MEDS: HEPARIN 5000 UNITS SC ×2 (08:46→20:07)
[2024-04-15] MEDS: TYLENOL 1000 MG PO ×3 (08:46→21:30)
[2024-04-15] MEDS: ZYLOPRIM 200 MG PO (08:46)
[2024-04-15] MEDS: NovoLIN R Flexpen 5 UNITS SC ×3 (08:46→17:34)
[2024-04-15] MEDS: NOVOLOG FLEXPEN-MODERATE RESISTANCE 5 UNITS SC ×2 (08:47→13:29)
[2024-04-15] MEDS: LOPRESSOR 50 MG PO ×2 (08:51→20:07)
[2024-04-15] MEDS: ZESTRIL 10 MG PO (10:51)
[2024-04-15] MEDS: SOLU-MEDROL PF 20 MG IV (10:52)
[2024-04-15 13:14] LABS: Glucose - Point of Care 299 mg/dl (70-99)
--- NOTE | 2024-04-15 13:16 | W.PN.HOSP.TC ---
Today's Communication/Plan
-
check a1c
po steroids
recheck blood culture
monitor poc
s/p avis
pt/ot
Assessment / Plan
Assessment / Plan
Physical Exam
General: No Apparent Distress and Comfortable
HEENT: Moist mucous membranes and Atraumatic
Respiratory: Clear
Cardiac: S1/S2 and Irregular Rhythm, no tachycardia. +murmurr,
GI: Soft, Non Tender and Non Distended
Musculoskeletal: No Clubbing, No Cyanosis, ++ edema in both lower legs. R 1st MTP swollen
Skin: Warm; No Jaundice
Neuro: AO to self and surroundings, No Slurred Speech or Tremors
Psych: Calm and Intact Judgment/Insight
#Acute on chronic back pain
#Closed compression fracture of lumbar vertebrae
-Lumbar x-ray showed compression deformity of L1 with multilevel degenerative disease
-Follows in the outpatient setting for epidural steroid injections ( Dr Appiah)
-Acute worsening of back pain has limited his ability to work with PT here,
-c/w heating pad
- Tramadol made him lethargic, trial of oxycodone.
-Started oxycodone 5 mg as needed for moderate to severe pain
-Continue with [id number] Tylenol
-s/p AVIS on 04/14/24. will d/w with IRAD-plan to start to Eliquis on 04/16/24 AM.
-family asked for ortho input, ortho agreed to plan, last injected level: Left L4-L5 ) per ortho)
-PT/OT
-Add MiraLAX to avoid constipation
# Edema in both legs, c/w dependent edema, c/w compression stockings, and s/p dose of Lasix.
#Gout flare
04/14, Seems to have developed right wrist pain with swelling/ red and tenderness , 2nd metacarpal bone base , likely gout, probably precipitated by Lasix dose
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
Inflammatory markers elevated. X-rays negative for fracture
Status post IV steroids. Monitor for improvement. Can transition to p.o. steroids prednisone 40mg daily for now.
#Gram positive bacteremia 1/2 bottles
-?likely contaminant.
-afebrile.
-bump in wbc is due to steroids
-repeat culture to assess if contaminant or not.
# Anorexia, improving
Trial of Remeron with melatonin to help with sleep also
c/w PPI
#Elevated LFTs
likely due to steroid
No abdominal pain, monitor
#Permanent AF
-Nonvalvular, high [id number]; home medications include beta-leighton and Eliquis
-No known history of electrophysiologic interventions
-Presented in RVR, heart rate now WNL
#Primary Hypertension
-Home medication includes beta-leighton; no first-line agent
-No known history of hypertensive systemic disease
-Blood pressure currently elevated in the context of pain
-Will add on hydralazine as needed
#Dyslipidemia
-No known ASCVD history, remains on home statin therapy
#T2DM
-Home medications include metformin 500 mg twice daily
-Metformin restarted. started on mealtime insulin with ISS
-S/p steroid course, glucose remains elevated at times
-Will continue with current regimen and monitor ISS requirements
-Check a1c
#Moderate aortic stenosis
-TTE from 12/2023 with Peak/mean gradients 39/21 mmHg, SHARATH 2 cm
-Does have murmur consistent with aortic stenosis on exam
-Will need follow-up after discharge
CODE STATUS: DNR/DNI, confirmed with POA son, Rohit.
DVT prophylaxis: holding Eliquis, ordered SQ heparin
d/w with son at bedside in details.
Anticipated Discharge: > 48 hours
Subjective/Interval History
-
Date of Service: April 15, 2024
states of R hand swelling/pain
Objective Data
-
Labs:
Laboratory Results
04/15/24 04/15/24 04/15/24
04:17 06:56 07:59
WBC 21.3 H
Hgb 12.9 L
Hct 39.2
Plt Count 542 H
PT 16.7 H
INR 1.32
Sodium 136
Potassium 4.6
Chloride 96 L
Carbon Dioxide 27
BUN 32 H
Creatinine 0.7
Glucose 285 H 259 H
Calcium 9.2
Total Bilirubin 0.7
AST 60 H
ALT 81 H
Alkaline Phosphatase 253 H
Vital Signs:
Vital Signs
Temp Pulse Resp BP Pulse Ox
97.6 F 64 17 122/69 98
04/15/24 11:40 04/15/24 12:36 04/15/24 12:36 04/15/24 12:36 04/15/24 11:40
I&O
04/14/24 04/15/24 04/16/24
06:59 06:59 06:59
Intake Total 1200 / 1200 600 / 600
Output Total 610 / 610 400 / 400
Balance 590 / 590 200 / 200
Data Reviewed
-
Total Time Spent with Patient (in minutes): 55
[2024-04-15 15:35] LABS: Glycohemoglobin (HgbA1c) 7.9 % (4.0-5.6)
[2024-04-15 16:49] LABS: Glucose - Point of Care 238 mg/dl (70-99)
[2024-04-15] MEDS: NOVOLOG FLEXPEN-MODERATE RESISTANCE 3 UNITS SC (17:34)
[2024-04-15] MEDS: GLUCOPHAGE 500 MG PO (17:35)
[2024-04-15] MEDS: CRESTOR 20 MG PO (17:35)
[2024-04-15] MEDS: MIRALAX 17 GRAMS PO (21:21)
[2024-04-15 21:29] LABS: Glucose - Point of Care 336 mg/dl (70-99)
[2024-04-15] MEDS: DULCOLAX 10 MG PO (21:30)
[2024-04-15] MEDS: REMERON 7.5 MG PO (21:30)
[2024-04-15] MEDS: MELATONIN 5 MG PO (21:30)
[2024-04-15] MEDS: ROXICODONE 5 MG PO (23:28)
[2024-04-16] VITALS (7 sets, daily range): BP systolic 119–156; BP diastolic 70–91; BMI 22.1
[2024-04-16] MEDS: ROXICODONE 5 MG PO (06:22)
[2024-04-16 07:42] LABS: Glucose - Point of Care 275 mg/dl (70-99)
[2024-04-16] MEDS: LOPRESSOR 50 MG PO ×2 (08:15→19:59)
[2024-04-16] MEDS: DELTASONE 40 MG PO (08:15)
[2024-04-16] MEDS: TYLENOL 1000 MG PO ×3 (08:15→21:23)
[2024-04-16] MEDS: ZESTRIL 10 MG PO (08:15)
[2024-04-16] MEDS: GLUCOPHAGE 500 MG PO ×2 (08:15→17:37)
[2024-04-16] MEDS: ZYLOPRIM 200 MG PO (08:15)
[2024-04-16] MEDS: PROTONIX 40 MG PO (08:15)
[2024-04-16] MEDS: HEPARIN 5000 UNITS SC (08:17)
[2024-04-16] MEDS: NovoLIN R Flexpen 5 UNITS SC (08:18)
[2024-04-16] MEDS: NOVOLOG FLEXPEN-MODERATE RESISTANCE 5 UNITS SC ×2 (08:19→17:38)
--- NOTE | 2024-04-16 09:36 | PHA.VAN.IN ---
Assessment
- Assessment
Renal Function: Appears similar to baseline
AUC Dosing Plan
- Dosing Variables
Dosing Weight (kg): 66
Dosing CrCl (ml/min): 53
Vd coefficient (L/kg): 0.7
Patient with borderline CrCl for Q12H vs Q24H dosing; however, with elevated BUN, will start with Q24H dosing
- Empiric Dosing
Initial / Loading Dose: 1500mg - 04/16 11:08
Maintenance Regimen: Vanc 1000mg Q24H starting 04/17 0600
Estimated AUC (mcg*h/mL): 458
Estimated Peak (mcg*h/mL): 31.5
Estimated Trough (mcg/ml): 10.4
Estimated Half Life (H): 14.3
- Monitoring
No levels ordered at this time: consider levels in next few days
Pharmacokinetics Vancomycin I
- -
Patient Age: 89
Patient Sex: Male
Vancomycin Day #: 1
Indication: Bacteremia
Requesting Provider: Dr. Burr
Pertinent Antimicrobial Allergies:
sulfonamide antibiotics - throat closes; swelling
Height / Weight:
Height 5 ft 8 in
Actual Weight 65.816 kg
Pertinent Past Medical History: DM 2
- Vital Signs / Lab Results
Temp Pulse Resp BP Pulse Ox
98.4 F 130 20 156/91 95
04/16/24 07:36 04/16/24 07:36 04/16/24 07:36 04/16/24 07:36 04/16/24 07:36
Lab Results - Hematology
04/15/24
06:56
WBC 21.3 H
Lab Results - Chemistry
04/15/24
06:56
BUN 32 H
Creatinine 0.7
Estimated Creat Clear 69
Albumin 3.4 L
Microbiology Results
04/15/24 13:45 Blood Culture - Preliminary
Blood/Venous Positive culture in progress
Gram Stain - Preliminary
04/14/24 12:57 Blood Culture - Preliminary
Blood/Venous Positive culture in progress
Gram Stain - Preliminary
[2024-04-16 10:53] LABS: Hematocrit 34.2 % (39.0-52.0); Hemoglobin 11.6 g/dL (13.0-18.0); Mean Corp Hgb Conc. 33.9 g/dL (33.0-37.0); Mean Corpuscular Hgb 29.4 pg (27.0-31.0); Mean Corpuscular Volume 86.8 fL (80.0-94.0); Mean Platelet Volume 9.6 fL (7.4-10.4); Platelet Count 497 10^3/uL (130-400); Red Blood Cell Count 3.94 10^6/uL (4.70-6.10); Red Cell Dist. Width 13.9 % (11.5-14.5); White Blood Cell Count 23.2 10^3/uL (4.8-10.8)
[2024-04-16] MEDS: VANCOCIN 530 MG IV (11:08)
[2024-04-16 11:25] LABS: % Basophils 0.1 % (0-2); % Immature Granulocytes 0.9 % (0-0.5); % Lymphocytes 1.1 % (20.5-51.1); % Monocytes 3.6 % (1.7-9.3); % Neutrophils 94.3 % (42.2-75.2); Absolute Immature Granulocytes 0.2 10^3/uL (0-0.05); Absolute Lymphocytes 0.3 10^3/uL (1.2-3.4); Absolute Monocytes 0.8 10^3/uL (0.1-0.6); Absolute Neutrophils 21.9 10^3/uL (1.4-6.5); Nucleated Red Blood Cells % 0 % (-)
--- NOTE | 2024-04-16 11:28 | CM ---
Chart reviewed and plan is for skilled placement at [facility] when stable, director case management will reach out to patient's insurance for Auth for skilled placement. Update provided to patient's daughter in law, Sharon as requested by patient's family.
Plan: Skilled placement at [facility] when stable, per admissions at [facility] they have accepted patient pending Auth.
[2024-04-16 11:53] LABS: Blood Urea Nitrogen 38 mg/dl (9-20); Calcium 8.8 mg/dl (8.4-10.2); Carbon Dioxide 27 mmol/L (22-30); Chloride 95 mmol/L (98-107); Estimated Creatinine Clearance 53 ml/min; Glucose 268 mg/dl (70-99); Sodium 134 mmol/L (135-145); eGFR > 60.00
[2024-04-16 12:25] LABS: Glucose - Point of Care 329 mg/dl (70-99)
[2024-04-16] MEDS: NovoLIN R Flexpen 8 UNITS SC (13:06)
[2024-04-16] MEDS: NOVOLOG FLEXPEN-MODERATE RESISTANCE 7 UNITS SC (13:07)
--- NOTE | 2024-04-16 14:03 | W.PN.HOSP.TC ---
Addendum entered and electronically signed by Andi Burr MD 04/16/24 17:36:
dictation error-s/p TOÑO on 04/15/24 (NOT 04/14/24)
Original Note:
Today's Communication/Plan
-
Await for blood culture final results
ID evaluation
PT and OT
P.o. prednisone
Adjust insulin
DC melatonin/Remeron
Assessment / Plan
Assessment / Plan
Physical Exam
General: No Apparent Distress and Comfortable
HEENT: Moist mucous membranes and Atraumatic
Respiratory: Clear
Cardiac: S1/S2 and Irregular Rhythm, no tachycardia. +murmurr,
GI: Soft, Non Tender and Non Distended
Musculoskeletal: No Clubbing, No Cyanosis, ++ edema in both lower legs. R 1st MTP swollen/erythema-which has improved. Significant improvement R wrist motion. No lumbar step off or TTP.
Skin: Warm; No Jaundice
Neuro: AO to self and surroundings, No Slurred Speech or Tremors
Psych: Calm and Intact Judgment/Insight
#Acute on chronic back pain
#Closed compression fracture of lumbar vertebrae
-Lumbar x-ray showed compression deformity of L1 with multilevel degenerative disease
-Follows in the outpatient setting for epidural steroid injections ( Dr Appiah)
-Acute worsening of back pain has limited his ability to work with PT here,
-c/w heating pad
-Tramadol made him lethargic, trial of oxycodone.
-Started oxycodone. Dec dose and then decrease frequency the next 24 hours
-Continue with [id number] Tylenol
-s/p TOÑO on 04/14/24. will d/w with IRAD-plan to start to Eliquis today.
-family asked for ortho input, ortho agreed to plan, last injected level: Left L4-L5 ) per ortho)
-PT/OT
-Add MiraLAX to avoid constipation
# Edema in both legs, c/w dependent edema, c/w compression stockings, and s/p dose of Lasix.
#Gout flare
04/14, Seems to have developed right wrist pain with swelling/ red and tenderness , 2nd metacarpal bone base , likely gout, probably precipitated by Lasix dose
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
Inflammatory markers elevated. X-rays negative for fracture
Status post IV steroids. Monitor for improvement. Can transition to p.o. steroids prednisone 40mg daily for now. Seems to be significantly helping.
#Gram positive bacteremia with Diptheroids
-Repeat culture also found to be positive
-afebrile. Unclear if true infection vs. contaminant as with Diptheroids.
-bump in wbc could be due to steroids
-Await for susceptibility results. Will start patient on IV vancomycin in the interim.
-Check TTE
-Depending on the workup may need to consider further imaging.
-ID evaluation.
# Anorexia, improving
Family does not want patient to be continued on Remeron.
c/w PPI
# Toxic metabolic encephalopathy likely secondary to hospital-acquired delirium versus pain medication was recommended versus melatonin
DC remeron and melatonin
Continue to reorient
Decrease oxycodone
Family at bedside
Unclear if history of cognitive impairment
#Elevated LFTs
likely due to steroid
No abdominal pain, monitor
#Permanent AF
-Nonvalvular, high [id number]; home medications include beta-leighton and Eliquis
-No known history of electrophysiologic interventions
-Presented in RVR, heart rate now WNL
#Primary Hypertension
-Home medication includes beta-leighton; no first-line agent
-No known history of hypertensive systemic disease
-Blood pressure currently elevated in the context of pain
-Will add on hydralazine as needed
#Dyslipidemia
-No known ASCVD history, remains on home statin therapy
#T2DM
-Home medications include metformin 500 mg twice daily
-Metformin restarted. started on mealtime insulin with ISS. Dose increased to 11 units for now.
-S/p steroid course, glucose remains elevated at times
-Will continue with current regimen and monitor ISS requirements
-Check a1c at 7.9
#Moderate aortic stenosis
-TTE from 12/2023 with Peak/mean gradients 39/21 mmHg, SHARATH 2 cm
-Does have murmur consistent with aortic stenosis on exam
-Will need follow-up after discharge
CODE STATUS: DNR/DNI, confirmed with POA son, Rohit.
DVT prophylaxis: holding Eliquis, ordered SQ heparin
d/w with son (Pasquale) at bedside in details.
Anticipated Discharge: > 48 hours
Subjective/Interval History
-
Date of Service: April 16, 2024
States significant improvement in right wrist
Per son at bedside significant improvement in back pain and mobility with rest
Patient mildly confused per patient's son
Family encouraging patient to increase p.o. intake
Objective Data
-
Labs:
Laboratory Results
04/16/24
10:17
WBC 23.2 H
Hgb 11.6 L
Hct 34.2 L
Plt Count 497 H
Sodium 134 L
Potassium 5.0
Chloride 95 L
Carbon Dioxide 27
BUN 38 H
Creatinine 0.9
Glucose 268 H
Calcium 8.8
Vital Signs:
Vital Signs
Temp Pulse Resp BP Pulse Ox
98.9 F 94 18 119/70 94
04/16/24 11:35 04/16/24 11:35 04/16/24 11:35 04/16/24 11:35 04/16/24 11:35
I&O
1204/16/24 04/17/24
06:59 06:59 06:59
Intake Total 600 / 600 1440 / 1440
Output Total 400 / 400 700 / 700
Balance 200 / 200 740 / 740
Data Reviewed
-
Total Time Spent with Patient (in minutes): 58
--- NOTE | 2024-04-16 15:12 | CON.ID ---
Consultation
-
Date/Time Consultation Requested: 04/16/2020 [id number]
Date/Time Consultation Performed: 04/16/2024 1450
Requesting Provider: Dr. Burr
Performing Provider: Dr. Bermeo
Reason for Consultation: Bacteremia
Chief Complaint / Past History
Chief Complaint
Positive blood cultures
History of Present Illness
Kenneth Walker is an 89-year-old man being evaluated at the request of Dr. Burr in regards to bacteremia. History is obtained from chart review, along with patient interview.
The patient has a significant past medical history of atrial fibrillation (on Eliquis), along with diabetes and hypertension. He recently was admitted to [facility] in late March during which time he was treated for left lower extremity
gout. He was discharged to home on 04/02, but returned to the ER on 04/08 secondary to generalized weakness, decreased appetite and increasing low back discomfort. At the time of admission he had noted bilateral low back pain which has been
worsening over the prior 3 days, with radiation to his left thigh. No history of urinary incontinence, fevers or vomiting.
Hospital course thus far has been significant for ongoing back discomfort, and he recently underwent epidural steroid injection. Blood cultures were obtained on 04/14, which revealed diphtheroids. Repeat blood cultures were obtained the next day,
and those cultures are now positive for gram positive rods in both aerobic bottles. The patient has been started on empiric vancomycin. Infectious Diseases is now asked to comment upon further antibiotic therapy.
The patient reports chronic low back pain times years, although it has gotten worse in the past few weeks. He reports dental work approximately 2 weeks ago. No history of fevers or chills. No history of diarrheal illness.
Past History
Past Medical History: Other
Additional Past Medical History:
Essential hypertension
atrial fibrillation on Eliquis
hyperlipidemia
aortic valve insufficiency
thrombophilia
asthma
T2DM
CHF
COPD
Urinary incontinence
GERD
Additional Past Surgical History:
bilateral inguinal hernia
Allergy History:
diltiazem Allergy (Verified 04/08/24 15:39)
LIGHTHEADED, HEART RATE HAD 'PAUSES'
Sulfa (Sulfonamide Antibiotics) Allergy (Verified 03/30/24 12:05)
Unknown
sulfamethoxazole Allergy (Verified 04/08/24 15:39)
THROAT CLOSES SWELLING
Medications Reviewed: Yes
Current Antibiotics:
Vancomycin
Social History
Tobacco: Non-Smoker
Alcohol: Occasional
Drug: None
Personal:
Living: With Family
Employment: Retired
Family History
Family History: Not Pertinent
Review of Systems
Vital Signs
Temp Pulse Resp BP Pulse Ox
98.9 F 94 18 119/70 94
04/16/24 11:35 04/16/24 11:35 04/16/24 11:35 04/16/24 11:35 04/16/24 11:35
Physical Exam
Physical Exam
Constitutional: No Acute Distress, Comfortable and Non-toxic
Eyes: No Conjunctival Hemorrhage and Sclera Anicteric
Oral: No Thrush and No Ulcers
Cardiovascular: Irregular Rate, S1/S2 and Murmur (II/); Negative S3/S4
Pulmonary: Clear and Non Labored; Negative Wheezes or Rales
Gastrointestinal: Soft, Non Tender, Non Distended and Normal Bowel Sounds
Extremities: Edema
Skin: Negative Rash or Jaundice
Neurological: Awake, Alert and Oriented
Psychological: Calm
Lab / Diagnostic Study Results
04/16/24 10:17
04/16/24 10:17
Abs Immat Gran (auto) 0.2 10^3/uL (0-0.05) H 04/16/24 10:17
Absolute Neuts (auto) 21.9 10^3/uL (1.4-6.5) H 04/16/24 10:17
Absolute Lymphs (auto) 0.3 10^3/uL (1.2-3.4) L 04/16/24 10:17
Absolute Monos (auto) 0.8 10^3/uL (0.1-0.6) H 04/16/24 10:17
Absolute Basos (auto) 0.0 10^3/uL (0-0.2) 04/16/24 10:17
Immature Gran % 0.9 % (0-0.5) H 04/16/24 10:17
Neutrophils % 94.3 % (42.2-75.2) H 04/16/24 10:17
Lymphocytes % 1.1 % (20.5-51.1) L 04/16/24 10:17
Monocytes % 3.6 % (1.7-9.3) 04/16/24 10:17
Eosinophils % 0.0 % (0-6) 04/16/24 10:17
Basophils % 0.1 % (0-2) 04/16/24 10:17
ESR 51 mm/hour (0-20) H 04/14/24 10:25
PT 16.7 Sec (11.4-14.6) H 04/15/24 07:59
INR 1.32 04/15/24 07:59
C-Reactive Protein > 270.00 mg/L (0.0-10.00) H 04/14/24 10:25
Ur Squamous Epith Cells 0-2 /LPF (Few) 04/08/24 07:17
Microbiology Results
Micro:
04/14/24 12:57 Blood Culture - Preliminary
Blood/Venous Diptheroids
Gram Stain - Preliminary
04/16/24 09:35 Nasal Screen MRSA (PCR) - Final
Nose MRSA not detected - performed by PCR methodology.
04/15/24 14:09 Blood Culture - Preliminary
Blood/Venous Positive culture in progress
Gram Stain - Preliminary
04/15/24 13:45 Blood Culture - Preliminary
Blood/Venous Positive culture in progress
Gram Stain - Preliminary
04/08/24 07:17 Influenza Types A & B (ALISHA) - Final
Nasal Swab Negative for Influenza A & B, NAAT
Negative results must be combined with clinical observations
and patient history.
Nucleic Acid Amplification test (NAAT)performed on the
[employer] platform.
03/30/2024 peripheral vascular ultrasound No evidence of deep venous thrombosis of the left lower extremity.
03/30/2024: Foot x-ray: No acute osseous abnormality. Degenerative changes, most prominent about the left first metatarsophalangeal joint.
Assessment / Plan
Bactermeia with Gm positive RODS - multiple sets
Leukocytosis
Chronic back pain
- s/p recent steroid injection
Essential hypertension
atrial fibrillation on Eliquis
hyperlipidemia
aortic valve insufficiency
thrombophilia
asthma
T2DM
CHF
COPD
Urinary incontinence
GERD
Recommendations:
Continue with empiric vancomycin for the present.
Case discussed with Microbiology Lab; will send out isolate for further testing and susceptibilities.
Await echocardiogram.
Given low back pain, may also consider MRI of L-spine.
Monitor white count temperature curve.
Further recommendations as additional data is returned.
[2024-04-16 17:02] LABS: Glucose - Point of Care 250 mg/dl (70-99)
[2024-04-16] MEDS: CRESTOR 20 MG PO (17:37)
[2024-04-16] MEDS: NovoLIN R Flexpen 11 UNITS SC (17:38)
[2024-04-16] MEDS: ELIQUIS 5 MG PO (20:00)
[2024-04-16] MEDS: MIRALAX 17 GRAMS PO (21:23)
[2024-04-16] MEDS: DULCOLAX 10 MG PO (21:24)
[2024-04-16 21:35] LABS: Glucose - Point of Care 342 mg/dl (70-99)
[2024-04-17] VITALS (7 sets, daily range): BP systolic 126–162; BP diastolic 76–90; PULSE 78; O2SAT 96; BMI 22.4
[2024-04-17] MEDS: VANCOCIN 200 IV (05:36)
[2024-04-17 07:42] LABS: % Basophils 0.1 % (0-2); % Eosinophils 0.1 % (0-6); % Immature Granulocytes 0.8 % (0-0.5); % Lymphocytes 1.5 % (20.5-51.1); % Monocytes 4.2 % (1.7-9.3); % Neutrophils 93.3 % (42.2-75.2); Absolute Immature Granulocytes 0.2 10^3/uL (0-0.05); Absolute Lymphocytes 0.3 10^3/uL (1.2-3.4); Absolute Monocytes 0.8 10^3/uL (0.1-0.6); Absolute Neutrophils 17.5 10^3/uL (1.4-6.5); Hematocrit 30.7 % (39.0-52.0); Hemoglobin 10.6 g/dL (13.0-18.0); Mean Corp Hgb Conc. 34.5 g/dL (33.0-37.0); Mean Corpuscular Hgb 29.7 pg (27.0-31.0); Mean Platelet Volume 9.7 fL (7.4-10.4); Nucleated Red Blood Cells % 0 % (-); Platelet Count 406 10^3/uL (130-400); Red Blood Cell Count 3.57 10^6/uL (4.70-6.10); Red Cell Dist. Width 13.9 % (11.5-14.5); White Blood Cell Count 18.7 10^3/uL (4.8-10.8)
[2024-04-17 08:14] LABS: Blood Urea Nitrogen 35 mg/dl (9-20); Calcium 8.3 mg/dl (8.4-10.2); Carbon Dioxide 27 mmol/L (22-30); Chloride 95 mmol/L (98-107); Estimated Creatinine Clearance 54 ml/min; Glucose 333 mg/dl (70-99); Potassium 4.6 mmol/L (3.5-5.1); Sodium 131 mmol/L (135-145); eGFR > 60.00
[2024-04-17 08:15] LABS: Glucose - Point of Care 295 mg/dl (70-99)
[2024-04-17] MEDS: TYLENOL 1000 MG PO ×3 (08:37→21:03)
[2024-04-17] MEDS: ZESTRIL 10 MG PO (08:37)
[2024-04-17] MEDS: PROTONIX 40 MG PO (08:37)
[2024-04-17] MEDS: GLUCOPHAGE 500 MG PO ×2 (08:37→18:07)
[2024-04-17] MEDS: ELIQUIS 5 MG PO ×2 (08:37→20:59)
[2024-04-17] MEDS: DELTASONE 40 MG PO (08:38)
[2024-04-17] MEDS: LOPRESSOR 50 MG PO ×2 (08:38→20:59)
[2024-04-17] MEDS: ZYLOPRIM 200 MG PO (08:38)
[2024-04-17] MEDS: NovoLIN R Flexpen 11 UNITS SC (10:10)
[2024-04-17] MEDS: NOVOLOG FLEXPEN-MODERATE RESISTANCE 5 UNITS SC (10:10)
[2024-04-17 11:14] LABS: Glucose - Point of Care 329 mg/dl (70-99)
--- NOTE | 2024-04-17 12:06 | W.PN.HOSP.TC ---
Today's Communication/Plan
-
Increase insulin
PT/OT
Stop oxy
IV Vancomycin
repeat culture
ID recs
Assessment / Plan
Assessment / Plan
Physical Exam
General: No Apparent Distress and Comfortable
HEENT: Moist mucous membranes and Atraumatic
Respiratory: Clear
Cardiac: S1/S2 and Irregular Rhythm, no tachycardia. +murmurr,
GI: Soft, Non Tender and Non Distended
Musculoskeletal: No Clubbing, No Cyanosis, ++ edema in both lower legs. R 1st MTP swollen/erythema-which has improved. Significant improvement R wrist motion. No lumbar step off or TTP.
Skin: Warm; No Jaundice
Neuro: AO to self and surroundings, No Slurred Speech or Tremors
Psych: Calm and Intact Judgment/Insight
#Gram positive bacteremia with Diptheroids
-Repeat culture also found to be positive
-bump in wbc could be due to steroids
-Await for susceptibility results. Will start patient on IV vancomycin in the interim.
-TTE noted and negative for vegetation
-Depending on the workup may need to consider further imaging of lumbar spine. No neurological deficit. Significant improvement in back pain/discomfort. However with recent TOÑO unclear data might be conflicted.
-Repeat blood cultures ordered for today.
-ID evaluation.
#Acute on chronic back pain
#Closed compression fracture of lumbar vertebrae
-Lumbar x-ray showed compression deformity of L1 with multilevel degenerative disease
-Follows in the outpatient setting for epidural steroid injections ( Dr Appiah)
-Acute worsening of back pain has limited his ability to work with PT here,
-c/w heating pad
-Tramadol made him lethargic, and will DC further oxycodone.
-Continue with [id number] Tylenol
-s/p TOÑO on 04/15/24.
-family asked for ortho input, ortho agreed to plan, last injected level: Left L4-L5 ) per ortho)
-PT/OT
-Add MiraLAX to avoid constipation
# Edema in both legs, c/w dependent edema, c/w compression stockings, and s/p dose of Lasix.
#Gout flare
04/14, Seems to have developed right wrist pain with swelling/ red and tenderness , 2nd metacarpal bone base , likely gout, probably precipitated by Lasix dose
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
Inflammatory markers elevated. X-rays negative for fracture
Status post IV steroids. Monitor for improvement. Can transition to p.o. steroids prednisone 40mg daily for now. Seems to be significantly helping. Can stop in next 24-48h.
# Anorexia, improving
Family does not want patient to be continued on Remeron.
c/w PPI
# Toxic metabolic encephalopathy likely secondary to hospital-acquired delirium versus pain medication was recommended versus melatonin
DC remeron and melatonin
Continue to reorient
Decrease oxycodone
Family at bedside
Unclear if history of cognitive impairment
#Elevated LFTs
likely due to steroid
No abdominal pain, monitor
#Permanent AF
-Nonvalvular, high [id number]; home medications include beta-leighton and Eliquis
-No known history of electrophysiologic interventions
-Presented in RVR, heart rate now WNL
#Primary Hypertension
-Home medication includes beta-leighton; no first-line agent
-No known history of hypertensive systemic disease
-Blood pressure currently elevated in the context of pain
-Will add on hydralazine as needed
#Dyslipidemia
-No known ASCVD history, remains on home statin therapy
#T2DM
-Home medications include metformin 500 mg twice daily
-Metformin restarted. started on mealtime insulin with ISS. Dose increased to 14 units for now.
-S/p steroid course, glucose remains elevated at times
-Will continue with current regimen and monitor ISS requirements
-Check a1c at 7.9
#Moderate aortic stenosis
-TTE from 12/2023 with Peak/mean gradients 39/21 mmHg, SHARATH 2 cm
-Does have murmur consistent with aortic stenosis on exam
-Will need follow-up after discharge
CODE STATUS: DNR/DNI, confirmed with POA son, Rohit.
DVT prophylaxis: Eliquis
PT/OT plan for SNF on discharge once medically stable.
d/w with patient 2 son at bedside in details.
Anticipated Discharge: > 48 hours
Subjective/Interval History
-
Date of Service: April 17, 2024
States of improvement in back pain
slowly increase appetite
able to move R wrist slowly better
Objective Data
-
Labs:
Laboratory Results
04/17/24
06:44
WBC 18.7 H
Hgb 10.6 L
Hct 30.7 L
Plt Count 406 H
Sodium 131 L
Potassium 4.6
Chloride 95 L
Carbon Dioxide 27
BUN 35 H
Creatinine 0.9
Glucose 333 H
Calcium 8.3 L
Vital Signs:
Vital Signs
Temp Pulse Resp BP Pulse Ox
98.4 F 78 20 126/78 96
04/17/24 10:51 04/17/24 10:51 04/17/24 10:51 04/17/24 10:51 04/17/24 10:51
I&O
04/16/24 04/17/24 04/18/24
06:59 06:59 06:59
Intake Total 1440 / 1440 1320 / 1320
Output Total 700 / 700 150 / 150
Balance 740 / 740 1170 / 1170
Data Reviewed
-
Total Time Spent with Patient (in minutes): 55
--- NOTE | 2024-04-17 12:08 | PHA.VAN.FU ---
Vancomycin Assessment / Plan
- Assessment
Renal Function: Stable
WBC's are: Trending Down
In the past 24 hrs, patient has been: Afebrile
- Dosing Plan
Continue: Vanc 1000mg Q24H
- Monitoring Plan
No level(s) ordered at this time: consider levels in next few days
- Follow Up
Pharmacy will continue to follow.
Vancomycin Follow UP
- -
Patient Age: 89
Patient Sex: Male
Vancomycin Day #: 2
Indication: Bacteremia
Requesting Provider: Dr. Burr
Pertinent Antimicrobial Allergies:
sulfonamide antibiotics - throat closes; swelling
Height / Weight:
Height 5 ft 8 in
Actual Weight 66.678 kg
Pertinent Past Medical History: DM 2
- Vital Signs / Lab Results
Temp Pulse Resp BP Pulse Ox
98.4 F 78 20 126/78 96
04/17/24 10:51 04/17/24 10:51 04/17/24 10:51 04/17/24 10:51 04/17/24 10:51
Lab Results - Hematology
04/15/24 04/16/24 04/17/24
06:56 10:17 06:44
WBC 21.3 H 23.2 H 18.7 H
Lab Results - Chemistry
04/15/24 04/16/24 04/17/24
06:56 10:17 06:44
BUN 32 H 38 H 35 H
Creatinine 0.7 0.9 0.9
Estimated Creat Clear 69 53 54
Albumin 3.4 L
Microbiology Results
04/15/24 14:09 Blood Culture - Preliminary
Blood/Venous Diptheroids
Gram Stain - Preliminary
04/15/24 13:45 Blood Culture - Preliminary
Blood/Venous Diptheroids
Gram Stain - Preliminary
04/14/24 12:57 Blood Culture - Preliminary
Blood/Venous Diptheroids
Gram Stain - Preliminary
04/16/24 09:35 Nasal Screen MRSA (PCR) - Final
Nose MRSA not detected - performed by PCR methodology.
[2024-04-17 14:09] LABS: Glucose - Point of Care 230 mg/dl (70-99)
--- NOTE | 2024-04-17 14:18 | CM ---
manager of organizational development reviewed patient's chart and met with patient and the recommendation is still for skilled placement. Patient's family have selected [facility] and patient has been accepted at [facility], major case detective will need Auth from insurance for
skilled placement.
Plan; Skilled placement at [facility] pending Auth.
[2024-04-17] MEDS: NovoLIN R Flexpen 14 UNITS SC ×2 (14:22→18:07)
[2024-04-17] MEDS: NOVOLOG FLEXPEN-MODERATE RESISTANCE 3 UNITS SC ×2 (14:22→18:08)
[2024-04-17] MEDS: NovoLIN R Flexpen SC (14:27)
--- NOTE | 2024-04-17 16:17 | W.PN.ID1 ---
Date of Service
Date of Service: April 17, 2024
Today's Communication
Continue vancomycin for today.
Assessment / Plan
Bactermeia with diphtheroids- multiple sets
-Although usually a contaminant, multiple blood cultures with Corynebacterium spp. raises the specter of possible real infection.
Leukocytosis
Chronic back pain
- s/p recent steroid injection
Essential hypertension
atrial fibrillation on Eliquis
hyperlipidemia
aortic valve insufficiency
thrombophilia
asthma
T2DM
CHF
COPD
Urinary incontinence
GERD
Recommendations:
Continue with empiric vancomycin for the present.
Case discussed with Microbiology Lab; will send out isolate for further testing and susceptibilities.
Repeat blood cultures obtained today.
Given low back pain, may also consider MRI of L-spine. Will discuss with IR to see if most recent epidural injection would affect findings.
Monitor white count temperature curve.
Further recommendations as additional data is returned.
Chief Complaint
-: Bacteremia
Subjective / Review of Systems
Review of Systems: No Fever, No Chills, No Abdominal Pain, No Nausea and No Vomiting
Vital Signs / Physical Exam
Vital Signs
Vital Signs
Temp Pulse Resp BP Pulse Ox
97.6 F 80 18 138/78 97
04/17/24 15:46 04/17/24 15:46 04/17/24 15:46 04/17/24 15:46 04/17/24 15:46
Physical Exam
Constitutional: No Acute Distress, Comfortable and Non-toxic
Eyes: No Conjunctival Hemorrhage and Sclera Anicteric
Cardiovascular: S1/S2 and Murmur (II/); Negative S3/S4
Pulmonary: Clear; Negative Wheezes, Rales or Rhonchi
Gastrointestinal: Soft and Non Tender
Neurological: Awake and Alert
Psychological: Calm
Objective Data
Lab Data
Lab Results
04/17/24 06:44
04/17/24 06:44
ESR 51 mm/hour (0-20) H 04/14/24 10:25
PT 16.7 Sec (11.4-14.6) H 04/15/24 07:59
INR 1.32 04/15/24 07:59
Estimated Creat Clear 54 ml/min 04/17/24 06:44
Total Bilirubin 0.7 mg/dl (0.2-1.3) 04/15/24 06:56
AST 60 U/L (17-59) H 04/15/24 06:56
ALT 81 U/L (0-50) H 04/15/24 06:56
Alkaline Phosphatase 253 U/L (38-126) H 04/15/24 06:56
C-Reactive Protein > 270.00 mg/L (0.0-10.00) H 04/14/24 10:25
Most recent labs reviewed.
Micro Results:
04/15/24 14:09 Blood Culture - Preliminary
Blood/Venous Diptheroids
Gram Stain - Preliminary
04/15/24 13:45 Blood Culture - Preliminary
Blood/Venous Diptheroids
Gram Stain - Preliminary
04/14/24 12:57 Blood Culture - Preliminary
Blood/Venous Diptheroids
Gram Stain - Preliminary
04/17/24 11:21 Blood Culture - Pending
Blood/Venous
04/17/24 10:44 Blood Culture - Pending
Blood/Venous
04/16/24 09:35 Nasal Screen MRSA (PCR) - Final
Nose MRSA not detected - performed by PCR methodology.
04/08/24 07:17 Influenza Types A & B (ALISHA) - Final
Nasal Swab Negative for Influenza A & B, NAAT
Negative results must be combined with clinical observations
and patient history.
Nucleic Acid Amplification test (NAAT)performed on the
[employer] platform.
Imaging:
04/16/2024 ECHO (TTE): Normal LV ventricular size. No regional wall motion abnormalities. EF approximately 55%. Mild to moderate mitral regurgitation. Mild to moderate tricuspid regurgitation. Moderate aortic stenosis. No vegetation noted.
03/30/2024 peripheral vascular ultrasound No evidence of deep venous thrombosis of the left lower extremity.
03/30/2024: Foot x-ray: No acute osseous abnormality. Degenerative changes, most prominent about the left first metatarsophalangeal joint.
Care Review
Plan reviewed with: Physician (Hospitalist)
[2024-04-17 16:32] LABS: Glucose - Point of Care 242 mg/dl (70-99)
[2024-04-17] MEDS: CRESTOR 20 MG PO (18:07)
[2024-04-17] MEDS: MIRALAX 17 GRAMS PO (21:03)
[2024-04-17] MEDS: DULCOLAX 10 MG PO (21:03)
[2024-04-17 22:26] LABS: Glucose - Point of Care 161 mg/dl (70-99)
[2024-04-18] VITALS (7 sets, daily range): BP systolic 156–167; BP diastolic 82–93; BMI 22.3
[2024-04-18] MEDS: VANCOCIN 200 IV (05:34)
[2024-04-18 07:30] LABS: Glucose - Point of Care 212 mg/dl (70-99)
--- NOTE | 2024-04-18 08:14 | W.PN.HOSP.TC ---
Today's Communication/Plan
-
IV vancomycin
stop steroids tomm
MRI lumbar pending
PT/OT
monitor poc
updated son at bedside
Assessment / Plan
Assessment / Plan
Physical Exam
General: No Apparent Distress and Comfortable
HEENT: Moist mucous membranes and Atraumatic
Respiratory: Clear
Cardiac: S1/S2 and Irregular Rhythm, no tachycardia. +murmur,
GI: Soft, Non Tender and Non Distended
Musculoskeletal: No Clubbing, No Cyanosis, ++ edema in both lower legs. R1st no further erythema. No lumbar step off or TTP.
Skin: Warm; No Jaundice
Neuro: AO to self and surroundings, No Slurred Speech or Tremors
Psych: Calm and Intact Judgment/Insight
#Diptheroids bacteremia
-Repeat culture also found to be positive
-bump in wbc could be due to steroids
-Await for susceptibility results. Patient on IV vancomycin
-TTE noted and negative for vegetation
-MRI lumbar pending.
-Repeat blood cultures ordered on 04/17 in lab
-Off note, pt had recent extensive dental work done. Had some mild bleeding post procedure for few days.
-ID recs
#Acute on chronic back pain
#Closed compression fracture of lumbar vertebrae
-Lumbar x-ray showed compression deformity of L1 with multilevel degenerative disease
-Follows in the outpatient setting for epidural steroid injections ( Dr Appiah)
-Acute worsening of back pain has limited his ability to work with PT here,
-c/w heating pad
-Tramadol made him lethargic, and will DC further oxycodone.
-Continue with [id number] Tylenol
-s/p TOÑO on 04/15/24.
-family asked for ortho input, ortho agreed to plan, last injected level: Left L4-L5 ) per ortho)
-PT/OT SNF
-Add MiraLAX to avoid constipation
# Edema in both legs, c/w dependent edema, c/w compression stockings, and s/p dose of Lasix.
#Gout flare
04/14, Seems to have developed right wrist pain with swelling/ red and tenderness , 2nd metacarpal bone base , likely gout, probably precipitated by Lasix dose
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
Inflammatory markers elevated. X-rays negative for fracture
Status post IV steroids. Monitor for improvement. Can transition to p.o. steroids prednisone 40mg daily for now. Seems to be significantly helping. Last dose steroids tomm.
# Anorexia, improving
Family does not want patient to be continued on Remeron.
c/w PPI
# Toxic metabolic encephalopathy likely secondary to hospital-acquired delirium versus pain medication was recommended versus melatonin
DC remeron and melatonin
Continue to reorient
Decrease oxycodone
Family at bedside
Unclear if history of cognitive impairment
#Elevated LFTs
likely due to steroid
No abdominal pain, monitor
#Permanent AF
-Nonvalvular, high [id number]; home medications include beta-leighton and Eliquis
-No known history of electrophysiologic interventions
-Presented in RVR, heart rate now WNL
#Primary Hypertension
-Home medication includes beta-leighton; no first-line agent
-No known history of hypertensive systemic disease
-Blood pressure currently elevated in the context of pain
-Will add on hydralazine as needed
#Dyslipidemia
-No known ASCVD history, remains on home statin therapy
#T2DM
-Home medications include metformin 500 mg twice daily
-Metformin restarted. started on mealtime insulin with ISS. Dose increased to 14 units for now.
-S/p steroid course, glucose remains elevated at times
-Will continue with current regimen and monitor ISS requirements
-Check a1c at 7.9
#Moderate aortic stenosis
-TTE from 12/2023 with Peak/mean gradients 39/21 mmHg, SHARATH 2 cm
-Does have murmur consistent with aortic stenosis on exam
-Will need follow-up after discharge
CODE STATUS: DNR/DNI, confirmed with POA son, Rohit.
DVT prophylaxis: Eliquis
PT/OT plan for SNF on discharge once medically stable.
d/w with patient son at bedside in details
Anticipated Discharge: > 48 hours
Subjective/Interval History
-
Date of Service: April 18, 2024
States improvement in wrist and back pain
worked with PT yesterday
denies numbing/tingling in legs
Wants to go home soon
Objective Data
-
Labs:
Laboratory Results
04/18/24
08:09
WBC Pending
Hgb Pending
Hct Pending
Plt Count Pending
Sodium Pending
Potassium Pending
Chloride Pending
Carbon Dioxide Pending
BUN Pending
Creatinine Pending
Glucose Pending
Calcium Pending
Vital Signs:
Vital Signs
Temp Pulse Resp BP Pulse Ox
98.0 F 103 18 156/82 96
04/18/24 03:43 04/18/24 03:43 04/18/24 03:43 04/18/24 03:43 04/18/24 03:43
I&O
04/17/24 04/18/24 04/19/24
06:59 06:59 06:59
Intake Total 1320 / 1320 840 / 840
Output Total 150 / 150 675 / 675
Balance 1170 / 1170 165 / 165
Data Reviewed
-
Total Time Spent with Patient (in minutes): 55
[2024-04-18 08:25] LABS: % Basophils 0.1 % (0-2); % Lymphocytes 2.2 % (20.5-51.1); % Monocytes 4.4 % (1.7-9.3); % Neutrophils 92.3 % (42.2-75.2); Absolute Immature Granulocytes 0.2 10^3/uL (0-0.05); Absolute Lymphocytes 0.5 10^3/uL (1.2-3.4); Absolute Monocytes 0.9 10^3/uL (0.1-0.6); Absolute Neutrophils 19.9 10^3/uL (1.4-6.5); Hematocrit 35.9 % (39.0-52.0); Hemoglobin 11.8 g/dL (13.0-18.0); Mean Corp Hgb Conc. 32.9 g/dL (33.0-37.0); Mean Corpuscular Hgb 28.9 pg (27.0-31.0); Mean Corpuscular Volume 87.8 fL (80.0-94.0); Mean Platelet Volume 9.6 fL (7.4-10.4); Nucleated Red Blood Cells % 0 % (-); Platelet Count 429 10^3/uL (130-400); Red Blood Cell Count 4.09 10^6/uL (4.70-6.10); White Blood Cell Count 21.6 10^3/uL (4.8-10.8)
[2024-04-18] MEDS: PROTONIX 40 MG PO (09:00)
[2024-04-18] MEDS: ELIQUIS 5 MG PO ×2 (09:00→20:44)
[2024-04-18] MEDS: ZYLOPRIM 200 MG PO (09:00)
[2024-04-18] MEDS: TYLENOL 1000 MG PO (09:01)
[2024-04-18] MEDS: GLUCOPHAGE 500 MG PO ×2 (09:01→18:33)
[2024-04-18] MEDS: LOPRESSOR 50 MG PO ×2 (09:01→20:43)
[2024-04-18] MEDS: ZESTRIL 10 MG PO (09:01)
[2024-04-18] MEDS: DELTASONE 40 MG PO (09:01)
[2024-04-18] MEDS: NOVOLOG FLEXPEN-MODERATE RESISTANCE 3 UNITS SC (09:09)
[2024-04-18] MEDS: NovoLIN R Flexpen 14 UNITS SC ×2 (09:09→18:33)
[2024-04-18 09:18] LABS: Blood Urea Nitrogen 33 mg/dl (9-20); Calcium 8.9 mg/dl (8.4-10.2); Carbon Dioxide 29 mmol/L (22-30); Chloride 95 mmol/L (98-107); Estimated Creatinine Clearance 53 ml/min; Glucose 204 mg/dl (70-99); Potassium 4.9 mmol/L (3.5-5.1); Sodium 132 mmol/L (135-145); eGFR > 60.00
--- NOTE | 2024-04-18 09:24 | PHA.VAN.FU ---
Vancomycin Assessment / Plan
- Assessment
Renal Function: Stable
WBC's are: Trending Up
In the past 24 hrs, patient has been: Afebrile
- Dosing Plan
Continue: Vanc 1000mg Q24H
- Monitoring Plan
No level(s) ordered at this time: will likely order levels following tomorrow's dose or Monday's dose
- Follow Up
Pharmacy will continue to follow.
Vancomycin Follow UP
- -
Patient Age: 89
Patient Sex: Male
Vancomycin Day #: 3
Indication: Bacteremia
Requesting Provider: Dr. Burr
Pertinent Antimicrobial Allergies:
sulfonamide antibiotics - throat closes; swelling
Height / Weight:
Height 5 ft 8 in
Actual Weight 66.395 kg
Pertinent Past Medical History: DM 2
- Vital Signs / Lab Results
Temp Pulse Resp BP Pulse Ox
98.0 F 103 18 156/82 96
04/18/24 03:43 04/18/24 03:43 04/18/24 03:43 04/18/24 03:43 04/18/24 03:43
Lab Results - Hematology
04/16/24 04/17/24 04/18/24
10:17 06:44 08:09
WBC 23.2 H 18.7 H 21.6 H
Lab Results - Chemistry
04/16/24 04/17/24 04/18/24
10:17 06:44 08:09
BUN 38 H 35 H 33 H
Creatinine 0.9 0.9 0.9
Estimated Creat Clear 53 54 53
Microbiology Results
04/15/24 13:45 Blood Culture - Preliminary
Blood/Venous Diptheroids
Gram Stain - Final
04/15/24 14:09 Blood Culture - Preliminary
Blood/Venous Diptheroids
Gram Stain - Preliminary
04/14/24 12:57 Blood Culture - Preliminary
Blood/Venous Diptheroids
Gram Stain - Preliminary
04/16/24 09:35 Nasal Screen MRSA (PCR) - Final
Nose MRSA not detected - performed by PCR methodology.
[2024-04-18 12:47] LABS: Glucose - Point of Care 157 mg/dl (70-99)
[2024-04-18] MEDS: NovoLIN R Flexpen SC (12:53)
[2024-04-18] MEDS: NOVOLOG FLEXPEN-MODERATE RESISTANCE 1 UNITS SC ×2 (12:54→18:33)
--- NOTE | 2024-04-18 14:33 | CM ---
Chart reviewed and recommendation is still for skilled placement, referral sent to [facility] and patient has been accepted at [facility], patient will need Auth for skilled from insurance, disease case manager spoke with patient and family.
Plan; Skilled placement at [facility], pending Auth.
--- NOTE | 2024-04-18 15:12 | W.PN.ID1 ---
Date of Service
Date of Service: April 18, 2024
Today's Communication
Continue vancomycin.
Assessment / Plan
Bactermeia with diphtheroids- multiple sets
-Although usually a contaminant, multiple blood cultures with Corynebacterium spp. raises the specter of possible real infection.
Leukocytosis
-Possible steroid effect
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
Chronic back pain
- s/p recent steroid injection
Essential hypertension
atrial fibrillation on Eliquis
hyperlipidemia
aortic valve insufficiency
thrombophilia
asthma
T2DM
CHF
COPD
Urinary incontinence
GERD
Recommendations:
Continue with empiric vancomycin for the present.
Case discussed with Microbiology Lab; recovered isolate has been sent out for further identification and susceptibility testing.
Repeat blood cultures obtained are pending.
MRI findings noted. Would recommend evaluation by Neurosurgery regarding need for potential surgery.
Monitor white count temperature curve.
Further recommendations as additional data is returned.
����������������������������������������������������������
Chief Complaint
-: Bacteremia
Subjective / Review of Systems
Patient seen and examined. Underwent MRI of the lumbar spine earlier today. Experienced 8/10 pain during the exam, but low back pain now down to 4/10. Denies fevers.
Vital Signs / Physical Exam
Vital Signs
Vital Signs
Temp Pulse Resp BP Pulse Ox
98.5 F 74 19 158/91 96
04/18/24 12:00 04/18/24 12:00 04/18/24 12:00 04/18/24 12:00 04/18/24 12:00
Physical Exam
Constitutional: No Acute Distress, Comfortable and Non-toxic
Eyes: No Conjunctival Hemorrhage and Sclera Anicteric
Cardiovascular: S1/S2 and Murmur (II/); Negative S3/S4
Pulmonary: Clear; Negative Wheezes, Rales or Rhonchi
Gastrointestinal: Soft and Non Tender
Neurological: Awake and Alert
Psychological: Calm
Objective Data
Lab Data
Lab Results
04/18/24 08:09
04/18/24 08:09
ESR 51 mm/hour (0-20) H 04/14/24 10:25
PT 16.7 Sec (11.4-14.6) H 04/15/24 07:59
INR 1.32 04/15/24 07:59
Estimated Creat Clear 53 ml/min 04/18/24 08:09
Total Bilirubin 0.7 mg/dl (0.2-1.3) 04/15/24 06:56
AST 60 U/L (17-59) H 04/15/24 06:56
ALT 81 U/L (0-50) H 04/15/24 06:56
Alkaline Phosphatase 253 U/L (38-126) H 04/15/24 06:56
C-Reactive Protein > 270.00 mg/L (0.0-10.00) H 04/14/24 10:25
Most recent labs reviewed.
Micro Results:
04/17/24 11:21 Blood Culture - Preliminary
Blood/Venous No Growth in 24 hours- Final report to follow
04/17/24 10:44 Blood Culture - Preliminary
Blood/Venous No Growth in 24 hours- Final report to follow
04/15/24 13:45 Blood Culture - Preliminary
Blood/Venous Diptheroids
Gram Stain - Final
04/15/24 14:09 Blood Culture - Preliminary
Blood/Venous Diptheroids
Gram Stain - Preliminary
04/14/24 12:57 Blood Culture - Preliminary
Blood/Venous Diptheroids
Gram Stain - Preliminary
04/16/24 09:35 Nasal Screen MRSA (PCR) - Final
Nose MRSA not detected - performed by PCR methodology.
04/08/24 07:17 Influenza Types A & B (ALISHA) - Final
Nasal Swab Negative for Influenza A & B, NAAT
Negative results must be combined with clinical observations
and patient history.
Nucleic Acid Amplification test (NAAT)performed on the
[employer] platform.
Imaging:
04/18/2024 MRI lumbar spine with and without contrast: Active discitis/osteomyelitis at L2/3. Associated small epidural abscess at the L2 level. Please see full dictation for additional detail.
04/16/2024 ECHO (TTE): Normal LV ventricular size. No regional wall motion abnormalities. EF approximately 55%. Mild to moderate mitral regurgitation. Mild to moderate tricuspid regurgitation. Moderate aortic stenosis. No vegetation noted.
Care Review
Plan reviewed with: Physician (Hospitalist)
[2024-04-18 17:11] LABS: Glucose - Point of Care 154 mg/dl (70-99)
[2024-04-18] MEDS: CRESTOR 20 MG PO (18:32)
[2024-04-18 20:53] LABS: Glucose - Point of Care 240 mg/dl (70-99)
[2024-04-18] MEDS: DULCOLAX PO (20:55)
[2024-04-18] MEDS: MIRALAX PO (20:56)
[2024-04-18] MEDS: TYLENOL PO (20:56)
[2024-04-19] VITALS (9 sets, daily range): BP systolic 132–164; BP diastolic 72–91; BMI 22.9
[2024-04-19] MEDS: TYLENOL 1000 MG PO ×3 (03:22→21:07)
[2024-04-19] MEDS: VANCOCIN 200 IV (05:29)
[2024-04-19 08:30] LABS: Glucose - Point of Care 180 mg/dl (70-99)
[2024-04-19 08:40] LABS: Hematocrit 36.9 % (39.0-52.0); Hemoglobin 11.9 g/dL (13.0-18.0); Mean Corp Hgb Conc. 32.2 g/dL (33.0-37.0); Mean Corpuscular Hgb 29.4 pg (27.0-31.0); Mean Corpuscular Volume 91.1 fL (80.0-94.0); Mean Platelet Volume 9.8 fL (7.4-10.4); Platelet Count 450 10^3/uL (130-400); Red Blood Cell Count 4.05 10^6/uL (4.70-6.10); Red Cell Dist. Width 14.1 % (11.5-14.5); White Blood Cell Count 22.8 10^3/uL (4.8-10.8)
[2024-04-19] MEDS: NovoLIN R Flexpen 14 UNITS SC (08:47)
[2024-04-19] MEDS: NOVOLOG FLEXPEN-MODERATE RESISTANCE 1 UNITS SC ×2 (08:48→13:38)
[2024-04-19] MEDS: PROTONIX 40 MG PO (08:48)
[2024-04-19] MEDS: ZESTRIL 10 MG PO (08:48)
[2024-04-19] MEDS: ZYLOPRIM 200 MG PO (08:48)
[2024-04-19] MEDS: DELTASONE 40 MG PO (08:49)
[2024-04-19] MEDS: LOPRESSOR 50 MG PO ×2 (08:50→21:08)
[2024-04-19] MEDS: ELIQUIS 5 MG PO ×2 (08:50→21:08)
[2024-04-19] MEDS: GLUCOPHAGE 500 MG PO ×2 (08:50→17:53)
[2024-04-19 08:51] LABS: Blood Urea Nitrogen 29 mg/dl (9-20); Calcium 8.7 mg/dl (8.4-10.2); Carbon Dioxide 26 mmol/L (22-30); Chloride 93 mmol/L (98-107); Estimated Creatinine Clearance 55 ml/min; Glucose 172 mg/dl (70-99); Potassium 4.8 mmol/L (3.5-5.1); Sodium 131 mmol/L (135-145); eGFR > 60.00
[2024-04-19 09:42] LABS: Vancomycin Peak 26.4 ug/ml (18-26)
--- NOTE | 2024-04-19 10:26 | PHA.VAN.FU ---
Vancomycin Assessment / Plan
- Assessment
Renal Function: Stable
WBC's are: Stable
In the past 24 hrs, patient has been: Afebrile
- Dosing Plan
Continue: Vanc 1000mg Q24H
- Monitoring Plan
Peak Level: peak = 26.4 - will assess with trough in AM
Trough Level: 04/20 05:30
Monitoring Comments: levels drawn after 3rd maintenance dose
- Follow Up
Pharmacy will continue to follow.
Vancomycin Follow UP
- -
Patient Age: 89
Patient Sex: Male
Vancomycin Day #: 4
Indication: Bacteremia
Requesting Provider: Dr. Burr
Pertinent Antimicrobial Allergies:
sulfonamide antibiotics - throat closes; swelling
Height / Weight:
Height 5 ft 8 in
Actual Weight 68.152 kg
Pertinent Past Medical History: DM 2
- Vital Signs / Lab Results
Temp Pulse Resp BP Pulse Ox
97.7 F 95 17 164/91 99
04/19/24 07:10 04/19/24 08:48 04/19/24 07:10 04/19/24 08:48 04/19/24 07:10
Lab Results - Hematology
04/16/24 04/17/24 04/18/24
10:17 06:44 08:09
WBC 23.2 H 18.7 H 21.6 H
04/19/24
06:26
WBC 22.8 H
Lab Results - Chemistry
04/16/24 04/17/24 04/18/24
10:17 06:44 08:09
BUN 38 H 35 H 33 H
Creatinine 0.9 0.9 0.9
Estimated Creat Clear 53 54 53
04/19/24
06:26
BUN 29 H
Creatinine 0.9
Estimated Creat Clear 55
Microbiology Results
04/15/24 13:45 Blood Culture - Preliminary
Blood/Venous Diptheroids
Gram Stain - Final
04/15/24 14:09 Blood Culture - Preliminary
Blood/Venous Diptheroids
Gram Stain - Final
04/17/24 11:21 Blood Culture - Preliminary
Blood/Venous No Growth in 24 hours- Final report to follow
04/17/24 10:44 Blood Culture - Preliminary
Blood/Venous No Growth in 24 hours- Final report to follow
04/14/24 12:57 Blood Culture - Preliminary
Blood/Venous Diptheroids
Gram Stain - Preliminary
Therapeutic Drug Monitoring
Vancomycin Peak 26.4 ug/ml (18-26) H 04/19/24 08:27
--- NOTE | 2024-04-19 10:39 | W.PN.HOSP.TC ---
Today's Communication/Plan
-
await NSG input
IV vancomycin
stop steroids
PT/OT
Adjust insulin as off steroids
Assessment / Plan
Assessment / Plan
Physical Exam
General: No Apparent Distress and Comfortable
HEENT: Moist mucous membranes and Atraumatic
Respiratory: Clear
Cardiac: S1/S2 and Irregular Rhythm, no tachycardia. +murmur,
GI: Soft, Non Tender and Non Distended
Musculoskeletal: No Clubbing, No Cyanosis, ++ edema in both lower legs. R1st no further erythema. No lumbar step off or TTP.
Skin: Warm; No Jaundice
Neuro: AO to self and surroundings, No Slurred Speech or Tremors
Psych: Calm and Intact Judgment/Insight
#Diptheroids bacteremia
#Epidural abscess L2 and L2-L3 Osteomyelitis/discitis
-Repeat culture also found to be positive
-bump in wbc could be due to steroids
-Await for susceptibility results. Patient on IV vancomycin
-TTE noted and negative for vegetation
-MRI lumbar results
-Repeat blood cultures ordered on 04/17 and are negative so far
-Off note, pt had recent extensive dental work done. Had some mild bleeding post procedure for few days.
-Neurosurgery consulted.
-ID recs
#Acute on chronic back pain
#Closed compression fracture of lumbar vertebrae
-Lumbar x-ray showed compression deformity of L1 with multilevel degenerative disease
-Follows in the outpatient setting for epidural steroid injections ( Dr Appiah)
-Acute worsening of back pain has limited his ability to work with PT here,
-c/w heating pad
-Tramadol made him lethargic, and will DC further oxycodone.
-Continue with [id number] Tylenol
-s/p TOÑO on 04/15/24.
-family asked for ortho input, ortho agreed to plan, last injected level: Left L4-L5 ) per ortho)
-PT/OT SNF
-Add MiraLAX to avoid constipation
# Edema in both legs, c/w dependent edema, c/w compression stockings, and s/p dose of Lasix.
#Gout flare
04/14, Seems to have developed right wrist pain with swelling/ red and tenderness , 2nd metacarpal bone base , likely gout, probably precipitated by Lasix dose
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
Inflammatory markers elevated. X-rays negative for fracture
Status post IV steroids. Monitor for improvement. Can transition to p.o. steroids prednisone 40mg daily and has been stopped now.
# Anorexia, improving
Family does not want patient to be continued on Remeron.
c/w PPI
# Toxic metabolic encephalopathy likely secondary to hospital-acquired delirium versus pain medication was recommended versus melatonin
DC remeron and melatonin
Continue to reorient
Decrease oxycodone
Family at bedside
Unclear if history of cognitive impairment
#Elevated LFTs
likely due to steroid
No abdominal pain, monitor
#Permanent AF
-Nonvalvular, high [id number]; home medications include beta-leighton and Eliquis
-No known history of electrophysiologic interventions
-Presented in RVR, heart rate now WNL
#Primary Hypertension
-Home medication includes beta-leighton; no first-line agent
-No known history of hypertensive systemic disease
-Blood pressure currently elevated in the context of pain
-Will add on hydralazine as needed
#Dyslipidemia
-No known ASCVD history, remains on home statin therapy
#T2DM
-Home medications include metformin 500 mg twice daily
-Metformin restarted. started on mealtime insulin with ISS.
-S/p steroid course, glucose remains elevated at times
-Will continue with current regimen and monitor ISS requirements
-Check a1c at 7.9. POC might downtrend as off steroids.
#Moderate aortic stenosis
-TTE from 12/2023 with Peak/mean gradients 39/21 mmHg, SHARATH 2 cm
-Does have murmur consistent with aortic stenosis on exam
-Will need follow-up after discharge
CODE STATUS: DNR/DNI, confirmed with POA sonRohit.
DVT prophylaxis: Eliquis
PT/OT plan for SNF on discharge once medically stable.
Anticipated Discharge: > 48 hours
Subjective/Interval History
-
Date of Service: April 19, 2024
states back is sore. No severe radiating pain
Objective Data
-
Labs:
Laboratory Results
04/19/24
06:26
WBC 22.8 H
Hgb 11.9 L
Hct 36.9 L
Plt Count 450 H
Sodium 131 L
Potassium 4.8
Chloride 93 L
Carbon Dioxide 26
BUN 29 H
Creatinine 0.9
Glucose 172 H
Calcium 8.7
Vital Signs:
Vital Signs
Temp Pulse Resp BP Pulse Ox
97.7 F 95 17 164/91 99
04/19/24 07:10 04/19/24 08:48 04/19/24 07:10 04/19/24 08:48 04/19/24 07:10
I&O
04/18/24 04/19/24 04/20/24
06:59 06:59 06:59
Intake Total 840 / 840 930 / 930
Output Total 675 / 675 200 / 200 225 / 225
Balance 165 / 165 730 / 730 -225 / -225
Data Reviewed
-
Total Time Spent with Patient (in minutes): 55
[2024-04-19 10:46] LABS: % Basophils 0.2 % (0-2); % Immature Granulocytes 1.2 % (0-0.5); % Monocytes 5.4 % (1.7-9.3); % Neutrophils 91.2 % (42.2-75.2); Absolute Basophils 0.1 10^3/uL (0-0.2); Absolute Immature Granulocytes 0.3 10^3/uL (0-0.05); Absolute Lymphocytes 0.5 10^3/uL (1.2-3.4); Absolute Monocytes 1.2 10^3/uL (0.1-0.6); Absolute Neutrophils 20.8 10^3/uL (1.4-6.5); Nucleated Red Blood Cells % 0 % (-)
--- NOTE | 2024-04-19 10:47 | CON.NS ---
Chief Complaint
-
Lumbar osteo/discitis, epidural abscess
History of Present Illness
89 yo male admitted with weakness and back pain. Patient has chronic LBP with recent TOÑO by Dr. Andre on 04/16. Ultimately found to be bacteremic and MRI shows osteo discitis with epidural abscess. He is able to ambulate. He notes no leg pain. He
feels that his legs are strong. he denies any parasthesias or b/b changes.
Review of Systems
-
10 pt ROS completed and neg except as stated.
Medication and Allergies
Home Medications
Home Medications
�Medication �Instructions �Recorded
apixaban 5 mg tablet (Eliquis) 5 mg PO BID Blood Clot 08/21/23
Prevention/Tx
metformin 500 mg tablet 500 mg PO BID Diabetes 08/21/23
omega 2-alg-ria-fish oil 1,000 mg 1 cap PO DAILY Supplement 08/21/23
(120 mg-180 mg) capsule (Fish Oil)
rosuvastatin 20 mg tablet 20 mg PO QPM High Cholesterol 08/21/23
metoprolol tartrate 25 mg tablet 25 mg PO BID #60 tabs 08/25/23
lisinopril 10 mg tablet 10 mg PO DAILY Blood Pressure 03/30/24
acetaminophen 650 mg 1,300 mg PO Q8HPRN PRN mild pain 04/08/24
tablet,extended release (Tylenol
Arthritis Pain)
colchicine 0.6 mg tablet 0.6 mg PO DAILY Antigout Agent 04/09/24
Allergies
Allergies
Allergy/AdvReac Type Severity Reaction Status Date / Time
diltiazem Allergy LIGHTHEADED, Verified 04/08/24 15:39
HEART RATE
HAD
'PAUSES'
Sulfa (Sulfonamide Allergy Unknown Verified 03/30/24 12:05
Antibiotics)
sulfamethoxazole Allergy THROAT Verified 04/08/24 15:39
CLOSES
SWELLING
Physical Exam
-
Exam:
Awake and alert
full UE and LE strength
sensation intact
reflexes decreased but symmetrical
MRI shows OM/Discitis at L2-4 with small epidural abcess at L2. There is stenosis at L3/4
Problems
-
Problem Status Onset Code
Closed compression fracture of lumbar vertebra S32.000A
Atrial fibrillation with rapid ventricular response I48.91
Assessment / Plan
-
OM/Discitis
1. abx as per ID
2. he is neurologically intact, there are no surgical needs
3. Pt/OT
4. pain control
5. reconsult prn
6. Ok to follow up as Op as needed
[2024-04-19 12:26] LABS: Glucose - Point of Care 150 mg/dl (70-99)
[2024-04-19] MEDS: NovoLIN R Flexpen 7 UNITS SC ×2 (13:38→17:53)
--- NOTE | 2024-04-19 15:05 | CM ---
Chart reviewed and physical therapy are still recommending skilled placement, referral sent to [facility] and patient was accepted at [facility], Auth needs to be obtained for skilled placement at [facility]. [employer] manager reached out to patient's
daughter in law Sharon [phone] as requested by patient's family and provided update.
Plan; Skilled placement at [facility] when medically cleared for discharge.
--- NOTE | 2024-04-19 16:16 | W.PN.ID1 ---
Date of Service
Date of Service: April 19, 2024
Today's Communication
Continue vancomycin. Await final culture results.
Assessment / Plan
Bactermeia with diphtheroids - multiple sets
-Although usually a contaminant, multiple blood cultures with Corynebacterium spp. raises the specter of possible real infection.
Leukocytosis
-Possible steroid effect
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
Elevated ESR/CRP
Chronic back pain
- s/p recent steroid injection
Essential hypertension
atrial fibrillation on Eliquis
hyperlipidemia
aortic valve insufficiency
thrombophilia
asthma
T2DM
CHF
COPD
Urinary incontinence
GERD
Recommendations:
Continue with empiric vancomycin for the present. Follow Vanco levels closely to prevent renal toxicity.
Case discussed with Microbiology Lab; recovered isolate has been sent out for further identification and susceptibility testing.
Repeat blood cultures obtained are pending but revealed no growth at 48 hours
Neurosurgery evaluation noted. No plans for surgery at present.
Monitor white count temperature curve.
Further recommendations as additional data is returned.
����������������������������������������������������������
Chief Complaint
-: Bacteremia and Other (Epidural abscess. Vertebral osteomyelitis/discitis)
Subjective / Review of Systems
Review of Systems: No Fever and No Chills
Vital Signs / Physical Exam
Vital Signs
Vital Signs
Temp Pulse Resp BP Pulse Ox
97.7 F 78 18 147/89 98
04/19/24 15:49 04/19/24 15:49 04/19/24 15:49 04/19/24 15:49 04/19/24 15:49
Physical Exam
Constitutional: No Acute Distress, Comfortable and Non-toxic
Eyes: No Conjunctival Hemorrhage and Sclera Anicteric
Cardiovascular: S1/S2 and Murmur (II/); Negative S3/S4
Pulmonary: Clear; Negative Wheezes, Rales or Rhonchi
Gastrointestinal: Soft and Non Tender
Skin: Negative Rash or Jaundice
Neurological: Awake and Alert
Psychological: Calm
Objective Data
Lab Data
Lab Results
04/19/24 06:26
04/19/24 06:26
ESR 51 mm/hour (0-20) H 04/14/24 10:25
PT 16.7 Sec (11.4-14.6) H 04/15/24 07:59
INR 1.32 04/15/24 07:59
Estimated Creat Clear 55 ml/min 04/19/24 06:26
Total Bilirubin 0.7 mg/dl (0.2-1.3) 04/15/24 06:56
AST 60 U/L (17-59) H 04/15/24 06:56
ALT 81 U/L (0-50) H 04/15/24 06:56
Alkaline Phosphatase 253 U/L (38-126) H 04/15/24 06:56
C-Reactive Protein > 270.00 mg/L (0.0-10.00) H 04/14/24 10:25
Most recent labs reviewed.
Micro Results:
04/15/24 13:45 Blood Culture - Preliminary
Blood/Venous Diptheroids
Gram Stain - Final
04/17/24 11:21 Blood Culture - Preliminary
Blood/Venous No Growth in 48 hours- Final report to follow
04/17/24 10:44 Blood Culture - Preliminary
Blood/Venous No Growth in 48 hours- Final report to follow
04/15/24 14:09 Blood Culture - Preliminary
Blood/Venous Diptheroids
Gram Stain - Final
04/14/24 12:57 Blood Culture - Preliminary
Blood/Venous Diptheroids
Gram Stain - Preliminary
04/16/24 09:35 Nasal Screen MRSA (PCR) - Final
Nose MRSA not detected - performed by PCR methodology.
04/08/24 07:17 Influenza Types A & B (ALISHA) - Final
Nasal Swab Negative for Influenza A & B, NAAT
Negative results must be combined with clinical observations
and patient history.
Nucleic Acid Amplification test (NAAT)performed on the
[employer] platform.
Imaging:
04/18/2024 MRI lumbar spine with and without contrast: Active discitis/osteomyelitis at L2/3. Associated small epidural abscess at the L2 level. Please see full dictation for additional detail.
04/16/2024 ECHO (TTE): Normal LV ventricular size. No regional wall motion abnormalities. EF approximately 55%. Mild to moderate mitral regurgitation. Mild to moderate tricuspid regurgitation. Moderate aortic stenosis. No vegetation noted.
[2024-04-19 16:47] LABS: Glucose - Point of Care 138 mg/dl (70-99)
[2024-04-19] MEDS: NOVOLOG FLEXPEN-MODERATE RESISTANCE SC (17:53)
[2024-04-19] MEDS: CRESTOR 20 MG PO (17:54)
[2024-04-19 19:50] LABS: Glucose - Point of Care 182 mg/dl (70-99)
[2024-04-19] MEDS: MIRALAX PO (21:07)
[2024-04-19] MEDS: DULCOLAX PO (21:09)
[2024-04-19 22:17] LABS: Glucose - Point of Care 157 mg/dl (70-99)
[2024-04-20 03:00] VITALS: BP 135/82
[2024-04-20 06:00] VITALS: BMI 22.1
[2024-04-20 07:08] LABS: % Basophils 0.1 % (0-2); % Immature Granulocytes 1.4 % (0-0.5); % Lymphocytes 2.7 % (20.5-51.1); % Monocytes 4.5 % (1.7-9.3); % Neutrophils 91.3 % (42.2-75.2); Absolute Immature Granulocytes 0.3 10^3/uL (0-0.05); Absolute Lymphocytes 0.6 10^3/uL (1.2-3.4); Absolute Monocytes 0.9 10^3/uL (0.1-0.6); Absolute Neutrophils 18.4 10^3/uL (1.4-6.5); Hematocrit 34.7 % (39.0-52.0); Hemoglobin 11.5 g/dL (13.0-18.0); Mean Corp Hgb Conc. 33.1 g/dL (33.0-37.0); Mean Corpuscular Volume 87.6 fL (80.0-94.0); Mean Platelet Volume 9.5 fL (7.4-10.4); Nucleated Red Blood Cells % 0 % (-); Platelet Count 410 10^3/uL (130-400); Red Blood Cell Count 3.96 10^6/uL (4.70-6.10); Red Cell Dist. Width 13.9 % (11.5-14.5); White Blood Cell Count 20.2 10^3/uL (4.8-10.8)
[2024-04-20 07:23] LABS: Vancomycin Trough 11.7 ug/ml (5-20)
[2024-04-20 07:29] LABS: Blood Urea Nitrogen 29 mg/dl (9-20); Calcium 8.5 mg/dl (8.4-10.2); Carbon Dioxide 30 mmol/L (22-30); Chloride 95 mmol/L (98-107); Estimated Creatinine Clearance 53 ml/min; Glucose 131 mg/dl (70-99); Potassium 4.7 mmol/L (3.5-5.1); Sodium 131 mmol/L (135-145); eGFR > 60.00
[2024-04-20 07:42] LABS: Glucose - Point of Care 128 mg/dl (70-99)
[2024-04-20 07:50] VITALS: BP 127/85
[2024-04-20] MEDS: VANCOCIN 200 IV (07:53)
[2024-04-20] MEDS: PROTONIX 40 MG PO (08:01)
[2024-04-20] MEDS: NovoLIN R Flexpen 7 UNITS SC (08:01)
[2024-04-20] MEDS: NOVOLOG FLEXPEN-MODERATE RESISTANCE SC ×2 (08:01→12:45)
[2024-04-20] MEDS: TYLENOL 1000 MG PO ×3 (08:02→22:35)
[2024-04-20] MEDS: ZYLOPRIM 200 MG PO (08:02)
[2024-04-20] MEDS: ZESTRIL 10 MG PO (08:02)
[2024-04-20] MEDS: LOPRESSOR 50 MG PO ×2 (08:03→19:10)
[2024-04-20] MEDS: GLUCOPHAGE 500 MG PO ×2 (08:03→16:56)
[2024-04-20] MEDS: ELIQUIS 5 MG PO ×2 (08:09→19:10)
--- NOTE | 2024-04-20 09:33 | PHA.VAN.FU ---
Vancomycin Assessment / Plan
- Assessment
Renal Function: Stable
WBC's are: Stable
In the past 24 hrs, patient has been: Afebrile
- Assessment - Therapeutic Drug Monitoring
Extrapolated Cmax (mcg/mL): 28.4
Peak level was drawn: Appropriately
Extrapolated Cmin (mcg/mL): 11.9
Trough Drawn: Appropriately
Levels were drawn: At steady state (after 3rd maintenance dose of 1000mg q24)
Calculated AUC (mcg*h/mL): 457
Calculated ke: 0.0377
Calculated half life (H): 18.4
Calculated Vd (L): 57.9
Calculated Vanc CL (ml/min): 36
- Dosing Plan
Continue: vanc 1000mg q24
- Monitoring Plan
No level(s) ordered at this time: .
Level(s) appropriate: Recheck trough at minimum of weekly intervals, Repeat sooner for changes in renal function or clinical status
Next Level Due (Date): ~04/26
- Follow Up
Pharmacy will continue to follow.
Vancomycin Follow UP
- -
Patient Age: 89
Patient Sex: Male
Vancomycin Day #: 5
Indication: Bacteremia
Requesting Provider: Dr. Burr/Dr Bermeo
Pertinent Antimicrobial Allergies:
sulfonamide antibiotics - throat closes; swelling
Height / Weight:
Height 5 ft 8 in
Actual Weight 65.771 kg
Pertinent Past Medical History: DM 2
- Vital Signs / Lab Results
Temp Pulse Resp BP Pulse Ox
97.8 F 88 19 127/85 97
04/20/24 03:00 04/20/24 08:02 04/20/24 03:00 04/20/24 08:02 04/20/24 03:00
Lab Results - Hematology
04/18/24 04/19/24 04/20/24
08:09 06:26 06:01
WBC 21.6 H 22.8 H 20.2 H
Lab Results - Chemistry
04/18/24 04/19/24 04/20/24
08:09 06:26 06:01
BUN 33 H 29 H 29 H
Creatinine 0.9 0.9 0.9
Estimated Creat Clear 53 55 53
Microbiology Results
04/15/24 14:09 Blood Culture - Preliminary
Blood/Venous Diptheroids
Gram Stain - Final
04/15/24 13:45 Blood Culture - Final
Blood/Venous Diptheroids
Gram Stain - Final
04/14/24 12:57 Blood Culture - Preliminary
Blood/Venous Diptheroids
Gram Stain - Preliminary
04/17/24 11:21 Blood Culture - Preliminary
Blood/Venous No Growth in 48 hours- Final report to follow
04/17/24 10:44 Blood Culture - Preliminary
Blood/Venous No Growth in 48 hours- Final report to follow
Therapeutic Drug Monitoring
Vancomycin Peak 26.4 ug/ml (18-26) H 04/19/24 08:27
Vancomycin Trough 11.7 ug/ml (5-20) 04/20/24 06:01
[2024-04-20 11:00] VITALS: BP 139/78
--- NOTE | 2024-04-20 11:58 | W.PN.HOSP.TC ---
Today's Communication/Plan
-
Await for final susceptibility results
Continue with IV vancomycin
Monitor glucose
Change Tylenol to 3 times daily
Out of bed /therapy
Assessment / Plan
Assessment / Plan
Physical Exam
General: No Apparent Distress and Comfortable
HEENT: Moist mucous membranes and Atraumatic
Respiratory: Clear
Cardiac: S1/S2 and Irregular Rhythm, no tachycardia. +murmur,
GI: Soft, Non Tender and Non Distended
Musculoskeletal: No Clubbing, No Cyanosis, ++ edema in both lower legs. R1st no further erythema. No lumbar step off or TTP.
Skin: Warm; No Jaundice
Neuro: AO to self and surroundings, No Slurred Speech or Tremors
Psych: Calm and Intact Judgment/Insight
#Diptheroids bacteremia
#Epidural abscess L2 and L2-L3 Osteomyelitis/discitis
-Repeat culture also found to be positive
-bump in wbc could be due to steroids
-Await for susceptibility results. Patient on IV vancomycin
-TTE noted and negative for vegetation
-MRI lumbar results noted
-Repeat blood cultures ordered on 04/17 and are negative so far
-Off note, pt had recent extensive dental work done. Had some mild bleeding post procedure for few days.
-Neurosurgery consulted with no plan for surgical intervention.
-ID recs
#Acute on chronic back pain
#Closed compression fracture of lumbar vertebrae
-Lumbar x-ray showed compression deformity of L1 with multilevel degenerative disease
-Follows in the outpatient setting for epidural steroid injections ( Dr Appiah)
-Acute worsening of back pain has limited his ability to work with PT here,
-c/w heating pad
-Tramadol made him lethargic, can restart low-dose Oxy if needed.
-Continue with [id number] Tylenol
-s/p TOÑO on 04/15/24.
-family asked for ortho input, ortho agreed to plan, last injected level: Left L4-L5 ) per ortho)
-PT/OT SNF
-Add MiraLAX to avoid constipation
# Edema in both legs, c/w dependent edema, c/w compression stockings, and s/p dose of Lasix.
#Gout flare
04/14, Seems to have developed right wrist pain with swelling/ red and tenderness , 2nd metacarpal bone base , likely gout, probably precipitated by Lasix dose
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
Inflammatory markers elevated. X-rays negative for fracture
Status post IV steroids. Monitor for improvement. Status post steroids 5D course.
# Anorexia, improving
Family does not want patient to be continued on Remeron.
c/w PPI
# Toxic metabolic encephalopathy likely secondary to hospital-acquired delirium versus pain medication was recommended versus melatonin
DC remeron and melatonin
Continue to reorient
Decrease oxycodone
Family at bedside
Unclear if history of cognitive impairment
#Elevated LFTs
likely due to steroid
No abdominal pain, monitor
#Permanent AF
-Nonvalvular, high [id number]; home medications include beta-leighton and Eliquis
-No known history of electrophysiologic interventions
-Presented in RVR, heart rate now WNL
#Primary Hypertension
-Home medication includes beta-leighton; no first-line agent
-No known history of hypertensive systemic disease
-Blood pressure currently elevated in the context of pain
-Will add on hydralazine as needed
#Dyslipidemia
-No known ASCVD history, remains on home statin therapy
#T2DM
-Home medications include metformin 500 mg twice daily
-Metformin restarted. started on mealtime insulin with ISS.
-S/p steroid course, glucose remains elevated at times
-Will continue with current regimen and monitor ISS requirements
-Check a1c at 7.9. POC might downtrend as off steroids.
#Moderate aortic stenosis
-TTE from 12/2023 with Peak/mean gradients 39/21 mmHg, SHARATH 2 cm
-Does have murmur consistent with aortic stenosis on exam
-Will need follow-up after discharge
CODE STATUS: DNR/DNI, confirmed with POA sonRohit.
DVT prophylaxis: Eliquis
PT/OT plan for SNF on discharge once medically stable.
Called son Florian to update but no response. Left voicemail.
Anticipated Discharge: > 48 hours
Subjective/Interval History
-
Date of Service: April 20, 2024
States of intermittent back pain
remains afebrile
Objective Data
-
Labs:
Laboratory Results
04/20/24
06:01
WBC 20.2 H
Hgb 11.5 L
Hct 34.7 L
Plt Count 410 H
Sodium 131 L
Potassium 4.7
Chloride 95 L
Carbon Dioxide 30
BUN 29 H
Creatinine 0.9
Glucose 131 H
Calcium 8.5
Vital Signs:
Vital Signs
Temp Pulse Resp BP Pulse Ox
97.6 F 88 16 127/85 97
04/20/24 07:50 04/20/24 08:02 04/20/24 07:50 04/20/24 08:02 04/20/24 07:50
I&O
04/19/24 04/20/24 04/21/24
06:59 06:59 06:59
Intake Total 930 / 930 1200 / 1200
Output Total 200 / 200 775 / 775
Balance 730 / 730 425 / 425
Data Reviewed
-
Total Time Spent with Patient (in minutes): 52
[2024-04-20 12:29] LABS: Glucose - Point of Care 111 mg/dl (70-99)
[2024-04-20] MEDS: NovoLIN R Flexpen SC (13:00)
--- NOTE | 2024-04-20 13:00 | PTCARENOTE ---
437-1, Kenneth Walker, Blood glucose is trending down. He has a poor appetite. He is eating some food but not much. He has a standing dose of novolin, 7 units AC. I'm concerned that it is too much given his reduced consumption. Do you want to adjust
that? His sugar is 111. I haven't given him his lunch time novolin yet. Dr notified. Ordered to hold standing dose of novolin.
[2024-04-20 15:08] VITALS: BP 134/84
[2024-04-20 16:56] LABS: Glucose - Point of Care 171 mg/dl (70-99)
[2024-04-20] MEDS: NOVOLOG FLEXPEN-MODERATE RESISTANCE 1 UNITS SC (16:56)
[2024-04-20] MEDS: CRESTOR 20 MG PO (16:57)
[2024-04-20 19:00] VITALS: BP 134/74
[2024-04-20 22:04] LABS: Glucose - Point of Care 245 mg/dl (70-99)
[2024-04-20] MEDS: DULCOLAX 10 MG PO (22:35)
[2024-04-20] MEDS: MIRALAX 17 GRAMS PO (22:35)
[2024-04-20 23:00] VITALS: BP 119/74
[2024-04-21 03:00] VITALS: BP 122/79
[2024-04-21] MEDS: VANCOCIN 200 IV (05:03)
[2024-04-21 06:00] VITALS: BMI 22.5
[2024-04-21 07:05] LABS: Glucose - Point of Care 270 mg/dl (70-99)
[2024-04-21 07:40] VITALS: BP 126/68
[2024-04-21 07:57] LABS: Hemoglobin 12.7 g/dL (13.0-18.0); Mean Corp Hgb Conc. 33.4 g/dL (33.0-37.0); Mean Corpuscular Hgb 29.1 pg (27.0-31.0); Mean Corpuscular Volume 87.2 fL (80.0-94.0); Mean Platelet Volume 9.6 fL (7.4-10.4); Platelet Count 458 10^3/uL (130-400); Red Blood Cell Count 4.36 10^6/uL (4.70-6.10); Red Cell Dist. Width 14.1 % (11.5-14.5); White Blood Cell Count 22.1 10^3/uL (4.8-10.8)
[2024-04-21] MEDS: ZESTRIL 10 MG PO (08:07)
[2024-04-21] MEDS: PROTONIX 40 MG PO (08:08)
[2024-04-21] MEDS: TYLENOL 1000 MG PO ×3 (08:08→21:34)
[2024-04-21] MEDS: LOPRESSOR 50 MG PO ×2 (08:09→20:30)
[2024-04-21] MEDS: GLUCOPHAGE 500 MG PO ×2 (08:09→17:23)
[2024-04-21] MEDS: ELIQUIS 5 MG PO ×2 (08:09→20:30)
[2024-04-21] MEDS: ZYLOPRIM 200 MG PO (08:10)
[2024-04-21] MEDS: NOVOLOG FLEXPEN-MODERATE RESISTANCE 5 UNITS SC (08:12)
[2024-04-21 08:22] LABS: Blood Urea Nitrogen 30 mg/dl (9-20); Calcium 8.2 mg/dl (8.4-10.2); Carbon Dioxide 29 mmol/L (22-30); Chloride 92 mmol/L (98-107); Estimated Creatinine Clearance 61 ml/min; Glucose 249 mg/dl (70-99); Potassium 4.3 mmol/L (3.5-5.1); Sodium 129 mmol/L (135-145); eGFR > 60.00
--- NOTE | 2024-04-21 09:22 | PHA.VAN.FU ---
Vancomycin Assessment / Plan
- Assessment
Renal Function: Stable
WBC's are: Stable
In the past 24 hrs, patient has been: Afebrile
- Dosing Plan
Continue: vancomycin 1000mg q24h
- Monitoring Plan
No level(s) ordered at this time: .
Level(s) appropriate: Recheck trough at minimum of weekly intervals, Repeat sooner for changes in renal function or clinical status
Next Level Due (Date): ~04/26
- Follow Up
Pharmacy will continue to follow.
Vancomycin Follow UP
- -
Patient Age: 89
Patient Sex: Male
Vancomycin Day #: 6
Indication: Bacteremia
Requesting Provider: Dr. Burr/Dr Bermeo
Pertinent Antimicrobial Allergies:
sulfonamide antibiotics - throat closes; swelling
Height / Weight:
Height 5 ft 8 in
Actual Weight 67.086 kg
Pertinent Past Medical History: DM 2
- Vital Signs / Lab Results
Temp Pulse Resp BP Pulse Ox
97.7 F 97 18 126/68 98
04/21/24 07:40 04/21/24 08:07 04/21/24 07:40 04/21/24 08:07 04/21/24 07:40
Lab Results - Hematology
04/19/24 04/20/24 04/21/24
06:26 06:01 06:35
WBC 22.8 H 20.2 H 22.1 H
Lab Results - Chemistry
04/19/24 04/20/24 04/21/24
06:26 06:01 06:35
BUN 29 H 29 H 30 H
Creatinine 0.9 0.9 0.8
Estimated Creat Clear 55 53 61
Microbiology Results
04/15/24 14:09 Blood Culture - Final
Blood/Venous Diptheroids
Gram Stain - Final
04/17/24 11:21 Blood Culture - Preliminary
Blood/Venous No Growth in 72 hours- Final report to follow
04/17/24 10:44 Blood Culture - Preliminary
Blood/Venous No Growth in 72 hours- Final report to follow
04/15/24 13:45 Blood Culture - Final
Blood/Venous Diptheroids
Gram Stain - Final
04/14/24 12:57 Blood Culture - Preliminary
Blood/Venous Diptheroids
Gram Stain - Preliminary
Therapeutic Drug Monitoring
Vancomycin Peak 26.4 ug/ml (18-26) H 04/19/24 08:27
Vancomycin Trough 11.7 ug/ml (5-20) 04/20/24 06:01
[2024-04-21 09:29] LABS: % Basophils 0.2 % (0-2); % Eosinophils 0.1 % (0-6); % Immature Granulocytes 2.1 % (0-0.5); % Monocytes 4.8 % (1.7-9.3); % Neutrophils 90.8 % (42.2-75.2); Absolute Basophils 0.1 10^3/uL (0-0.2); Absolute Immature Granulocytes 0.5 10^3/uL (0-0.05); Absolute Lymphocytes 0.4 10^3/uL (1.2-3.4); Absolute Monocytes 1.1 10^3/uL (0.1-0.6); Absolute Neutrophils 20.1 10^3/uL (1.4-6.5); Nucleated Red Blood Cells % 0 % (-)
[2024-04-21 11:19] VITALS: BP 117/69
[2024-04-21 11:31] LABS: Glucose - Point of Care 228 mg/dl (70-99)
--- NOTE | 2024-04-21 13:18 | W.PN.HOSP.TC ---
Today's Communication/Plan
-
IV vancomycin
OOB/PT
ID recs
SNF once medically ready
Assessment / Plan
Assessment / Plan
Physical Exam
General: No Apparent Distress and Comfortable
HEENT: Moist mucous membranes and Atraumatic
Respiratory: Clear
Cardiac: S1/S2 and Irregular Rhythm, no tachycardia. +murmur,
GI: Soft, Non Tender and Non Distended
Musculoskeletal: No Clubbing, No Cyanosis,, edema in leg/feet almost resolved. No erythema or swelling of R 1st MTP joint.
Skin: Warm; No Jaundice
Neuro: AO to self and surroundings, No Slurred Speech or Tremors
Psych: Calm and Intact Judgment/Insight
#Diptheroids bacteremia
#Epidural abscess L2 and L2-L3 Osteomyelitis/discitis
-Repeat culture also found to be positive
-bump in wbc could be due to steroids
-Await for susceptibility results. Patient on IV vancomycin. Vancomycin trough normal.
-TTE noted and negative for vegetation
-MRI lumbar results noted
-Repeat blood cultures ordered on 04/17 and are negative so far
-Off note, pt had recent extensive dental work done. Had some mild bleeding post procedure for few days.
-Neurosurgery consulted with no plan for surgical intervention.
-ID recs
#Acute on chronic back pain
#Closed compression fracture of lumbar vertebrae
-Lumbar x-ray showed compression deformity of L1 with multilevel degenerative disease
-Follows in the outpatient setting for epidural steroid injections ( Dr Appiha)
-Acute worsening of back pain has limited his ability to work with PT here,
-c/w heating pad
-Tramadol made him lethargic, can restart low-dose Oxy if needed.
-Continue with [id number] Tylenol
-s/p TOÑO on 04/15/24.
-family asked for ortho input, ortho agreed to plan, last injected level: Left L4-L5 ) per ortho)
-PT/OT SNF
-Add MiraLAX to avoid constipation
# Edema in both legs, c/w dependent edema, c/w compression stockings, and s/p dose of Lasix.
#Gout flare
04/14, Seems to have developed right wrist pain with swelling/ red and tenderness , 2nd metacarpal bone base , likely gout, probably precipitated by Lasix dose
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
Inflammatory markers elevated. X-rays negative for fracture
Status post IV steroids. Monitor for improvement. Status post steroids 5D course.
# Anorexia, improving
Family does not want patient to be continued on Remeron.
c/w PPI
# Toxic metabolic encephalopathy likely secondary to hospital-acquired delirium versus pain medication was recommended versus melatonin
DC remeron and melatonin
Continue to reorient
Decrease oxycodone
Family at bedside
Unclear if history of cognitive impairment
#Elevated LFTs
likely due to steroid
No abdominal pain, monitor
#Permanent AF
-Nonvalvular, high [id number]; home medications include beta-leighton and Eliquis
-No known history of electrophysiologic interventions
-Presented in RVR, heart rate now WNL
#Primary Hypertension
-Home medication includes beta-leighton; no first-line agent
-No known history of hypertensive systemic disease
-Blood pressure currently elevated in the context of pain
-Will add on hydralazine as needed
#Dyslipidemia
-No known ASCVD history, remains on home statin therapy
#T2DM
-Home medications include metformin 500 mg twice daily
-Metformin restarted. hold mealtime insulin as with poor appetite at times
-Will continue with current regimen and monitor ISS requirements
-Check a1c at 7.9.
#Moderate aortic stenosis
-TTE from 12/2023 with Peak/mean gradients 39/21 mmHg, SHARATH 2 cm
-Does have murmur consistent with aortic stenosis on exam
-Will need follow-up after discharge
CODE STATUS: DNR/DNI, confirmed with POA son, Rohit.
DVT prophylaxis: Eliquis
PT/OT plan for SNF on discharge once medically stable.
d/w with son at bedside in details.
Anticipated Discharge: > 48 hours
Subjective/Interval History
-
Date of Service: April 21, 2024
sitting in chair
states of intermittent back pain
Objective Data
-
Labs:
Laboratory Results
04/21/24
06:35
WBC 22.1 H
Hgb 12.7 L
Hct 38.0 L
Plt Count 458 H
Sodium 129 L
Potassium 4.3
Chloride 92 L
Carbon Dioxide 29
BUN 30 H
Creatinine 0.8
Glucose 249 H
Calcium 8.2 L
Vital Signs:
Vital Signs
Temp Pulse Resp BP Pulse Ox
97.4 F 82 18 117/69 96
04/21/24 11:19 04/21/24 11:19 04/21/24 11:19 04/21/24 11:19 04/21/24 11:19
I&O
04/20/24 04/21/24 04/22/24
06:59 06:59 06:59
Intake Total 1200 / 1200 1130 / 1130
Output Total 775 / 775 350 / 350 500 / 500
Balance 425 / 425 780 / 780 -500 / -500
[2024-04-21] MEDS: NOVOLOG FLEXPEN-MODERATE RESISTANCE 3 UNITS SC (13:40)
--- NOTE | 2024-04-21 15:08 | CM ---
CM reviewed chart, plan remains for patient to discharge to [facility] when medically stable, will need insurance authorization. Patient remains on IV antibiotics. CM will continue to follow for all discharge planning needs.
Plan; [facility] when medically stable, will need insurance auth.
[2024-04-21 15:51] VITALS: BP 160/84
[2024-04-21 16:32] LABS: Glucose - Point of Care 121 mg/dl (70-99)
[2024-04-21] MEDS: NOVOLOG FLEXPEN-MODERATE RESISTANCE SC (16:46)
[2024-04-21] MEDS: CRESTOR 20 MG PO (17:23)
[2024-04-21 19:35] VITALS: BP 120/78
[2024-04-21] MEDS: DULCOLAX PO (21:15)
[2024-04-21] MEDS: MIRALAX PO (21:15)
[2024-04-21 22:29] LABS: Glucose - Point of Care 215 mg/dl (70-99)
[2024-04-21 23:35] VITALS: BP 124/80
[2024-04-22] VITALS (8 sets, daily range): BP systolic 114–147; BP diastolic 59–86; PULSE 73–135; O2SAT 96; BMI 21.6
[2024-04-22] MEDS: VANCOCIN 200 IV (05:13)
[2024-04-22 07:17] LABS: Glucose - Point of Care 194 mg/dl (70-99)
[2024-04-22 08:02] LABS: % Basophils 0.2 % (0-2); % Eosinophils 0.1 % (0-6); % Immature Granulocytes 2.2 % (0-0.5); % Lymphocytes 2.1 % (20.5-51.1); % Monocytes 5.3 % (1.7-9.3); % Neutrophils 90.1 % (42.2-75.2); Absolute Immature Granulocytes 0.4 10^3/uL (0-0.05); Absolute Lymphocytes 0.4 10^3/uL (1.2-3.4); Absolute Neutrophils 17.6 10^3/uL (1.4-6.5); Hematocrit 35.7 % (39.0-52.0); Hemoglobin 11.9 g/dL (13.0-18.0); Mean Corp Hgb Conc. 33.3 g/dL (33.0-37.0); Mean Corpuscular Hgb 29.1 pg (27.0-31.0); Mean Corpuscular Volume 87.3 fL (80.0-94.0); Mean Platelet Volume 9.3 fL (7.4-10.4); Nucleated Red Blood Cells % 0 % (-); Platelet Count 449 10^3/uL (130-400); Red Blood Cell Count 4.09 10^6/uL (4.70-6.10); Red Cell Dist. Width 14.3 % (11.5-14.5); White Blood Cell Count 19.6 10^3/uL (4.8-10.8)
[2024-04-22 08:55] LABS: Blood Urea Nitrogen 22 mg/dl (9-20); Calcium 8.4 mg/dl (8.4-10.2); Carbon Dioxide 25 mmol/L (22-30); Chloride 95 mmol/L (98-107); Estimated Creatinine Clearance 66 ml/min; Glucose 202 mg/dl (70-99); Potassium 4.4 mmol/L (3.5-5.1); Sodium 128 mmol/L (135-145); eGFR > 60.00
[2024-04-22] MEDS: NOVOLOG FLEXPEN-MODERATE RESISTANCE 1 UNITS SC (09:15)
[2024-04-22] MEDS: TYLENOL 1000 MG PO ×3 (09:16→22:14)
[2024-04-22] MEDS: ZESTRIL 10 MG PO (09:16)
[2024-04-22] MEDS: ZYLOPRIM 200 MG PO (09:16)
[2024-04-22] MEDS: ELIQUIS 5 MG PO ×2 (09:16→20:37)
[2024-04-22] MEDS: LOPRESSOR 50 MG PO ×2 (09:16→20:37)
[2024-04-22] MEDS: PROTONIX 40 MG PO (09:16)
[2024-04-22] MEDS: GLUCOPHAGE PO (09:20)
--- NOTE | 2024-04-22 10:14 | PHA.VAN.FU ---
Vancomycin Assessment / Plan
- Assessment
Renal Function: Stable
WBC's are: Trending Down (22.1->19.6)
In the past 24 hrs, patient has been: Afebrile
Concomitant Antimicrobials: none
- Dosing Plan
Continue: vancomycin 1000 mg q24h
- Monitoring Plan
No level(s) ordered at this time: .
Level(s) appropriate: Recheck trough at minimum of weekly intervals, Repeat sooner for changes in renal function or clinical status
Next Level Due (Date): around 04/26
- Follow Up
Pharmacy will continue to follow.
Vancomycin Follow UP
- -
Patient Age: 89
Patient Sex: Male
Vancomycin Day #: 7
Indication: Bacteremia
Requesting Provider: Dr. Burr/Dr Bermeo
Pertinent Antimicrobial Allergies:
sulfonamide antibiotics - throat closes; swelling
Height / Weight:
Height 5 ft 8 in
Actual Weight 64.41 kg
Pertinent Past Medical History: DM 2
- Vital Signs / Lab Results
Temp Pulse Resp BP Pulse Ox
98.2 F 91 18 114/68 94
04/22/24 07:00 04/22/24 07:00 04/22/24 07:00 04/22/24 07:00 04/22/24 07:00
Lab Results - Hematology
04/20/24 04/21/24 04/22/24
06:01 06:35 06:23
WBC 20.2 H 22.1 H 19.6 H
Lab Results - Chemistry
04/20/24 04/21/24 04/22/24
06:01 06:35 06:23
BUN 29 H 30 H 22 H
Creatinine 0.9 0.8 0.7
Estimated Creat Clear 53 61 66
Microbiology Results
04/14/24 12:57 Blood Culture - Final
Blood/Venous Diptheroids
Gram Stain - Final
04/17/24 11:21 Blood Culture - Preliminary
Blood/Venous No Growth in 4 days- Final report to follow
04/17/24 10:44 Blood Culture - Preliminary
Blood/Venous No Growth in 4 days- Final report to follow
04/15/24 14:09 Blood Culture - Final
Blood/Venous Diptheroids
Gram Stain - Final
04/15/24 13:45 Blood Culture - Final
Blood/Venous Diptheroids
Gram Stain - Final
Therapeutic Drug Monitoring
Vancomycin Peak 26.4 ug/ml (18-26) H 04/19/24 08:27
Vancomycin Trough 11.7 ug/ml (5-20) 04/20/24 06:01
--- NOTE | 2024-04-22 10:55 | WOUNDNOTE ---
WON RN note: Patient admitted with closed compression fracture of lumbar vertebra.
See H&P for complete history. Lives independently, caregivers daily.
PMH: Gout, chronic back pain-steroid injections A Fib, HTN, MASD buttocks.
Wound Location and type/assessment: Patient admitted with: B/L buttocks MASD suspected, rather than true pressure. Patient confirmed appetite has been poor, able to drink one ensure daily, increased weakness. Son at bedside states 1 wk ago he was
driving self and ambulating independently. Patient and son confirmed he has been sitting allot recently due to back pain, using barrier cream for buttocks skin breakdown at home. Heels blanchable red, tiny scab on L Achilles, suspect from shoe
rubbing. Assessed patient at same time PT ambulated patient to BR and hallway with walker.
Appetite:Poor, encouraged protein in diet.
Pressure redistribution devices in place: Added air overly to bed, and air cushion to chair. Instructed can take air cushion when discharged. Pressure ulcer prevention measures reviewed with patient, he states he understands.
Plan: Silicone foam applied to buttocks, offloading cushion, turning schedule.
Will confirm orders with hospitalist and update nurse.
Updated care plan and will follow as needed.
Note to case management of equipment requested for discharge: Spoke to CM aware that air mattress recommended at SNF.
Recommend follow up at wound care center upon discharge.
--- NOTE | 2024-04-22 11:38 | W.PN.HOSP.TC ---
Today's Communication/Plan
-
f/w ID recommendations
Resume Remeron to help with appetite, short course Reglan.
Assessment / Plan
Assessment / Plan
Physical Exam
General: No Apparent Distress and Comfortable
HEENT: Moist mucous membranes and Atraumatic
Respiratory: Clear
Cardiac: S1/S2 and Irregular Rhythm, no tachycardia. +murmur,
GI: Soft, Non Tender and Non Distended
Musculoskeletal: No Clubbing, No Cyanosis,, edema in leg/feet almost resolved. No erythema or swelling of R 1st MTP joint.
Skin: Warm; No Jaundice
Neuro: AO to self and surroundings, No Slurred Speech or Tremors
Psych: Calm and Intact Judgment/Insight
#Diptheroids bacteremia
#Epidural abscess L2 and L2-L3 Osteomyelitis/discitis
-Repeat culture negative
-Await for ID decision about final recommendations
-TTE noted and negative for vegetation
-MRI lumbar results noted
-Off note, pt had recent extensive dental work done. Had some mild bleeding post procedure for few days.
-Neurosurgery consulted with no plan for surgical intervention.
-ID recs
#Acute on chronic back pain
#Closed compression fracture of lumbar vertebrae
-Lumbar x-ray showed compression deformity of L1 with multilevel degenerative disease
-Follows in the outpatient setting for epidural steroid injections ( Dr Appiah)
-Acute worsening of back pain has limited his ability to work with PT here,
-c/w heating pad
-Tramadol made him lethargic, can restart low-dose Oxy if needed.
-Continue with [id number] Tylenol
-s/p TOÑO on 04/15/24.
-family asked for ortho input, ortho agreed to plan, last injected level: Left L4-L5 ) per ortho)
-PT/OT SNF
-Added MiraLAX to avoid constipation
# Edema in both legs, c/w dependent edema, c/w compression stockings, and s/p dose of Lasix.
#Gout flare
04/14, Seems to have developed right wrist pain with swelling/ red and tenderness , 2nd metacarpal bone base , likely gout, probably precipitated by Lasix dose
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
Inflammatory markers elevated. X-rays negative for fracture
Status post IV steroids. Status post steroids 5D course.
# Anorexia,
Patient was started on low-dose Remeron which might have helped with his appetite. Unfortunately it was discontinued after a few doses upon family concern regarding lethargy. Discussed with the son bedside. Resume Remeron at at night. Low-dose
Reglan for short course before meals
c/w PPI
# Toxic metabolic encephalopathy likely secondary to hospital-acquired delirium versus pain medication was recommended versus melatonin
DC remeron and melatonin
Continue to reorient
Decrease oxycodone
Family at bedside
Unclear if history of cognitive impairment
#Elevated LFTs
likely due to steroid
No abdominal pain, monitor
#Permanent AF
-Nonvalvular, high [id number]; home medications include beta-leighton and Eliquis
-No known history of electrophysiologic interventions
-Presented in RVR, heart rate now WNL
#Primary Hypertension
-Home medication includes beta-leighton; no first-line agent
-No known history of hypertensive systemic disease
-Blood pressure currently elevated in the context of pain
-Will add on hydralazine as needed
#Dyslipidemia
-No known ASCVD history, remains on home statin therapy
#T2DM
-Home medications include metformin 500 mg twice daily
-Metformin restarted. hold mealtime insulin as with poor appetite at times
-Will continue with current regimen and monitor ISS requirements
-Check a1c at 7.9.
#Moderate aortic stenosis
-TTE from 12/2023 with Peak/mean gradients 39/21 mmHg, SHARATH 2 cm
-Does have murmur consistent with aortic stenosis on exam
-Will need follow-up after discharge
CODE STATUS: DNR/DNI, confirmed with POA son, Rohit.
DVT prophylaxis: Eliquis
PT/OT plan for SNF on discharge once medically stable.
Total time spent to see the patient, examine the patient, review data and lab results, discuss the treatment plan with patient, nursing staff around 55 minutes
Anticipated Discharge: Within 24 hours
Subjective/Interval History
-
Date of Service: April 22, 2024
Objective Data
-
Labs:
Laboratory Results
04/22/24
06:23
WBC 19.6 H
Hgb 11.9 L
Hct 35.7 L
Plt Count 449 H
Sodium 128 L
Potassium 4.4
Chloride 95 L
Carbon Dioxide 25
BUN 22 H
Creatinine 0.7
Glucose 202 H
Calcium 8.4
Vital Signs:
Vital Signs
Temp Pulse Resp BP Pulse Ox
97.8 F 103 20 125/74 98
04/22/24 11:00 04/22/24 11:00 04/22/24 11:00 04/22/24 11:00 04/22/24 11:00
I&O
04/21/24 04/22/24 04/23/24
06:59 06:59 06:59
Intake Total 1130 / 1130 800 / 800
Output Total 350 / 350 800 / 800
Balance 780 / 780 0 / 0
[2024-04-22 12:04] LABS: Glucose - Point of Care 260 mg/dl (70-99)
[2024-04-22] MEDS: REGLAN 5 MG IV ×2 (13:24→17:17)
[2024-04-22] MEDS: NOVOLOG FLEXPEN-MODERATE RESISTANCE 5 UNITS SC (13:26)
--- NOTE | 2024-04-22 14:47 | CM ---
Patient seen bedside with son in room.
PT/OT recommending skilled rehab
Per son, he thinks patient will be here a few more days.
Patient and son would prefer [facility].
Plan: skilled rehab once medically stable, patient will require insurance auth.
--- NOTE | 2024-04-22 16:18 | W.PN.ID1 ---
Date of Service
Date of Service: April 22, 2024
Today's Communication
Continue antibiotics.
Assessment / Plan
Bactermeia with diphtheroids - multiple sets
-Although usually a contaminant, multiple blood cultures with Corynebacterium spp. raises the specter of possible real infection.
Leukocytosis
-Possible steroid effect
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
Elevated ESR/CRP
Chronic back pain
- s/p recent steroid injection
Essential hypertension
atrial fibrillation on Eliquis
hyperlipidemia
aortic valve insufficiency
thrombophilia
asthma
T2DM
CHF
COPD
Urinary incontinence
GERD
Recommendations:
Continue with empiric vancomycin for the present. Follow Vanco levels closely to prevent renal toxicity.
Awaiting results from reference lab regarding isolate identification and susceptibility testing.
Repeat blood cultures without growth
Monitor white count temperature curve.
Will need a 6-8 week course of IV antibiotics.
����������������������������������������������������������
Chief Complaint
-: Bacteremia and Other (Epidural abscess. Vertebral osteomyelitis/discitis)
Subjective / Review of Systems
Patient seen and examined. Reports ongoing low back pain which seems to be somewhat increasing. No fevers or chills.
Review of Systems: No Fever and No Chills
Vital Signs / Physical Exam
Vital Signs
Vital Signs
Temp Pulse Resp BP Pulse Ox
97.8 F 103 20 125/74 98
04/22/24 11:00 04/22/24 11:00 04/22/24 11:00 04/22/24 11:00 04/22/24 11:00
Physical Exam
Constitutional: No Acute Distress, Comfortable, Chronically Ill and Non-toxic
Eyes: Sclera Anicteric
Pulmonary: Clear and Non Labored
Gastrointestinal: Soft and Non Distended
Skin: Negative Rash or Jaundice
Neurological: Awake and Alert
Psychological: Calm
Objective Data
Lab Data
Lab Results
04/22/24 06:23
04/22/24 06:23
ESR 51 mm/hour (0-20) H 04/14/24 10:25
PT 16.7 Sec (11.4-14.6) H 04/15/24 07:59
INR 1.32 04/15/24 07:59
Estimated Creat Clear 66 ml/min 04/22/24 06:23
Total Bilirubin 0.7 mg/dl (0.2-1.3) 04/15/24 06:56
AST 60 U/L (17-59) H 04/15/24 06:56
ALT 81 U/L (0-50) H 04/15/24 06:56
Alkaline Phosphatase 253 U/L (38-126) H 04/15/24 06:56
C-Reactive Protein > 270.00 mg/L (0.0-10.00) H 04/14/24 10:25
Most recent labs reviewed.
Micro Results:
04/17/24 11:21 Blood Culture - Final
Blood/Venous No Growth - Final Report
04/17/24 10:44 Blood Culture - Final
Blood/Venous No Growth - Final Report
04/14/24 12:57 Blood Culture - Final
Blood/Venous Diptheroids
Gram Stain - Final
04/15/24 14:09 Blood Culture - Final
Blood/Venous Diptheroids
Gram Stain - Final
04/15/24 13:45 Blood Culture - Final
Blood/Venous Diptheroids
Gram Stain - Final
04/16/24 09:35 Nasal Screen MRSA (PCR) - Final
Nose MRSA not detected - performed by PCR methodology.
04/08/24 07:17 Influenza Types A & B (ALISHA) - Final
Nasal Swab Negative for Influenza A & B, NAAT
Negative results must be combined with clinical observations
and patient history.
Nucleic Acid Amplification test (NAAT)performed on the
[employer] platform.
Imaging:
04/18/2024 MRI lumbar spine with and without contrast: Active discitis/osteomyelitis at L2/3. Associated small epidural abscess at the L2 level. Please see full dictation for additional detail.
04/16/2024 ECHO (TTE): Normal LV ventricular size. No regional wall motion abnormalities. EF approximately 55%. Mild to moderate mitral regurgitation. Mild to moderate tricuspid regurgitation. Moderate aortic stenosis. No vegetation noted.
[2024-04-22 17:04] LABS: Glucose - Point of Care 247 mg/dl (70-99)
[2024-04-22] MEDS: CRESTOR 20 MG PO (17:16)
[2024-04-22] MEDS: NOVOLOG FLEXPEN-MODERATE RESISTANCE 3 UNITS SC (17:17)
[2024-04-22] MEDS: TYLENOL PO (21:15)
[2024-04-22] MEDS: REMERON PO (21:15)
[2024-04-22] MEDS: MIRALAX PO (21:39)
[2024-04-22] MEDS: DULCOLAX PO (21:39)
[2024-04-22 22:10] LABS: Glucose - Point of Care 208 mg/dl (70-99)
[2024-04-22] MEDS: REMERON 7.5 MG PO (22:14)
[2024-04-23] VITALS (7 sets, daily range): BP systolic 110–154; BP diastolic 63–85; BMI 22.1
[2024-04-23] MEDS: VANCOCIN 200 IV (05:41)
[2024-04-23 07:45] LABS: Glucose - Point of Care 199 mg/dl (70-99)
[2024-04-23 08:15] LABS: % Basophils 0.1 % (0-2); % Immature Granulocytes 1.4 % (0-0.5); % Lymphocytes 1.4 % (20.5-51.1); % Neutrophils 92.1 % (42.2-75.2); Absolute Immature Granulocytes 0.3 10^3/uL (0-0.05); Absolute Lymphocytes 0.3 10^3/uL (1.2-3.4); Absolute Neutrophils 19.1 10^3/uL (1.4-6.5); Hematocrit 35.3 % (39.0-52.0); Hemoglobin 12.2 g/dL (13.0-18.0); Mean Corp Hgb Conc. 34.6 g/dL (33.0-37.0); Mean Corpuscular Hgb 29.5 pg (27.0-31.0); Mean Corpuscular Volume 85.5 fL (80.0-94.0); Mean Platelet Volume 9.1 fL (7.4-10.4); Nucleated Red Blood Cells % 0 % (-); Platelet Count 442 10^3/uL (130-400); Red Blood Cell Count 4.13 10^6/uL (4.70-6.10); Red Cell Dist. Width 14.5 % (11.5-14.5); White Blood Cell Count 20.8 10^3/uL (4.8-10.8)
--- NOTE | 2024-04-23 08:48 | W.PN.ID1 ---
Date of Service
Date of Service: April 23, 2024
Today's Communication
Continue antibiotics
Assessment / Plan
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
-Although usually a contaminant, multiple blood cultures with Corynebacterium stratum suggests real infection.
Leukocytosis
-Possible steroid effect
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
Elevated ESR/CRP
Chronic back pain
- s/p recent steroid injection
Essential hypertension
atrial fibrillation on Eliquis
hyperlipidemia
aortic valve insufficiency
thrombophilia
asthma
T2DM
CHF
COPD
Urinary incontinence
GERD
Recommendations:
Continue with vancomycin.
Follow Vanco levels closely to prevent renal toxicity.
Patient will need a 6 to 8-week course of antibiotics. (Through 05/28/24 to 06/11/24)
Repeat blood cultures without growth
Monitor white count temperature curve.
����������������������������������������������������������
Chief Complaint
-: Bacteremia and Other (Epidural abscess. Vertebral osteomyelitis/discitis)
Subjective / Review of Systems
Patient seen and examined. Reports some ongoing low back pain.
Review of Systems: No Fever and No Chills
Vital Signs / Physical Exam
Vital Signs
Vital Signs
Temp Pulse Resp BP Pulse Ox
97.3 F 102 16 144/80 97
04/23/24 07:35 04/23/24 07:35 04/23/24 07:35 04/23/24 07:35 04/23/24 07:35
Physical Exam
Constitutional: No Acute Distress, Comfortable, Chronically Ill and Non-toxic
Eyes: Sclera Anicteric
Pulmonary: Clear and Non Labored
Gastrointestinal: Soft and Non Distended
Skin: Negative Rash or Jaundice
Neurological: Awake and Alert
Psychological: Calm
Objective Data
Lab Data
Lab Results
04/23/24 07:51
ESR 51 mm/hour (0-20) H 04/14/24 10:25
PT 16.7 Sec (11.4-14.6) H 04/15/24 07:59
INR 1.32 04/15/24 07:59
Estimated Creat Clear 66 ml/min 04/22/24 06:23
Total Bilirubin 0.7 mg/dl (0.2-1.3) 04/15/24 06:56
AST 60 U/L (17-59) H 04/15/24 06:56
ALT 81 U/L (0-50) H 04/15/24 06:56
Alkaline Phosphatase 253 U/L (38-126) H 04/15/24 06:56
C-Reactive Protein > 270.00 mg/L (0.0-10.00) H 04/14/24 10:25
Most recent labs reviewed.
Micro Results:
04/17/24 11:21 Blood Culture - Final
Blood/Venous No Growth - Final Report
04/17/24 10:44 Blood Culture - Final
Blood/Venous No Growth - Final Report
04/14/24 12:57 Blood Culture - Final
Blood/Venous Diptheroids
Gram Stain - Final
04/15/24 14:09 Blood Culture - Final
Blood/Venous Diptheroids
Gram Stain - Final
04/15/24 13:45 Blood Culture - Final
Blood/Venous Diptheroids
Gram Stain - Final
04/16/24 09:35 Nasal Screen MRSA (PCR) - Final
Nose MRSA not detected - performed by PCR methodology.
04/08/24 07:17 Influenza Types A & B (ALISHA) - Final
Nasal Swab Negative for Influenza A & B, NAAT
Negative results must be combined with clinical observations
and patient history.
Nucleic Acid Amplification test (NAAT)performed on the
[employer] platform.
Imaging:
04/18/2024 MRI lumbar spine with and without contrast: Active discitis/osteomyelitis at L2/3. Associated small epidural abscess at the L2 level. Please see full dictation for additional detail.
04/16/2024 ECHO (TTE): Normal LV ventricular size. No regional wall motion abnormalities. EF approximately 55%. Mild to moderate mitral regurgitation. Mild to moderate tricuspid regurgitation. Moderate aortic stenosis. No vegetation noted.
[2024-04-23 08:52] LABS: Blood Urea Nitrogen 18 mg/dl (9-20); Calcium 8.5 mg/dl (8.4-10.2); Carbon Dioxide 28 mmol/L (22-30); Chloride 96 mmol/L (98-107); Estimated Creatinine Clearance 68 ml/min; Glucose 216 mg/dl (70-99); Potassium 3.7 mmol/L (3.5-5.1); Sodium 131 mmol/L (135-145); eGFR > 60.00
[2024-04-23] MEDS: NOVOLOG FLEXPEN-MODERATE RESISTANCE 1 UNITS SC (09:16)
[2024-04-23] MEDS: ZESTRIL 10 MG PO (09:16)
[2024-04-23] MEDS: TYLENOL 1000 MG PO ×3 (09:17→20:45)
[2024-04-23] MEDS: ELIQUIS 5 MG PO ×2 (09:17→20:45)
[2024-04-23] MEDS: ZYLOPRIM 200 MG PO (09:18)
[2024-04-23] MEDS: LOPRESSOR 50 MG PO ×2 (09:19→20:45)
[2024-04-23] MEDS: REGLAN 5 MG IV ×3 (09:19→17:35)
[2024-04-23] MEDS: PROTONIX 40 MG PO (09:21)
--- NOTE | 2024-04-23 09:29 | W.PN.HOSP.TC ---
Today's Communication/Plan
-
Hope dc in 1-2 days
Resume pre-meal insulin
Assessment / Plan
Assessment / Plan
Physical Exam
General: No Apparent Distress and Comfortable
HEENT: Moist mucous membranes and Atraumatic
Respiratory: Clear
Cardiac: S1/S2 and Irregular Rhythm, no tachycardia. +murmur,
GI: Soft, Non Tender and Non Distended
Musculoskeletal: No Clubbing, No Cyanosis,, edema in leg/feet almost resolved. No erythema or swelling of R 1st MTP joint.
Skin: Warm; No Jaundice
Neuro: AO to self and surroundings, No Slurred Speech or Tremors
Psych: Calm and Intact Judgment/Insight
#Diptheroids bacteremia
#Epidural abscess L2 and L2-L3 Osteomyelitis/discitis
-Repeat culture negative
-Await for ID decision about final recommendations
-TTE noted and negative for vegetation
-MRI lumbar results noted
-Off note, pt had recent extensive dental work done. Had some mild bleeding post procedure for few days.
-Neurosurgery consulted with no plan for surgical intervention.
-ID recs
#Acute on chronic back pain
#Closed compression fracture of lumbar vertebrae
-Lumbar x-ray showed compression deformity of L1 with multilevel degenerative disease
-Follows in the outpatient setting for epidural steroid injections ( Dr Appiah)
-Acute worsening of back pain has limited his ability to work with PT here,
-c/w heating pad
-Tramadol made him lethargic, can restart low-dose Oxy if needed.
-Continue with [id number] Tylenol
-s/p TOÑO on 04/15/24.
-family asked for ortho input, ortho agreed to plan, last injected level: Left L4-L5 ) per ortho)
-PT/OT SNF
-Added MiraLAX to avoid constipation
# Edema in both legs, c/w dependent edema, c/w compression stockings, and s/p dose of Lasix.
#Gout flare
04/14, Seems to have developed right wrist pain with swelling/ red and tenderness , 2nd metacarpal bone base , likely gout, probably precipitated by Lasix dose
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
Inflammatory markers elevated. X-rays negative for fracture
Status post IV steroids. Status post steroids 5D course.
# Anorexia,
Patient was started on low-dose Remeron which might have helped with his appetite. Unfortunately it was discontinued after a few doses upon family concern regarding lethargy. Discussed with the son bedside. Resumed Remeron at at night. Low-dose
Reglan for short course before meals
c/w PPI
# Toxic metabolic encephalopathy likely secondary to hospital-acquired delirium versus pain medication
Resolved
Patient has a very good social support and it is helping to reduce risk of delirium
#Elevated LFTs
likely due to steroid
No abdominal pain, monitor
#Permanent AF
-Nonvalvular, high [id number]; home medications include beta-leighton and Eliquis
-No known history of electrophysiologic interventions
-Presented in RVR, heart rate now WNL
#Primary Hypertension
-Home medication included beta-leighton, lisinopril.
#Dyslipidemia
-No known ASCVD history, remains on home statin therapy
#T2DM
-Home medications include metformin 500 mg twice daily
-Metformin restarted. h
Mealtime insulin was held due to poor appetite at times, now seems high blood glucose, will resume it but at 5 units for now. monitor ISS requirements
-Check a1c at 7.9.
#Moderate aortic stenosis
-TTE from 12/2023 with Peak/mean gradients 39/21 mmHg, SHARATH 2 cm
-Does have murmur consistent with aortic stenosis on exam
-Will need follow-up after discharge
CODE STATUS: DNR/DNI, confirmed with POA sonRohit.
DVT prophylaxis: Eliquis
PT/OT plan for SNF on discharge once medically stable.
Total time spent to see the patient, examine the patient, review data and lab results, discuss the treatment plan with patient, nursing staff around 55 minutes
Anticipated Discharge: 24 - 48 hours
Subjective/Interval History
-
Date of Service: April 23, 2024
Pain is less in his back
No fevers
no nausea, overall he felt it was a better day for him today
Objective Data
-
Labs:
Laboratory Results
04/23/24
07:51
WBC 20.8 H
Hgb 12.2 L
Hct 35.3 L
Plt Count 442 H
Sodium 131 L
Potassium 3.7
Chloride 96 L
Carbon Dioxide 28
BUN 18
Creatinine 0.7
Glucose 216 H
Calcium 8.5
Vital Signs:
Vital Signs
Temp Pulse Resp BP Pulse Ox
97.3 F 102 16 144/80 97
04/23/24 07:35 04/23/24 09:16 04/23/24 07:35 04/23/24 09:16 04/23/24 07:35
I&O
04/22/24 04/23/24 04/24/24
06:59 06:59 06:59
Intake Total 800 / 800 960 / 960
Output Total 800 / 800 500 / 500
Balance 0 / 0 460 / 460
--- NOTE | 2024-04-23 09:42 | PHA.VAN.FU ---
Vancomycin Assessment / Plan
- Assessment
Renal Function: Stable
WBC's are: Stable
In the past 24 hrs, patient has been: Afebrile
Concomitant Antimicrobials: none
- Dosing Plan
Continue: vancomycin 1000 mg q24h - began 04/17/24
- Monitoring Plan
Level(s) appropriate: Recheck trough at minimum of weekly intervals, Repeat sooner for changes in renal function or clinical status
Next Level Due (Date): ~ 04/26
- Follow Up
Pharmacy will continue to follow.
Vancomycin Follow UP
- -
Patient Age: 89
Patient Sex: Male
Vancomycin Day #: 8
Indication: Bacteremia
Requesting Provider: Dr. Burr/Dr Bermeo
Pertinent Antimicrobial Allergies:
sulfonamide antibiotics - throat closes; swelling
Height / Weight:
Height 5 ft 8 in
Actual Weight 65.998 kg
Pertinent Past Medical History: DM 2
- Vital Signs / Lab Results
Temp Pulse Resp BP Pulse Ox
97.3 F 102 16 144/80 97
04/23/24 07:35 04/23/24 09:16 04/23/24 07:35 04/23/24 09:16 04/23/24 07:35
Lab Results - Hematology
04/21/24 04/22/24 04/23/24
06:35 06:23 07:51
WBC 22.1 H 19.6 H 20.8 H
Lab Results - Chemistry
04/21/24 04/22/24 04/23/24
06:35 06:23 07:51
BUN 30 H 22 H 18
Creatinine 0.8 0.7 0.7
Estimated Creat Clear 61 66 68
Microbiology Results
04/17/24 11:21 Blood Culture - Final
Blood/Venous No Growth - Final Report
04/17/24 10:44 Blood Culture - Final
Blood/Venous No Growth - Final Report
04/14/24 12:57 Blood Culture - Final
Blood/Venous Diptheroids
Gram Stain - Final
04/15/24 14:09 Blood Culture - Final
Blood/Venous Diptheroids
Gram Stain - Final
Therapeutic Drug Monitoring
Vancomycin Peak 26.4 ug/ml (18-26) H 04/19/24 08:27
Vancomycin Trough 11.7 ug/ml (5-20) 04/20/24 06:01
[2024-04-23 12:11] LABS: Glucose - Point of Care 284 mg/dl (70-99)
[2024-04-23] MEDS: NOVOLOG FLEXPEN-MODERATE RESISTANCE 5 UNITS SC (12:31)
--- NOTE | 2024-04-23 14:07 | CM ---
Chart reviewed and per patient and son patient is in pain today, catalytic case operator reviewed patient's chart and physical therapy notes and recommendation is for skilled placement referral sent to [facility].
Plan; [facility] when stable, patient will need Auth.
[2024-04-23 17:33] LABS: Glucose - Point of Care 249 mg/dl (70-99)
[2024-04-23] MEDS: NovoLIN R Flexpen 5 UNITS SC (17:33)
[2024-04-23] MEDS: NOVOLOG FLEXPEN-MODERATE RESISTANCE 3 UNITS SC (17:34)
[2024-04-23] MEDS: CRESTOR 20 MG PO (17:37)
[2024-04-23] MEDS: DULCOLAX 10 MG PO (20:46)
[2024-04-23] MEDS: REMERON 7.5 MG PO (20:46)
[2024-04-23] MEDS: MIRALAX PO (20:47)
[2024-04-23 21:38] LABS: Glucose - Point of Care 277 mg/dl (70-99)
[2024-04-24 03:24] VITALS: BP 109/62
[2024-04-24] MEDS: VANCOCIN 200 IV (05:21)
[2024-04-24 06:00] VITALS: BMI 22.1
[2024-04-24 07:30] VITALS: BP 103/61
[2024-04-24 07:53] LABS: Glucose - Point of Care 189 mg/dl (70-99)
[2024-04-24] MEDS: NOVOLOG FLEXPEN-MODERATE RESISTANCE 1 UNITS SC (09:12)
--- NOTE | 2024-04-24 09:12 | W.PN.HOSP.TC ---
Today's Communication/Plan
-
.
Assessment / Plan
Assessment / Plan
Physical Exam
General: No Apparent Distress and Comfortable
HEENT: Moist mucous membranes and Atraumatic
Respiratory: Clear
Cardiac: S1/S2
GI: Soft, Non Tender and Non Distended
Musculoskeletal:No Cyanosis, no edema.
Skin: Warm; No Jaundice
Neuro: AO to self and surroundings, No Slurred Speech or Tremors
Psych: Calm and Intact Judgment/Insight
#Diptheroids bacteremia
#Epidural abscess L2 and L2-L3 Osteomyelitis/discitis
-Repeat culture negative
-Await for ID decision about final recommendations
-TTE noted and negative for vegetation
-MRI lumbar results noted
-Off note, pt had recent extensive dental work done. Had some mild bleeding post procedure for few days.
-Neurosurgery consulted with no plan for surgical intervention.
-ID recs
#Acute on chronic back pain
#Closed compression fracture of lumbar vertebrae
-Lumbar x-ray showed compression deformity of L1 with multilevel degenerative disease
-Follows in the outpatient setting for epidural steroid injections ( Dr Appiah)
-Acute worsening of back pain has limited his ability to work with PT here,
-c/w heating pad
-Tramadol made him lethargic, can restart low-dose Oxy if needed.
-Continue with [id number] Tylenol
-s/p TOÑO on 04/15/24.
-family asked for ortho input, ortho agreed to plan, last injected level: Left L4-L5 ) per ortho)
-PT/OT SNF
-Added MiraLAX to avoid constipation
# Edema in both legs, c/w dependent edema, c/w compression stockings, and s/p dose of Lasix.
#Gout flare
04/14, Seems to have developed right wrist pain with swelling/ red and tenderness , 2nd metacarpal bone base , likely gout, probably precipitated by Lasix dose
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
Inflammatory markers elevated. X-rays negative for fracture
Status post IV steroids. Status post steroids 5D course.
# Anorexia,
Patient was started on low-dose Remeron which might have helped with his appetite. Unfortunately it was discontinued after a few doses upon family concern regarding lethargy. Discussed with the son bedside. Resumed Remeron at at night. Low-dose
Reglan for short course before meals
c/w PPI
# Toxic metabolic encephalopathy likely secondary to hospital-acquired delirium versus pain medication
Resolved
Patient has a very good social support and it is helping to reduce risk of delirium
#Elevated LFTs
likely due to steroid
No abdominal pain, monitor
#Permanent AF
-Nonvalvular, high [id number]; home medications include beta-leighton and Eliquis
-No known history of electrophysiologic interventions
-Presented in RVR, heart rate now WNL
#Primary Hypertension
-Home medication included beta-leighton, lisinopril.
#Dyslipidemia
-No known ASCVD history, remains on home statin therapy
#T2DM
-Home medications include metformin 500 mg twice daily
-Metformin restarted. h
Mealtime insulin was held due to poor appetite at times, now seems high blood glucose, will resume it but at 5 units for now. monitor ISS requirements
-Check a1c at 7.9.
#Moderate aortic stenosis
-TTE from 12/2023 with Peak/mean gradients 39/21 mmHg, SHARATH 2 cm
-Does have murmur consistent with aortic stenosis on exam
-Will need follow-up after discharge
CODE STATUS: DNR/DNI, confirmed with POA sonRohit.
DVT prophylaxis: Eliquis
PT/OT plan for SNF on discharge once medically stable.
Total time spent to see the patient, examine the patient, review data and lab results, discuss the treatment plan with patient, family at bed side, nursing staff around 55 minutes
Anticipated Discharge: 24 - 48 hours
Subjective/Interval History
-
Date of Service: April 24, 2024
Pt denies pain but reports loss of appetite
Objective Data
-
Vital Signs:
Vital Signs
Temp Pulse Resp BP Pulse Ox
97.8 F 96 16 103/61 96
04/24/24 07:30 04/24/24 07:30 04/24/24 07:30 04/24/24 07:30 04/24/24 07:30
I&O
04/23/24 04/24/24 04/25/24
06:59 06:59 06:59
Intake Total 960 / 960 300 / 300
Output Total 500 / 500 300 / 300
Balance 460 / 460 0 / 0
[2024-04-24] MEDS: PROTONIX 40 MG PO (09:13)
[2024-04-24] MEDS: REGLAN 5 MG IV (09:13)
[2024-04-24] MEDS: NovoLIN R Flexpen 5 UNITS SC ×3 (09:13→17:11)
[2024-04-24] MEDS: ZESTRIL 10 MG PO (09:13)
[2024-04-24] MEDS: ELIQUIS 5 MG PO ×2 (09:13→20:38)
[2024-04-24] MEDS: LOPRESSOR 50 MG PO ×2 (09:14→20:37)
[2024-04-24] MEDS: ZYLOPRIM 200 MG PO (09:14)
[2024-04-24] MEDS: TYLENOL 1000 MG PO ×3 (09:14→20:38)
[2024-04-24 11:23] VITALS: BP 113/64
[2024-04-24 11:38] LABS: Vancomycin Peak 27.7 ug/ml (18-26)
--- NOTE | 2024-04-24 12:01 | PHA.VAN.FU ---
Vancomycin Assessment / Plan
- Assessment
Renal Function: No New Labs Today
In the past 24 hrs, patient has been: Afebrile
- Assessment - Therapeutic Drug Monitoring
Peak level was drawn: More than 3 hours after previous dose
- Dosing Plan
Continue: Vanc 1000mg q24
Dosing Comments: Dr. Dominguez requested levels today. Peak drawn 5hrs post dose. Not useable.
- Monitoring Plan
Peak Level: 04/25 at 0830
Trough Level: 04/26 at 0530
- Follow Up
Pharmacy will continue to follow.
Vancomycin Follow UP
- -
Patient Age: 89
Patient Sex: Male
Vancomycin Day #: 9
Indication: Bacteremia
Requesting Provider: Dr. Burr/Dr Bermeo
Pertinent Antimicrobial Allergies:
sulfonamide antibiotics - throat closes; swelling
Height / Weight:
Height 5 ft 8 in
Actual Weight 65.771 kg
Pertinent Past Medical History: DM 2
- Vital Signs / Lab Results
Temp Pulse Resp BP Pulse Ox
96.5 F L 68 18 113/64 97
04/24/24 11:23 04/24/24 11:23 04/24/24 11:23 04/24/24 11:23 04/24/24 11:23
Lab Results - Hematology
04/22/24 04/23/24
06:23 07:51
WBC 19.6 H 20.8 H
Lab Results - Chemistry
04/22/24 04/23/24
06:23 07:51
BUN 22 H 18
Creatinine 0.7 0.7
Estimated Creat Clear 66 68
Microbiology Results
04/17/24 11:21 Blood Culture - Final
Blood/Venous No Growth - Final Report
04/17/24 10:44 Blood Culture - Final
Blood/Venous No Growth - Final Report
Therapeutic Drug Monitoring
Vancomycin Peak 27.7 ug/ml (18-26) H 04/24/24 10:10
Vancomycin Trough 11.7 ug/ml (5-20) 04/20/24 06:01
[2024-04-24 12:21] LABS: Glucose - Point of Care 211 mg/dl (70-99)
[2024-04-24] MEDS: NOVOLOG FLEXPEN-MODERATE RESISTANCE 3 UNITS SC ×2 (12:54→17:11)
[2024-04-24 15:10] VITALS: BP 89/69
[2024-04-24 16:11] LABS: Glucose - Point of Care 249 mg/dl (70-99)
[2024-04-24] MEDS: CRESTOR 20 MG PO (17:12)
[2024-04-24 19:27] VITALS: BP 123/64
[2024-04-24] MEDS: DULCOLAX 10 MG PO (20:38)
[2024-04-24] MEDS: REMERON 7.5 MG PO (20:38)
[2024-04-24] MEDS: MIRALAX PO (20:39)
[2024-04-24 21:10] LABS: Glucose - Point of Care 276 mg/dl (70-99)
[2024-04-24 22:43] VITALS: BP 118/51
[2024-04-25] VITALS (7 sets, daily range): BP systolic 107–148; BP diastolic 68–81; BMI 21.9
[2024-04-25] MEDS: VANCOCIN 200 IV (05:08)
[2024-04-25 08:07] LABS: Glucose - Point of Care 140 mg/dl (70-99)
[2024-04-25] MEDS: ZESTRIL 10 MG PO (08:29)
[2024-04-25] MEDS: TYLENOL 1000 MG PO ×3 (08:30→21:27)
[2024-04-25] MEDS: LOPRESSOR 50 MG PO ×2 (08:30→21:27)
[2024-04-25] MEDS: PROTONIX 40 MG PO (08:30)
[2024-04-25] MEDS: ELIQUIS 5 MG PO ×2 (08:30→21:27)
[2024-04-25] MEDS: ZYLOPRIM 200 MG PO (08:30)
[2024-04-25] MEDS: NovoLIN R Flexpen 5 UNITS SC ×2 (08:31→13:49)
[2024-04-25] MEDS: LANTUS 0.1 UNITS SC (08:33)
[2024-04-25] MEDS: NOVOLOG FLEXPEN-MODERATE RESISTANCE SC ×2 (08:34→17:30)
[2024-04-25 08:45] LABS: Vancomycin Peak 24.6 ug/ml (18-26)
--- NOTE | 2024-04-25 09:07 | W.PN.HOSP.TC ---
Addendum entered and electronically signed by Adonis Dominguez MD 04/25/24 15:07:
#Hyponatremia
#Stage 2 sacral pressure injury'
Original Note:
Today's Communication/Plan
-
dc planning in next 24-48 hours
Assessment / Plan
Assessment / Plan
Physical Exam
General: No Apparent Distress and Comfortable
HEENT: Moist mucous membranes and Atraumatic
Respiratory: Clear
Cardiac: S1/S2
GI: Soft, Non Tender and Non Distended
Musculoskeletal:No Cyanosis, no edema.
Skin: Warm; No Jaundice
Neuro: AO to self and surroundings, No Slurred Speech or Tremors
Psych: Calm and Intact Judgment/Insight
#Diptheroids bacteremia
#Epidural abscess L2 and L2-L3 Osteomyelitis/discitis
-Repeat culture negative
-Await for ID decision about final recommendations
-TTE noted and negative for vegetation
-MRI lumbar results noted
-Off note, pt had recent extensive dental work done. Had some mild bleeding post procedure for few days.
-Neurosurgery consulted with no plan for surgical intervention.
-ID recs
#Acute on chronic back pain
#Closed compression fracture of lumbar vertebrae
-Lumbar x-ray showed compression deformity of L1 with multilevel degenerative disease
-Follows in the outpatient setting for epidural steroid injections ( Dr Appiah)
-Acute worsening of back pain has limited his ability to work with PT here,
-c/w heating pad
-Tramadol made him lethargic, can restart low-dose Oxy if needed.
-Continue with [id number] Tylenol
-s/p TOÑO on 04/15/24.
-family asked for ortho input, ortho agreed to plan, last injected level: Left L4-L5 ) per ortho)
-PT/OT SNF
-Added MiraLAX to avoid constipation
# Edema in both legs, c/w dependent edema, c/w compression stockings, and s/p dose of Lasix.
#Gout flare
04/14, Seems to have developed right wrist pain with swelling/ red and tenderness , 2nd metacarpal bone base , likely gout, probably precipitated by Lasix dose
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
Inflammatory markers elevated. X-rays negative for fracture
Status post IV steroids. Status post steroids 5D course.
# Anorexia,
Patient was started on low-dose Remeron which might have helped with his appetite. Unfortunately it was discontinued after a few doses upon family concern regarding lethargy. Discussed with the son bedside. Resumed Remeron at at night. Low-dose
Reglan for short course before meals
c/w PPI
# Toxic metabolic encephalopathy likely secondary to hospital-acquired delirium versus pain medication
Resolved
Patient has a very good social support and it is helping to reduce risk of delirium
#Elevated LFTs
likely due to steroid
No abdominal pain, monitor
#Permanent AF
-Nonvalvular, high [id number]; home medications include beta-leighton and Eliquis
-No known history of electrophysiologic interventions
-Presented in RVR, heart rate now WNL
#Primary Hypertension
-Home medication included beta-leighton, lisinopril.
#Dyslipidemia
-No known ASCVD history, remains on home statin therapy
#T2DM
-Home medications include metformin 500 mg twice daily
-Metformin restarted. h
Mealtime insulin was held due to poor appetite at times, now seems high blood glucose, c/w pre-meal 5 units, add Lantus monitored ISS requirements
-Check a1c at 7.9.
#Moderate aortic stenosis
-TTE from 12/2023 with Peak/mean gradients 39/21 mmHg, SHARATH 2 cm
-Does have murmur consistent with aortic stenosis on exam
-Will need follow-up after discharge
CODE STATUS: DNR/DNI, confirmed with POA son, Rohit.
DVT prophylaxis: Eliquis
PT/OT plan for SNF on discharge once medically stable.
Total time spent to see the patient, examine the patient, review data and lab results, discuss the treatment plan with patient, family at bed side, nursing staff around 55 minutes
Anticipated Discharge: Within 24 hours
Subjective/Interval History
-
Date of Service: April 25, 2024
No sob
No fevers
Objective Data
-
Vital Signs:
Vital Signs
Temp Pulse Resp BP Pulse Ox
98.3 F 102 18 148/80 97
04/25/24 07:35 04/25/24 08:30 04/25/24 07:35 04/25/24 08:30 04/25/24 07:35
I&O
04/24/24 04/25/24 04/26/24
06:59 06:59 06:59
Intake Total 300 / 300 1400 / 1400
Output Total 300 / 300 750 / 750
Balance 0 / 0 650 / 650
--- NOTE | 2024-04-25 09:12 | PHA.VAN.FU ---
Vancomycin Assessment / Plan
- Assessment
Renal Function: Stable
WBC's are: Stable
In the past 24 hrs, patient has been: Hypothermic
Concomitant Antimicrobials: none
- Assessment - Therapeutic Drug Monitoring
Extrapolated Cmax (mcg/mL): 24.6
Peak level was drawn: Appropriately
- Dosing Plan
Continue: vancomycin 1000 mg q24h - started 04/16
- Monitoring Plan
Trough Level: ordered for 04/26 530
- Follow Up
Pharmacy will continue to follow.
Vancomycin Follow UP
- -
Patient Age: 89
Patient Sex: Male
Vancomycin Day #: 10
Indication: Bacteremia
Requesting Provider: Dr. Burr/Dr Bermeo
Pertinent Antimicrobial Allergies:
sulfonamide antibiotics - throat closes; swelling
Height / Weight:
Height 5 ft 8 in
Actual Weight 65.431 kg
Pertinent Past Medical History: DM 2
- Vital Signs / Lab Results
Temp Pulse Resp BP Pulse Ox
98.3 F 102 18 148/80 97
04/25/24 07:35 04/25/24 08:30 04/25/24 07:35 04/25/24 08:30 04/25/24 07:35
Lab Results - Hematology
04/23/24
07:51
WBC 20.8 H
Lab Results - Chemistry
04/23/24
07:51
BUN 18
Creatinine 0.7
Estimated Creat Clear 68
Therapeutic Drug Monitoring
Vancomycin Peak 24.6 ug/ml (18-26) 04/25/24 08:10
Vancomycin Trough 11.7 ug/ml (5-20) 04/20/24 06:01
[2024-04-25 11:36] LABS: Glucose - Point of Care 253 mg/dl (70-99)
--- NOTE | 2024-04-25 12:03 | CM ---
Addendum entered by Landy Corrales 04/26/24 08:53:
Late entry
[employer] report# [phone], fax# [phone].
Addendum entered by Landy Corrales 04/25/24 15:45:
TC to [facility] [id number]
[employer]BC authorization# [id number]
Approved skilled level 1
Start date 04/26/24, NRD 04/30/24
Updates to [phone]
Ambulance auth [id number]
Addendum entered by Landy Corrales 04/25/24 13:07:
[facility] NPI #[id number]
Dr Grewal NPI# [id number]
Original Note:
Bed available at [facility] for today.
PICC line for today.
PT/OT pending.
Insurance auth (P).
Plan: skilled rehab once auth obtained. .
--- NOTE | 2024-04-25 13:46 | VATNOTE ---
Per Radiology report, PICC tip placement in the CAJ. OK to use. PCN notified. Instructed PCN to change all IV tubing prior to use of PICC line.
[2024-04-25] MEDS: NOVOLOG FLEXPEN-MODERATE RESISTANCE 5 UNITS SC (13:50)
--- NOTE | 2024-04-25 14:21 | PN.CDI ---
CDI
- -
CDI:
Physician Documentation Request
Admit Date: 04/08/24 09:59
Dear Doctor Alberto,
Patient admitted with closed compression fracture of lumbar vertebrae.
04/21 Nursing skin assessment, 'Stage 2 sacral pressure injury'
Physician documentation of the type and location of wounds is required for compliant documentation. Based on the above clinical findings and your assessment, please provide the following in your progress note:
Type (etiology) of ulcer/wound:
- Pressure (decubitus) ulcer
- Other
- Unable to determine
For a pressure ulcer, please also include the stage* of the ulcer:
- Stage 1 - Skin intact, non-blanchable redness
- Stage 2 - Partial thickness loss of dermis, includes intact or open blister
- Stage 3 - Full thickness tissue not including bone, tendon or muscle
- Stage 4 - Full thickness tissue loss, including exposed bone, tendon or muscle
- Unstageable - Full thickness loss in which the base of the ulcer is covered by slough (yellow, lopez, rodriguez, green or brown) and/or eschar (lopez, brown or black) in the wound bed.
- Unable to determine
Use of terms such as suspected, likely, concern for, or probable (associated with a specific diagnosis that is being evaluated, monitored, or treated as if it exists) are acceptable and can be coded in the inpatient setting, when documented at the
time of discharge.
Thank you,
Analia WEBB,RN,CCDS
CDI Specialist
Available via tiger text
Please use your independent medical judgment in providing your response.
*Source: National Pressure Ulcer Advisory Panel (NPUAP)
--- NOTE | 2024-04-25 14:53 | PN.CDI ---
CDI
- -
CDI:
Physician Documentation Request
Admit Date: 04/08/24 09:59
Dear Doctor Alberto,
Patient admitted with closed compression fracture of lumbar vertebrae.
Na levels documented below:
Laboratory Tests
04/17/24 04/19/24 04/20/24
06:44 06:26 06:01
Sodium 131 L 131 L 131 L
04/21/24 04/22/24 04/23/24
06:35 06:23 07:51
Sodium 129 L 128 L 131 L
Based on the above, please clarify in the progress notes, the appropriate diagnosis, if significant, that supports the above abnormalities and additional evaluation, monitoring and/or treatment rendered:
Hyponatremia
Insignificant abnormal lab findings
Other
Use of terms such as suspected, likely, concern for, or probable (associated with a specific diagnosis that is being evaluated, monitored, or treated as if it exists) are acceptable and can be coded in the inpatient setting, when documented at the
time of discharge.
Thank you,
Analia WEBB,RN,CCDS
CDI Specialist
available via tiger text
Please use your independent medical judgment in providing your response.
--- NOTE | 2024-04-25 14:54 | W.PN.ID1 ---
Date of Service
Date of Service: April 25, 2024
Today's Communication
Continue antibiotics.
Assessment / Plan
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
-Although usually a contaminant, multiple blood cultures with Corynebacterium stratum suggests real infection.
Leukocytosis
-Possible steroid effect
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
Elevated ESR/CRP
Chronic back pain
- s/p recent steroid injection
Essential hypertension
atrial fibrillation on Eliquis
hyperlipidemia
aortic valve insufficiency
thrombophilia
asthma
T2DM
CHF
COPD
Urinary incontinence
GERD
Recommendations:
Continue with vancomycin.
Follow Vanco levels closely to prevent renal toxicity.
Patient will need a 6 to 8-week course of antibiotics. (Through 05/28/24 to 06/11/24)
Repeat blood cultures without growth
Monitor white count temperature curve.
SNF/Home infusion sheet has been placed on paper chart.
����������������������������������������������������������
Chief Complaint
-: Bacteremia and Other (Epidural abscess. Vertebral osteomyelitis/discitis)
Subjective / Review of Systems
Review of Systems: No Fever and No Chills
Vital Signs / Physical Exam
Vital Signs
Vital Signs
Temp Pulse Resp BP Pulse Ox
98.6 F 81 16 135/70 98
04/25/24 11:47 04/25/24 11:47 04/25/24 11:47 04/25/24 11:47 04/25/24 11:47
Physical Exam
Constitutional: No Acute Distress, Comfortable, Chronically Ill and Non-toxic
Eyes: Sclera Anicteric
Cardiovascular: S1/S2; Negative S3/S4
Pulmonary: Clear and Non Labored
Gastrointestinal: Soft and Non Distended
Skin: Negative Rash or Jaundice
Neurological: Awake and Alert
Psychological: Calm
Objective Data
Lab Data
Lab Results
04/23/24 07:51
04/23/24 07:51
ESR 51 mm/hour (0-20) H 04/14/24 10:25
PT 16.7 Sec (11.4-14.6) H 04/15/24 07:59
INR 1.32 04/15/24 07:59
Estimated Creat Clear 68 ml/min 04/23/24 07:51
Total Bilirubin 0.7 mg/dl (0.2-1.3) 04/15/24 06:56
AST 60 U/L (17-59) H 04/15/24 06:56
ALT 81 U/L (0-50) H 04/15/24 06:56
Alkaline Phosphatase 253 U/L (38-126) H 04/15/24 06:56
C-Reactive Protein > 270.00 mg/L (0.0-10.00) H 04/14/24 10:25
Most recent labs reviewed.
Micro Results:
04/17/24 11:21 Blood Culture - Final
Blood/Venous No Growth - Final Report
04/17/24 10:44 Blood Culture - Final
Blood/Venous No Growth - Final Report
04/14/24 12:57 Blood Culture - Final
Blood/Venous Diptheroids
Gram Stain - Final
04/15/24 14:09 Blood Culture - Final
Blood/Venous Diptheroids
Gram Stain - Final
04/15/24 13:45 Blood Culture - Final
Blood/Venous Diptheroids
Gram Stain - Final
04/16/24 09:35 Nasal Screen MRSA (PCR) - Final
Nose MRSA not detected - performed by PCR methodology.
04/08/24 07:17 Influenza Types A & B (ALISHA) - Final
Nasal Swab Negative for Influenza A & B, NAAT
Negative results must be combined with clinical observations
and patient history.
Nucleic Acid Amplification test (NAAT)performed on the
[employer] platform.
Imaging:
04/18/2024 MRI lumbar spine with and without contrast: Active discitis/osteomyelitis at L2/3. Associated small epidural abscess at the L2 level. Please see full dictation for additional detail.
04/16/2024 ECHO (TTE): Normal LV ventricular size. No regional wall motion abnormalities. EF approximately 55%. Mild to moderate mitral regurgitation. Mild to moderate tricuspid regurgitation. Moderate aortic stenosis. No vegetation noted.
--- NOTE | 2024-04-25 14:59 | PN.CDI ---
Addendum entered and electronically signed by Adonis Dominguez MD 04/25/24 15:07:
Acute
Original Note:
CDI
- -
CDI:
Physician Documentation Request
Admit Date: 04/08/24 09:59
Dear Doctor Alberto,
Patient admitted with closed compression fracture of lumbar vertebrae.
04/25 PN,' Diptheroids bacteremia ....L2-L3 Osteomyelitis/discitis....'
Patient receiving IV Vancomycin.
Please clarify which of the following likely represents the acuity of the OSTEOMYELITIS:
Acute
Acute on chronic
Chronic
Other
Use of terms such as suspected, likely, concern for, or probable (associated with a specific diagnosis that is being evaluated, monitored, or treated as if it exists) are acceptable and can be coded in the inpatient setting, when documented at the
time of discharge.
Thank you,
Analia WEBB,RN,CCDS
CDI Specialist
Available via tiger text
Please use your independent medical judgment in providing your response.
[2024-04-25 16:40] LABS: Glucose - Point of Care 127 mg/dl (70-99)
[2024-04-25] MEDS: CRESTOR 20 MG PO (17:34)
[2024-04-25] MEDS: NovoLIN R Flexpen SC (20:19)
[2024-04-25 21:09] LABS: Glucose - Point of Care 116 mg/dl (70-99)
[2024-04-25] MEDS: MIRALAX 17 GRAMS PO (21:27)
[2024-04-25] MEDS: REMERON 7.5 MG PO (21:27)
[2024-04-25] MEDS: DULCOLAX 10 MG PO (21:27)
[2024-04-26 03:33] VITALS: BP 128/63
[2024-04-26 05:12] LABS: Vancomycin Trough 13.3 ug/ml (5-20)
[2024-04-26] MEDS: VANCOCIN 200 IV (05:44)
[2024-04-26 06:00] VITALS: BMI 21.8
[2024-04-26 07:00] VITALS: BP 133/77
--- NOTE | 2024-04-26 08:27 | PHA.VAN.FU ---
Vancomycin Assessment / Plan
- Assessment
Renal Function: Stable
In the past 24 hrs, patient has been: Afebrile
- Assessment - Therapeutic Drug Monitoring
Extrapolated Cmax (mcg/mL): 26.1
Peak level was drawn: Appropriately (24.6)
Extrapolated Cmin (mcg/mL): 13.1
Trough Drawn: Appropriately (13.3)
Levels were drawn: At steady state
Calculated AUC (mcg*h/mL): 454
Calculated ke: 0.03
Calculated half life (H): 23.1
Calculated Vd (L): 73.46
Calculated Vanc CL (ml/min): 36.7
- Dosing Plan
Continue: vancomycin 1000 mg q24h
- Monitoring Plan
Level(s) appropriate: Recheck trough at minimum of weekly intervals, Repeat sooner for changes in renal function or clinical status
- Follow Up
Pharmacy will continue to follow.
Vancomycin Follow UP
- -
Patient Age: 89
Patient Sex: Male
Vancomycin Day #: 11
Indication: Bacteremia
Requesting Provider: Dr. Burr/Dr Bermeo
Pertinent Antimicrobial Allergies:
sulfonamide antibiotics - throat closes; swelling
Height / Weight:
Height 5 ft 8 in
Actual Weight 65.119 kg
IBW in k.4 kg
Pertinent Past Medical History: DM 2
- Vital Signs / Lab Results
Temp Pulse Resp BP Pulse Ox
97.9 F 92 16 128/63 97
04/26/24 03:33 04/26/24 03:33 04/26/24 03:33 04/26/24 03:33 04/26/24 03:33
Lab Results - Chemistry
04/23/24
07:51
BUN 18
Creatinine 0.7
Estimated Creat Clear 68
Therapeutic Drug Monitoring
Vancomycin Peak 24.6 ug/ml (18-26) 04/25/24 08:10
Vancomycin Trough 13.3 ug/ml (5-20) 04/26/24 04:41
[2024-04-26 08:42] LABS: Glucose - Point of Care 132 mg/dl (70-99)
[2024-04-26] MEDS: ZYLOPRIM 200 MG PO (08:47)
[2024-04-26] MEDS: TYLENOL 1000 MG PO (08:47)
[2024-04-26] MEDS: ELIQUIS 5 MG PO (08:47)
[2024-04-26] MEDS: PROTONIX 40 MG PO (08:48)
[2024-04-26] MEDS: ZESTRIL 10 MG PO (08:48)
[2024-04-26] MEDS: LOPRESSOR 50 MG PO (08:49)
[2024-04-26] MEDS: LANTUS 0.1 UNITS SC (08:49)
[2024-04-26] MEDS: NOVOLOG FLEXPEN-MODERATE RESISTANCE SC (08:50)
[2024-04-26] MEDS: NovoLIN R Flexpen 5 UNITS SC ×2 (08:52→13:02)
--- NOTE | 2024-04-26 08:54 | W.PN.HOSP.TC ---
Today's Communication/Plan
-
dc
Assessment / Plan
Assessment / Plan
Physical Exam
General: No Apparent Distress and Comfortable
HEENT: Moist mucous membranes and Atraumatic
Respiratory: Clear
Cardiac: S1/S2
GI: Soft, Non Tender and Non Distended
Musculoskeletal:No Cyanosis, no edema.
Skin: Warm; No Jaundice
Neuro: AO to self and surroundings, No Slurred Speech or Tremors
Psych: Calm and Intact Judgment/Insight
#Diptheroids bacteremia
#Epidural abscess L2 and L2-L3 Osteomyelitis/discitis
-Repeat culture negative
-Await for ID decision about final recommendations
-TTE noted and negative for vegetation
-MRI lumbar results noted
-Off note, pt had recent extensive dental work done. Had some mild bleeding post procedure for few days.
-Neurosurgery consulted with no plan for surgical intervention.
-ID recs
#Acute on chronic back pain
#Closed compression fracture of lumbar vertebrae
-Lumbar x-ray showed compression deformity of L1 with multilevel degenerative disease
-Follows in the outpatient setting for epidural steroid injections ( Dr Appiah)
-Acute worsening of back pain has limited his ability to work with PT here,
-c/w heating pad
-Tramadol made him lethargic, given low-dose Oxy upon dc to rehab to be used as PRN only ( family agreed)
-Continue with [id number] Tylenol
-s/p TOÑO on 04/15/24.
-family asked for ortho input, ortho agreed to plan, last injected level: Left L4-L5 ) per ortho)
-PT/OT SNF
-Added MiraLAX to avoid constipation
# Edema in both legs, c/w dependent edema, c/w compression stockings, and s/p dose of Lasix.
#Gout flare
04/14, Seems to have developed right wrist pain with swelling/ red and tenderness , 2nd metacarpal bone base , likely gout, probably precipitated by Lasix dose
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
Inflammatory markers elevated. X-rays negative for fracture
Status post IV steroids. Status post steroids 5D course.
# Anorexia,
Patient was started on low-dose Remeron which might have helped with his appetite. Unfortunately it was discontinued after a few doses upon family concern regarding lethargy. Discussed with the son bedside. Resumed Remeron at at night. Low-dose
Reglan for short course before meals
c/w PPI
# Toxic metabolic encephalopathy likely secondary to hospital-acquired delirium versus pain medication
Resolved
Patient has a very good social support and it is helping to reduce risk of delirium
#Elevated LFTs
likely due to steroid
No abdominal pain, monitor
#Permanent AF
-Nonvalvular, high [id number]; home medications include beta-leighton and Eliquis
-No known history of electrophysiologic interventions
-Presented in RVR, heart rate now WNL
#Primary Hypertension
-Home medication included beta-leighton, lisinopril.
#Dyslipidemia
-No known ASCVD history, remains on home statin therapy
#T2DM
-Home medications include metformin 500 mg twice daily
-Metformin restarted. h
Mealtime insulin was held due to poor appetite at times, now seems high blood glucose, c/w pre-meal 5 units, add Lantus monitored ISS requirements
-Check a1c at 7.9.
#Moderate aortic stenosis
-TTE from 12/2023 with Peak/mean gradients 39/21 mmHg, SHARATH 2 cm
-Does have murmur consistent with aortic stenosis on exam
-Will need follow-up after discharge
CODE STATUS: DNR/DNI, confirmed with POA sonRohit.
DVT prophylaxis: Eliquis
PT/OT plan for SNF on discharge once medically stable.
Total discharge time spent to see the patient, examine the patient, review data and lab results, discuss the discharge plan with patient, family at bed side, nursing staff around 69 minutes
Anticipated Discharge: Today
Subjective/Interval History
-
Date of Service: April 26, 2024
back pain to the side
No chest pain
Objective Data
-
Vital Signs:
Vital Signs
Temp Pulse Resp BP Pulse Ox
97.9 F 92 16 128/63 97
04/26/24 03:33 04/26/24 03:33 04/26/24 03:33 04/26/24 03:33 04/26/24 03:33
I&O
04/25/24 04/26/24 04/27/24
06:59 06:59 06:59
Intake Total 1400 / 1400 660 / 660
Output Total 750 / 750
Balance 650 / 650 660 / 660
--- NOTE | 2024-04-26 08:55 | CM ---
Patient for transfer to [facility] today.
Per liaison, PICC line, CXR and script fax received yesterday, room ready.
Ambulance transport forms on chart.
[facility]
report# [phone]
fax# [phone]
[2024-04-26 11:00] VITALS: BP 111/62
--- NOTE | 2024-04-26 12:52 | PTCARENOTE ---
Patient complained of lower back pain unrelieved with Tylenol. Hospitalist notified. K Pad applied.
[2024-04-26 12:55] LABS: Glucose - Point of Care 272 mg/dl (70-99)
[2024-04-26] MEDS: NOVOLOG FLEXPEN-MODERATE RESISTANCE 5 UNITS SC (13:04)
--- NOTE | 2024-04-27 14:16 | W.DCSUMMARY ---
Discharge Summary
Discharge Data
Date of Admission: 04/08/24
Date of Discharge: 04/26/24
-
Pending Results: No
Hospital Course
89 years old male who was brought in from home due to worsening ambulatory dysfunction, acute on chronic back pain and weakness with loss of appetite. Patient reported that he was getting epidural steroid injections in outpatient settings that
would help temporarily but he continued to suffer from back pain with limitation of his movements. He was recently admitted for gouty arthritis was discharged on colchicine. Patient was admitted to the hospital. He was noted to have leukocytosis
but no fever. Orthopedic was consulted and recommended pain control with epidural steroid injection. Colchicine was discontinued for possibility of gastrointestinal side effects. Patient was started on allopurinol. Patient had an episode of
gouty arthritis in his right hand and was given steroid therapy with titration of dose of allopurinol. Patient was noted to continue to have back pain despite pain medication. He was also noted to have constitutional symptoms including loss of
appetite, weakness, leukocytosis. Inflammatory markers were significantly elevated. Blood culture came positive for corynebacterium stratum. MRI of the lumbar spine showed L2 epidural abscess and acute osteomyelitis/discitis of L2/L3.
Neurosurgery was consulted and with lack of neurological deficit, recommended infection treatment with no surgical intervention. Infectious diseases consultants followed the patient. Patient was started on intravenous vancomycin with monitoring of
blood work. Patient started to improve slowly. His pain was managed with Tylenol. Narcotics treatments were avoided due to patient's underlying comorbidities including age. Patient had history of atrial fibrillation was noted to have
tachycardia. Metoprolol dose was increased with good response. Patient and family reported anorexia and some sleep disturbances. Addition of Remeron was discussed with the patient and family with counseling regarding potential side effects.
Patient was started on low-dose Remeron with improvement in his appetite. He was given Reglan Premeal for short trial also. Patient remained hemodynamically stable. He was evaluated by physical therapy and was advised to go to snf
facility. Patient received PICC line in his right upper extremity and tolerated vancomycin treatment. Pain control was discussed with patient and family and agreed to add low-dose oxycodone to be used only for severe pain and while undergoing
physical therapy. Patient was discharged to snf facility in a stable condition.
Discharge Plan
-
Patient Disposition: [facility]/SNF
Discharge Diagnosis/Procedures: Bacteremia with corynebacterium stratum
Epidural abscess at L2
Lumbar 2-3 acute osteomyelitis/discitis
Acute on chronic back pain
Diabetes, do Acu-check AC & HS
A fib
Gout
Blood work CBC, BMP, ESR, CRP, vancomycin trough q Mondays sent to Dr Bermeo ( please follow the script given )
Diet: As tolerated and Diabetic, Carb Controlled
Others Tests: Ultrasound: 10/10/24 @ 2pm
Activity Restrictions/Additional Instructions:
Wound Care Instructions
Buttocks: clean with soap and water, silicone foam or A&D ointment recommended if foam not staying. Change foam q 3 days and prn soilage.
air chair cushion when sitting, can take upon discharge
air mattress
increase protein in diet.
Follow up at wound care center, if not healing call for an appointment.
Referrals:
Simi Green PA-C [Family Provider] -
Silvino Bermeo DO [Active] - in two to four weeks
Jeferson Huertas MD [Active] - 10/18/24 3:30 pm (Vascular surgery office follow-up)
Chandan Appiah MD [Active] - in one to two weeks
Prescriptions:
New
polyethylene glycol 3350 17 gram Powder In Packet
17 g PO HS Qty: 30 0RF
allopurinol 100 mg Tablet
200 mg PO DAILY Qty: 30 0RF
acetaminophen [Tylenol Extra Strength] 500 mg Tablet
1,000 mg PO TID Qty: 60 0RF
pantoprazole 40 mg Tablet,Delayed Release (Dr/Ec)
40 mg PO DAILY Qty: 30 0RF
metoprolol tartrate 50 mg Tablet
50 mg PO BID Qty: 60 0RF
bisacodyl 5 mg Tablet,Delayed Release (Dr/Ec)
10 mg PO HS Qty: 20 0RF
Novolin R FlexPen 100 unit/mL (3 mL) Insulin Pen
5 unit SC AC Qty: 90 0RF
mirtazapine 7.5 mg Tablet
7.5 mg PO HS Qty: 30 0RF
Insulin Glargine Lantus [Lantus] 10 UNITS
Subcutaneous Insulin Syringe [Syringe-Insulin] 0 UNIT
As Directed mls/hr SC DAILY
Ordered By: Adonis Dominguez MD
Last Taken: 04/26/24 08:49 0.1 mls
oxycodone 5 mg tablet
2.5 mg PO Q4H PRN (Reason: moderate to severe pain) Qty: 10 0RF
vancomycin 1,000 mg recon soln
1,000 mg IV DAILY 42 Days Qty: 42 0RF
Continued
rosuvastatin 20 mg Tablet
20 mg PO QPM
omega 5-pzo-wnd-fish oil [Fish Oil] 1,000 mg (120 mg-180 mg) Capsule
1 cap PO DAILY
Eliquis 5 mg Tablet
5 mg PO BID
lisinopril 10 mg Tablet
10 mg PO DAILY
Discontinued
metformin 500 mg Tablet
500 mg PO BID
metoprolol tartrate 25 mg Tablet
25 mg PO BID Qty: 60 0RF
acetaminophen [Tylenol Arthritis Pain] 650 mg Tablet Extended Release
1,300 mg PO Q8HPRN PRN (Reason: mild pain)
colchicine 0.6 mg tablet
0.6 mg PO DAILY
Patient Comments:
04/08/24: to take for 7 days, tomorrow will be last dose
Discharge Orders:
Discharge Patient (As Directed); Ordered 04/26/24
Ordered By: Adonis Dominguez
Discharge Date and Time
Discharge Date/Time: 04/26/24 14:20
Print Language: ICELANDIC
== END 2024-04-26 14:20 | DRG 539 ==
LOC: 4 WEST ACU 09:59
PROVIDERS: Hospitalist; Internal Medicine; Radiology Vascular & Interventional Radiology; ADMITTING PHYSICIAN Internal Medicine; CONSULT PHYSICIAN Orthopaedic Surgery; EMERGENCY PHYSICIAN Emergency Medicine; FAMILY PHYSICIAN Student in an Organized Health Care Education/Training Program; OTHER PHYSICIAN Internal Medicine Infectious Disease; OTHER PHYSICIAN Neurological Surgery; OTHER PHYSICIAN Surgery Vascular Surgery
PROC: 3E0R33Z Introduction of Anti-inflammatory into Spinal Canal, Percutaneous Approach (ICD-10-PCS; 2024-04-15)
DX: M46.26 Osteomyelitis of vertebra, lumbar region (principal); G06.1 Intraspinal abscess and granuloma; G92.8 Other toxic encephalopathy; I48.21 Permanent atrial fibrillation; Z87.891 Personal history of nicotine dependence; M10.9 Gout, unspecified; R63.0 Anorexia; I11.0 Hypertensive heart disease with heart failure; I50.9 Heart failure, unspecified; E11.69 Type 2 diabetes mellitus with other specified complication; Z66 Do not resuscitate; G89.29 Other chronic pain; M51.16 Intervertebral disc disorders with radiculopathy, lumbar region; Z79.01 Long term (current) use of anticoagulants; L89.152 Pressure ulcer of sacral region, stage 2; Z68.21 Body mass index [BMI] 21.0-21.9, adult; Z11.52 Encounter for screening for COVID-19
CPT/HCPCS: 62323; 71045; 72100; 72158; 73120; 80048; 80053; 80202; 81003; 81015; 82947; 82962; 83036; 83735; 84484; 85025; 85027; 85610; 85652; 86140; 87040; 87205; 87502; 87641; 87811; 93005; 93306; 93922; 93925; 96374; 96375; 97116; 97163; 97166; 97530; 97535; 99291; A9575

== ENCOUNTER → 2024-04-29 09:36 | Outpatient (REF) | payer OTHER, SELFPAY ==
[2024-04-29 12:13] LABS: % Basophils 0.1 % (0-2); % Eosinophils 0.1 % (0-6); % Immature Granulocytes 1.1 % (0-0.5); % Lymphocytes 2.4 % (20.5-51.1); % Monocytes 5.9 % (1.7-9.3); % Neutrophils 90.4 % (42.2-75.2); Absolute Immature Granulocytes 0.2 10^3/uL (0-0.05); Absolute Lymphocytes 0.4 10^3/uL (1.2-3.4); Absolute Monocytes 1.1 10^3/uL (0.1-0.6); Absolute Neutrophils 16.9 10^3/uL (1.4-6.5); Hematocrit 36.5 % (39.0-52.0); Hemoglobin 11.4 g/dL (13.0-18.0); Mean Corp Hgb Conc. 31.2 g/dL (33.0-37.0); Mean Corpuscular Hgb 29.1 pg (27.0-31.0); Mean Corpuscular Volume 93.1 fL (80.0-94.0); Mean Platelet Volume 9.3 fL (7.4-10.4); Nucleated Red Blood Cells % 0 % (-); Platelet Count 415 10^3/uL (130-400); Red Blood Cell Count 3.92 10^6/uL (4.70-6.10); Red Cell Dist. Width 15.7 % (11.5-14.5); White Blood Cell Count 18.6 10^3/uL (4.8-10.8)
[2024-04-29 12:42] LABS: Erythrocyte Sed Rate 58 mm/hour (0-20); Vancomycin Trough 11.9 ug/ml (5-20)
[2024-04-29 12:43] LABS: Blood Urea Nitrogen 21 mg/dl (9-20); Calcium 8.1 mg/dl (8.4-10.2); Carbon Dioxide 27 mmol/L (22-30); Chloride 100 mmol/L (98-107); Glucose 174 mg/dl (70-99); Potassium 3.8 mmol/L (3.5-5.1); Sodium 136 mmol/L (135-145); eGFR > 60.00
== END ==
LOC: OLABP 09:36
PROVIDERS: ATTENDING PHYSICIAN Family Medicine
DX: I35.0 Nonrheumatic aortic (valve) stenosis (principal); M46.26 Osteomyelitis of vertebra, lumbar region; A41.9 Sepsis, unspecified organism; S32.010D Wedge compression fracture of first lumbar vertebra, subsequent encounter for fracture with routine healing; M54.16 Radiculopathy, lumbar region; M54.50 Low back pain, unspecified; R26.2 Difficulty in walking, not elsewhere classified; R60.0 Localized edema; M10.031 Idiopathic gout, right wrist; E78.5 Hyperlipidemia, unspecified; R94.6 Abnormal results of thyroid function studies; E11.9 Type 2 diabetes mellitus without complications
CPT/HCPCS: 80048; 80202; 85025; 85652; 86140

== ENCOUNTER → 2024-05-06 13:02 | Outpatient (REF) | payer OTHER, SELFPAY ==
[2024-05-06 17:07] LABS: Blood Urea Nitrogen 36 mg/dl (9-20); Calcium 8.3 mg/dl (8.4-10.2); Carbon Dioxide 20 mmol/L (22-30); Chloride 102 mmol/L (98-107); Glucose 138 mg/dl (70-99); Potassium 4.1 mmol/L (3.5-5.1); Sodium 139 mmol/L (135-145); eGFR 58.17
[2024-05-06 17:11] LABS: Vancomycin Trough 16.7 ug/ml (5-20)
[2024-05-06 17:23] LABS: C-Reactive Protein > 270.00 mg/L (0.0-10.00)
== END ==
LOC: OLABP 13:02
PROVIDERS: ATTENDING PHYSICIAN Family Medicine
DX: I35.0 Nonrheumatic aortic (valve) stenosis (principal); A41.9 Sepsis, unspecified organism; M54.16 Radiculopathy, lumbar region; R26.2 Difficulty in walking, not elsewhere classified; E78.5 Hyperlipidemia, unspecified; E11.9 Type 2 diabetes mellitus without complications
CPT/HCPCS: 36415; 80048; 80202; 86140

== ENCOUNTER → 2024-05-07 15:37 | Outpatient (REF) | payer OTHER, MEDICARE, SELFPAY ==
[2024-05-07 18:21] LABS: % Basophils 0.1 % (0-2); % Immature Granulocytes 0.5 % (0-0.5); % Lymphocytes 1.3 % (20.5-51.1); % Monocytes 2.8 % (1.7-9.3); % Neutrophils 95.3 % (42.2-75.2); Absolute Immature Granulocytes 0.1 10^3/uL (0-0.05); Absolute Lymphocytes 0.2 10^3/uL (1.2-3.4); Absolute Monocytes 0.5 10^3/uL (0.1-0.6); Absolute Neutrophils 16.4 10^3/uL (1.4-6.5); Hematocrit 29.1 % (39.0-52.0); Hemoglobin 9.4 g/dL (13.0-18.0); Mean Corp Hgb Conc. 32.3 g/dL (33.0-37.0); Mean Corpuscular Hgb 30.1 pg (27.0-31.0); Mean Corpuscular Volume 93.3 fL (80.0-94.0); Nucleated Red Blood Cells % 0 % (-); Platelet Count 388 10^3/uL (130-400); Red Blood Cell Count 3.12 10^6/uL (4.70-6.10); Red Cell Dist. Width 16.5 % (11.5-14.5); White Blood Cell Count 17.2 10^3/uL (4.8-10.8)
[2024-05-07 18:23] LABS: Erythrocyte Sed Rate 135 mm/hour (0-20)
== END ==
LOC: OLABP 15:37
PROVIDERS: ATTENDING PHYSICIAN Family Medicine
DX: R63.0 Anorexia (principal); R94.6 Abnormal results of thyroid function studies; I35.0 Nonrheumatic aortic (valve) stenosis; M46.26 Osteomyelitis of vertebra, lumbar region; A41.9 Sepsis, unspecified organism; S32.010D Wedge compression fracture of first lumbar vertebra, subsequent encounter for fracture with routine healing; M54.16 Radiculopathy, lumbar region; M54.50 Low back pain, unspecified; R26.2 Difficulty in walking, not elsewhere classified; R60.0 Localized edema; M10.031 Idiopathic gout, right wrist; E78.5 Hyperlipidemia, unspecified; E11.9 Type 2 diabetes mellitus without complications
CPT/HCPCS: 36415; 85025; 85652

== ENCOUNTER → 2024-05-08 10:31 | Outpatient (REF) | payer OTHER, SELFPAY ==
[2024-05-08 12:57] LABS: Vancomycin Trough 23.6 ug/ml (5-20)
== END ==
LOC: OLABP 10:31
PROVIDERS: ATTENDING PHYSICIAN Family Medicine
DX: A41.9 Sepsis, unspecified organism (principal); I48.21 Permanent atrial fibrillation; I10 Essential (primary) hypertension; E11.9 Type 2 diabetes mellitus without complications; I35.0 Nonrheumatic aortic (valve) stenosis
CPT/HCPCS: 36415; 80202